=== PATIENT | male | born 1970 | race Caucasian/White ===

== ENCOUNTER → 2020-11-03 08:11 | Outpatient (BNVA) | payer OTHER, SELFPAY | PROVIDERS: PCP Nurse Practitioner Family; Visit Provider Nurse Practitioner Family ==

== ENCOUNTER → 2021-01-26 07:52 | Outpatient (BNVA) | payer OTHER, SELFPAY | PROVIDERS: PCP Nurse Practitioner Family; Visit Provider Nurse Practitioner Family ==

== ENCOUNTER 2021-03-03 09:52 | Day surgery (SDC) | payer OTHER, SELFPAY ==
[2021-02-25 14:16] VITALS: BMI 25.7
--- NOTE | 2021-03-02 12:33 | P.CONAN_ITS ---
Documented by User: Leonor Haro NP 03/02/21 12:34 HPI - Anesthesia Eval Consult details Narrative: 50yo M for Colonoscopy Xarelto for afib PMFSH Past Medical History Medical History Atrial fibrillation COVID-19 vaccine series completed Elevated cholesterol GERD (gastroesophageal reflux disease) HTN (hypertension) Sleep apnea Surgical History Surgical History Hx of tonsillectomy S/P ablation of atrial fibrillation Social History Social History Household Members: Family Alcohol intake: current Alcohol intake frequency: holidays/special occasions only Patient Tobacco Use Status: Never used Tobacco Use of substances other than those prescribed or required for medical reasons: No Have you been hit, kicked, punched, or otherwise hurt by someone within the past year? If so, by whom?: No Are you DNR?: No Advance Directives: No Advance Directives Information Provided: Yes Advance Directives on File: No Recently lost weight without trying: No Eating poorly because of decreased appetite: No Nutrition Risks: No Nutritional Risk Poor oral hygiene: No Meds Allergies Allergy/AdvReac Type Severity Reaction Status Date / Time No Known Allergies Allergy Verified 02/25/21 12:22 Home Medications Medication Instructions Recorded Confirmed Last Taken Type pantoprazole 40 mg tablet,delayed 40 mg PO DAILY 11/03/20 02/25/21 Unknown History release metoprolol succinate 100 mg 100 mg PO DAILY 01/26/21 02/25/21 Unknown History tablet,extended release 24 hr rivaroxaban 20 mg tablet (Xarelto) 20 mg PO BEDTIME 01/26/21 02/25/21 Unknown History Exam Exam Date and Time: March 02, 2021 1233 Height,Weight and Vital Signs: Height 6 ft 2 in Weight 90.718 kg Assessment and Plan Assessment Anesthesia Assessment: Chart Reviewed Documented by User: Lluvia Jane MD 03/03/21 11:41 FOR[facility]LY [facility], [facility] Past Medical History Medical History Atrial fibrillation COVID-19 vaccine series completed Elevated cholesterol GERD (gastroesophageal reflux disease) HTN (hypertension) Sleep apnea Surgical History Surgical History Hx of tonsillectomy S/P ablation of atrial fibrillation History of Problems with Anesthesia: No Social History Social History Household Members: Family Alcohol intake: current Alcohol intake frequency: holidays/special occasions only Patient Tobacco Use Status: Never used Tobacco Use of substances other than those prescribed or required for medical reasons: No Have you been hit, kicked, punched, or otherwise hurt by someone within the past year? If so, by whom?: No Are you DNR?: No Advance Directives: No Advance Directives Information Provided: Yes Advance Directives on File: No Recently lost weight without trying: No Eating poorly because of decreased appetite: No Nutrition Risks: No Nutritional Risk Poor oral hygiene: No Meds Allergies Allergy/AdvReac Type Severity Reaction Status Date / Time No Known Allergies Allergy Verified 02/25/21 12:22 Home Medications Medication Instructions Recorded Confirmed Last Taken Type pantoprazole 40 mg tablet,delayed 40 mg PO DAILY 11/03/20 02/25/21 Unknown History release metoprolol succinate 100 mg 100 mg PO DAILY 01/26/21 02/25/21 Unknown History tablet,extended release 24 hr rivaroxaban 20 mg tablet (Xarelto) 20 mg PO BEDTIME 01/26/21 02/25/21 Unknown History Exam Airway Mallampati Class: III TM Dist: >3cm Neck ROM: Full Loose/Missing/Broken Teeth: No Heart: RRR Lungs: CTA Assessment and Plan Assessment Anesthesia Assessment: Anesthesia Plan Discussed Final Anesthetic Review History of Problems with Anesthesia: No NPO: Yes ASA Class: III Final Preanesthetic Review: Meds/Allgs Chart Reviewed, Consent Obtained/Reviewed and Anes Risks/Benef Reviewed Patient Risk: Intermediate Procedure Risk: Low Anesthetic Plan Anesthetic Plan: MAC: Disposition: Standard PACU
[2021-03-03 10:57] VITALS: BP 138/96; PULSE 93; RESP 16; TEMP 35.9; O2SAT 96
[2021-03-03] MEDS: Lactated Ringers 1,000 ML 100 ML IVCONT (11:19)
--- NOTE | 2021-03-03 11:31 | P.HPSUR_ITS ---
Pre-Procedural Eval Section A Date of Service: 03/03/21 Section B Chief Complaint: Screening Relevant Family History (Specify if Yes): No Relevant Social History: None Present Medications: see Short Stay Collaborative assessment Medical History: Significant History (Atrial fibrillation COVID-19 vaccine series completed Elevated cholesterol GERD (gastroesophageal reflux disease) HTN (hypertension) Sleep apnea) History of Previous Operations: Relevant previous surgery/procedure and date(s) (Hx of tonsillectomy S/P ablation of atrial fibrillation) Allergies: Allergies Allergy/AdvReac Type Severity Reaction Status Date / Time No Known Allergies Allergy Verified 02/25/21 12:22 Review of Systems Sugical H&P ROS: Negative: Constitution, Cardiovascular, Respiratory, Neurological, Psychiatric, Hem-Onc, Allergic/Immunologic, Gastrointestinal, Genitourinary, Musculoskeletal, Integumentary, Endocrine and Eyes/Ears/Nose/Throat Exam Surgical H&P Exam: Normal: HEENT, Normal: Heart, Normal: Lungs, Normal: Extrem ities, Normal: Abdomen, Normal: Skin and Normal: Neurological Plan Diagnosis/Plan: Unchanged I have reviewed the history and physical and performed a pertinent physical examination on my patient. No changes have occurred unless specified.
--- NOTE | 2021-03-03 11:32 | PM.OP ---
Brief Operative Note Date of Service: 03/03/21 Pre-op diagnosis: screening colon Post-op diagnosis: same Procedure: see op note Surgeon: Luis A Dominguez MD Anesthesia: MAC Was an Complaint Manager used for this Procedure?: No Estimated blood loss (mL): 0 Condition: stable Disposition: PACU
--- NOTE | 2021-03-03 11:32 | W.PM.OPN ---
Operative Note Operative Note Date of Service: 03/03/21 Narrative: Operative Information Procedure Description: Colonoscopy COLONOSCOPY Instrument: Olympus variable stiffness adult scope 190L Colonoscopy Monitoring: Vital signs and clinical assessment, continuous EKG monitoring, Pulse oximetry, Carbon Dioxide monitoring and blood pressure monitoring were done throughout the procedure. Colon withdrawal time was 11 minutes. Procedure: The patient was placed in the left lateral decubitis position and pre-procedure medications were administered. After a digital rectal examination of the ano-rectum, the video colonoscope was inserted into the rectum and advanced through the colon to the cecum/TI. The colonoscope was slowly withdrawn in a retrograde panoramic fashion and the colon mucosa was carefully examined including a retroflexed view of the rectum. Findings and interventions are described below. Procedure Difficulty:moderate Findings: Terminal Ileum-normal Cecum:normal right sided retroflexion also normal Ascending Colon: normal Transverse Colon -normal Descending Colon:normal Sigmoid Colon: mild diverticulosis Rectum: Retroflexion with moderate sized inflammed internal hemorrhoids, grade II Anorectum - normal Colon preparation: [place] Bowel Preparation Scale Right colon; 2 Transverse colon: 2 Left colon; 2 (0 = Unprepared colon segment with mucosa not seen due to solid stool that cannot be cleared. 1 = Portion of mucosa of the colon segment seen, but other areas of the colon segment not well seen due to staining, residual stool and/or opaque liquid. 2 = Minor amount of residual staining, small fragments of stool and/or opaque liquid, but mucosa of colon segment seen well. 3 = Entire mucosa of colon segment seen well with no residual staining, small fragments of stool or opaque liquid) Impression and Post Procedure Diagnosis: internal hemorrhoids diverticular disease Plan: High fiber diet leaflet Avoid straining at stool, epsom salts and sitz bath, anusol supps or cream Repeat Colonoscopy in 10 years or earlier if clinically indicated Above findings were reviewed with the patient and relevant handouts were provided if indicated.
[2021-03-03 12:10] VITALS: BP 112/85; PULSE 87; RESP 18; TEMP 36.4; O2SAT 99
[2021-03-03 12:26] VITALS: BP 127/92; PULSE 77; RESP 16; TEMP 36.4; O2SAT 95
[2021-03-03 12:40] VITALS: BP 117/74; PULSE 72; RESP 16; TEMP 36.4; O2SAT 100
== END 2021-03-03 13:07 | disposition home or self-care (01) ==
PROVIDERS: PCP Internal Medicine; Visit Provider Internal Medicine Gastroenterology
PROC: 0DJD8ZZ Inspection of Lower Intestinal Tract, Via Natural or Artificial Opening Endoscopic (ICD-10-PCS; CPT 45378; principal; 2021-03-03 12:00)
DX: Z12.11 Encounter for screening for malignant neoplasm of colon (principal); K57.30 Diverticulosis of large intestine without perforation or abscess without bleeding; K64.1 Second degree hemorrhoids; K21.9 Gastro-esophageal reflux disease without esophagitis; I48.91 Unspecified atrial fibrillation; E78.00 Pure hypercholesterolemia, unspecified; G47.30 Sleep apnea, unspecified; I10 Essential (primary) hypertension; Z79.01 Long term (current) use of anticoagulants; Z79.899 Other long term (current) drug therapy
CPT/HCPCS: 45378; J2250

== ENCOUNTER 2021-10-08 11:31 | Outpatient (REF) | payer OTHER, SELFPAY ==
[2021-10-12 11:28] LABS: H Pylori Breath Test Positive (Negative)
== END 2021-10-08 11:32 | disposition home or self-care (01) ==
LOC: HO.LNP 11:31
PROVIDERS: Visit Provider Physician Assistant Surgical
DX: E66.01 Morbid (severe) obesity due to excess calories (principal)
CPT/HCPCS: 83013

== ENCOUNTER 2021-10-14 06:13 | Outpatient (REF) | payer OTHER, SELFPAY ==
--- NOTE | ~2021-10-14 | XR_ITS ---
EXAMINATION: XR CHEST CLINICAL INFORMATION: Morbid obesity COMPARISON: April 13, 2007 TECHNIQUE: 2 views of the chest were obtained. FINDINGS: No significant abnormality is noted involving the heart, lungs, mediastinum, bony thorax or soft tissues. XR/XR chest 2V IMPRESSION: No acute disease.
--- NOTE | 2021-10-14 06:29 | ECG_ITS ---
Test Reason : PREOP Blood Pressure : / mmHG Vent. Rate : 069 BPM Atrial Rate : 069 BPM P-R Int : 184 ms QRS Dur : 094 ms QT Int : 410 ms P-R-T Axes : 067 029 050 degrees QTc Int : 439 ms Normal sinus rhythm Normal ECG No previous ECGs available Referred By: Tian Bowens Electronically Signed By:AMANDA COCHRAN
[2021-10-14 06:36] LABS: MANUAL DIFF FLAG NO
[2021-10-14 07:21] LABS: Estimated Average Glucose 97 mg/dL
[2021-10-14 07:37] LABS: Basophils Absolute Auto 0.1 X10*3/uL (0.0-0.2); Basophils Percent Auto 0.7 % (0-2); Eosinophils Absolute Auto 0.4 X10*3/uL (0.0-0.4); Eosinophils Percent Auto 5.8 % (0-4); Hematocrit 44.6 % (42.0-52.0); Hemoglobin 15.1 g/dl (14.0-18.0); Imm Gran Abs Auto 0.02 X10*3/uL (0.00-0.03); Imm Gran Pct Auto 0.3 % (0.0-0.4); Lymphocytes Absolute Auto 2.4 X10*3/uL (1.2-4.9); Lymphocytes Percent Auto 34.6 % (20-40); Mean Corpuscular HGB Conc 33.9 g/dl (31.0-36.0); Mean Corpuscular Hemoglobin 32.5 pg (27.0-33.0); Mean Corpuscular Volume 95.9 fL (80.0-98.0); Monocytes Absolute Auto 0.7 X10*3/uL (0.1-1.2); Monocytes Percent Auto 10.7 % (2-11); Neutrophils Absolute Auto 3.3 x10*3/uL (2.0-8.3); Neutrophils Percent Auto 47.9 % (45-73); Platelet Count 370 X10*3/uL (160-400); Red Blood Count 4.65 X10*6/uL (4.60-5.80); Red Cell Distribution Width 12.4 % (11.0-16.0); White Blood Count 6.9 X10*3/uL (4.8-10.8)
[2021-10-14 07:54] LABS: Alanine Aminotransferase 30 U/L (0-40); Albumin Level 4.9 g/dL (3.5-5.0); Alkaline Phosphatase 78 U/L (39-117); Anion Gap 17 (12-20); Aspartate Amino Transferase 34 U/L (5-37); Bilirubin Total 0.7 mg/dL (0.0-1.0); Blood Urea Nitrogen 19 mg/dL (9-16); C Reactive Protein 0.86 mg/dL (< or = 0.50); Calcium 9.5 mg/dL (8.4-10.2); Carbon Dioxide 26 mmol/L (22-29); Chloride 102 mmol/L (96-108); Cholesterol 228 mg/dL; Estimated Glomerular Filt Rate > 60; Glucose Random 99 mg/dL (60-115); HDL Cholesterol 42 mg/dL; Iron 67 mcg/dL (45-160); LDL Cholesterol Calculated 168 mg/dl; Percent Iron Saturation 19 % (15-50); Potassium 4.5 mmol/L (3.3-5.1); Sodium 140 mmol/L (135-145); Total Iron Binding Capacity 347 mcg/dL (228-428); Total Protein 7.7 g/dL (6.5-8.0); Triglycerides 94 mg/dL; Unsaturated Iron Binding 280 ug/dL
[2021-10-14 08:04] LABS: Ferritin 647 ng/mL (20-250); Insulin 13 uU/mL (2-29); TSH reflex Free T4 3.33 uIU/mL (0.32-4.0); Vitamin D 25-OH Total 41.4 ng/mL (>30)
[2021-10-14 08:08] LABS: Folate 11.3 ng/mL (> or = 4.0); Vitamin B12 612 pg/mL (200-900)
[2021-10-15 13:36] LABS: Calcium (PTHI) 9.8 mg/dL (8.6-10.3); PTHI 83 pg/mL (16-77)
[2021-10-20 00:56] LABS: Zinc 73 mcg/dL (60-130)
[2021-10-21 11:11] LABS: Vitamin B1 7 nmol/L (8-30)
[2021-10-21 20:26] LABS: Vitamin A 43 mcg/dL (38-98)
== END 2021-10-14 06:14 | disposition home or self-care (01) ==
LOC: HO.XRAY 06:13
PROVIDERS: PCP Internal Medicine; Visit Provider Physician Assistant Surgical
DX: E66.01 Morbid (severe) obesity due to excess calories (principal)
CPT/HCPCS: 36415; 71046; 80053; 80061; 82306; 82607; 82728; 82746; 83036; 83525; 83540; 83970; 84425; 84443; 84590; 84630; 85025; 86140; 93005

== ENCOUNTER → 2021-10-21 11:27 | Outpatient (BNVA) | payer OTHER, SELFPAY | PROVIDERS: PCP Internal Medicine; Referring Provider Physician Assistant Surgical; Visit Provider Dietitian, Registered | DX: E66.01 Morbid (severe) obesity due to excess calories (principal) | CPT/HCPCS: 97802 ==

== ENCOUNTER → 2021-11-04 15:00 | Outpatient (BNVA) | payer OTHER, SELFPAY | PROVIDERS: Visit Provider Counselor Mental Health | DX: F32.A Depression, unspecified (principal); E66.01 Morbid (severe) obesity due to excess calories | CPT/HCPCS: 90791 ==

== ENCOUNTER 2021-11-09 15:25 | Outpatient (REF) | payer OTHER, SELFPAY ==
[2021-11-12 13:42] LABS: H Pylori Breath Test Negative (Negative)
== END 2021-11-09 15:26 | disposition home or self-care (01) ==
LOC: HO.LNP 15:25
PROVIDERS: Visit Provider Physician Assistant Surgical
DX: Z01.818 Encounter for other preprocedural examination (principal)
CPT/HCPCS: 83013

== ENCOUNTER 2021-11-11 09:43 | Outpatient (REF) | payer OTHER, SELFPAY ==
--- NOTE | ~2021-11-11 | FL_ITS ---
EXAMINATION: XR FLUOROSCOPY UPPER GI WITH AIR CLINICAL INFORMATION: Obesity COMPARISON: None TECHNIQUE: Upper GI was performed using thin and thick barium and effervescent granules. FINDINGS: Esophageal motility is normal. No hernia or reflux is seen. The esophagus and duodenum are normal. No fold thickening, mass, ulcer or stricture is seen. FLUOROSCOPY TIME: 0.4 minutes DOSE AREA PRODUCT: 5 penny per centimeter squared. 17 saved fluoroscopic images. FL/FL upper GI w air IMPRESSION: Unremarkable examination.
--- NOTE | ~2021-11-11 | US_ITS ---
EXAMINATION: US COMPLETE ABDOMEN WITH LIVER ELASTOGRAPHY CLINICAL INFORMATION: Obesity COMPARISON: None. TECHNIQUE: Real-time imaging of the abdominal viscera. Noninvasive ultrasound liver fibrosis assessment is performed using Lionel ElastPQ point quantification shear wave elastography (2D-SWE) with a C5-2 MHz transducer. Multiple elastography samples are obtained. FINDINGS: PANCREAS: Normal. ABDOMINAL AORTA: The middle, and distal aortic segments are normal in caliber. The proximal abdominal aorta is not well visualized. INFERIOR VENA CAVA: Visualized portions are normal. LIVER: The liver is not well visualized.. The liver demonstrates normal size, contour and echogenicity. No focal lesion or intrahepatic biliary duct dilatation. The right lobe measures 15 cm in length. The left lobe measures 8 cm in length. Portal flow is normal/hepatopedal Shear wave liver elastography median stiffness is 1.5 m/s (reference: normal median stiffness is 1.3 m/s or less). IQR/median stiffness to assess sampling precision is 0.13 (reference: good quality data set is IQR/median stiffness of 0.15 or less). GALLBLADDER: Normal. The gallbladder is physiologically distended without evidence of stones, sludge, polyps, wall thickening or pericholecystic fluid. COMMON BILE DUCT: Normal in caliber measuring 0.3 cm in diameter. RIGHT KIDNEY: Normal. No hydronephrosis. No renal calculi or focal parenchymal lesions. The kidney measures 10 cm in maximum dimension. LEFT KIDNEY: Normal. No hydronephrosis. No renal calculi or focal parenchymal lesions. The kidney measures 11 cm in maximum dimension. SPLEEN: Normal. The spleen measures 11 cm in maximum dimension. FREE FLUID: None. US/US abdomen comp w elastography IMPRESSION: 1. Impression Limited exam due to body habitus. Limited visualization of the liver and upper abdominal aorta. 2. Liver elastography: Adequate liver sampling. Normal liver stiffness. REFERENCE: Society of Radiologists in Ultrasound Liver Stiffness Thresholds (2020): LIVER STIFFNESS THRESHOLDS: *Liver Stiffness equal or less than 1.3 m/s: High probability of being normal. *Liver Stiffness less than 1.7 m/s: In the absence of other known clinical signs, rules out compensated advanced chronic liver disease. *Liver Stiffness 1.7-2.1 m/s: Suggestive of compensated advanced chronic liver disease but need further test for confirmation. *Liver Stiffness over 2.1 m/s: Rules in compensated advanced chronic liver disease. *Liver Stiffness over 2.4 m/s: Suggestive of clinically significant portal hypertension. QUALITY OF DATA SET: *IQR/Median value equal or less than 0.15 implies a quality data set. *IQR/Median value over 0.15 implies a poor quality data set. SIGNIFICANT CHANGE FROM PRIOR EXAM: Significant change if liver stiffness measurement is 10% or greater from prior exam. OTHER CONSIDERATIONS: The stage of liver fibrosis may be overestimated in the setting of acute hepatitis, liver inflammation, elevated liver function tests, hepatic vascular congestion, obstructive cholestasis, non-fasting state, and infiltrative diseases such as amyloidosis and lymphoma. In some patients with NAFLD, the liver stiffness thresholds for compensated advanced chronic liver disease may be lower. In causes other than viral hepatitis and NAFLD, liver stiffness thresholds are not well established.
== END 2021-11-11 09:44 | disposition home or self-care (01) ==
LOC: HO.US 09:43
PROVIDERS: Visit Provider Physician Assistant Surgical
DX: Z01.818 Encounter for other preprocedural examination (principal); E66.01 Morbid (severe) obesity due to excess calories
CPT/HCPCS: 74246; 76705; 76981

== ENCOUNTER → 2021-12-30 05:50 | Day surgery (SDC) | payer OTHER, SELFPAY ==
[2021-12-23 09:45] VITALS: BMI 36.6
[2021-12-24 07:42] LABS: INTERNATIONAL NORM RATIO 1.1 (0.9-1.1); Prothrombin Time 12.6 SEC (10.0-13.1)
[2021-12-24 07:44] LABS: Partial Thromboplastin Time 35.3 SEC (26.0-36.4)
[2021-12-24 07:45] LABS: Basophils Absolute Auto 0.1 X10*3/uL (0.0-0.2); Eosinophils Absolute Auto 0.5 X10*3/uL (0.0-0.4); Eosinophils Percent Auto 8.5 % (0-4); Hematocrit 45.9 % (42.0-52.0); Hemoglobin 15.6 g/dl (14.0-18.0); Imm Gran Abs Auto 0.04 X10*3/uL (0.00-0.03); Imm Gran Pct Auto 0.7 % (0.0-0.4); Lymphocytes Absolute Auto 1.8 X10*3/uL (1.2-4.9); Lymphocytes Percent Auto 29.7 % (20-40); MANUAL DIFF FLAG SCAN; Mean Corpuscular Hemoglobin 33.5 pg (27.0-33.0); Mean Corpuscular Volume 98.5 fL (80.0-98.0); Mean Platelet Volume 12.1 fL (9.4-12.4); Monocytes Absolute Auto 0.6 X10*3/uL (0.1-1.2); Monocytes Percent Auto 9.5 % (2-11); Neutrophils Absolute Auto 3.1 x10*3/uL (2.0-8.3); Neutrophils Percent Auto 50.6 % (45-73); PLT CLUMP 1; Red Blood Count 4.66 X10*6/uL (4.60-5.80); Red Cell Distribution Width 13.1 % (11.0-16.0); SCAN SMEAR FLAG 1
[2021-12-24 07:46] LABS: White Blood Count 6.1 X10*3/uL (4.8-10.8)
[2021-12-24 07:57] LABS: Estimated Average Glucose 94 mg/dL; Hemoglobin A1c % 4.9 %
[2021-12-24 08:02] LABS: Alanine Aminotransferase 19 U/L (0-40); Albumin Level 4.7 g/dL (3.5-5.0); Alkaline Phosphatase 76 U/L (39-117); Anion Gap 19 (12-20); Aspartate Amino Transferase 26 U/L (5-37); Bilirubin Total 0.7 mg/dL (0.0-1.0); Blood Urea Nitrogen 18 mg/dL (9-16); C Reactive Protein 0.57 mg/dL (< or = 0.50); Calcium 9.5 mg/dL (8.4-10.2); Carbon Dioxide 20 mmol/L (22-29); Chloride 105 mmol/L (96-108); Cholesterol 198 mg/dL; Creatinine Clr Calc Pharmacy 143.5; Estimated Glomerular Filt Rate > 60; Glucose Random 88 mg/dL (60-115); HDL Cholesterol 40 mg/dL; LDL Cholesterol Calculated 145 mg/dl; Potassium 4.8 mmol/L (3.3-5.1); Sodium 139 mmol/L (135-145); Total Protein 7.4 g/dL (6.5-8.0); Triglycerides 66 mg/dL
[2021-12-24 08:06] LABS: Platelet Count 178 X10*3/uL (160-400)
[2021-12-24 08:07] LABS: SLIDE REVIEW VERIFIED
[2021-12-24 08:20] LABS: Insulin 10 uU/mL (2-29); TSH reflex Free T4 1.94 uIU/mL (0.32-4.0)
--- NOTE | 2021-12-24 23:09 | MHC.SHP ---
Pre-Procedural Eval Section A Date of Service: 12/24/21 The patient is an INPATIENT: No The History & Physical has been completed within 30 days and I have reviewed it.: Yes Section B Chief Complaint: obesity Relevant Family History (Specify if Yes): No Relevant Social History: None Present Medications: None Medical History: No relevant PMH History of Previous Operations: No relevant previous surgery Allergies: Allergies Allergy/AdvReac Type Severity Reaction Status Date / Time No Known Allergies Allergy Verified 12/23/21 09:58 Review of Systems Sugical H&P ROS: Negative: Constitution, Cardiovascular, Respiratory, Neurological, Psychiatric, Hem-Onc, Allergic/Immunologic, Gastrointestinal, Genitourinary, Musculoskeletal, Integumentary, Endocrine and Eyes/Ears/Nose/Throat Exam Surgical H&P Exam: Normal: HEENT, Normal: Heart, Normal: Lungs, Normal: Extremities, Normal: Abdomen, Normal: Skin and Normal: Neurological Plan Diagnosis/Plan: Unchanged I have reviewed the history and physical and performed a pertinent physical examination on my patient. No changes have occurred unless specified.
--- NOTE | 2021-12-29 09:57 | HO.ANESPROP2 ---
HPI - Anesthesia Eval Consult details Narrative: Cx'd DOS d/t recurrance of afib and med noncompliance 51yo M for Gastrectomy Sleeve,EGD,poss diaphragmatic hernia,poss ventral hernia,poss open, Xarelto for afib - bridging with arixtra PMFSH Active Problems Active Problems: All Active Problems (Updated 12/23/21 @ 09:58 by Alma Hinton RN) Morbid obesity (Acute) Sleep apnea with use of continuous positive airway pressure (CPAP) (Acute) DJD (degenerative joint disease) (Acute) Depressive disorder (Acute) Obesity (Acute) BMI 36.0-36.9,adult (Acute) GERD (gastroesophageal reflux disease) (Acute) Atrial fibrillation (Acute) Past Medical History Medical History Atrial fibrillation COVID-19 vaccine series completed Elevated cholesterol GERD (gastroesophageal reflux disease) History of COVID-19 HTN (hypertension) On anticoagulant therapy On beta salud at home Sleep apnea Surgical History Surgical History Hx of colonoscopy Hx of knee surgery Hx of tonsillectomy S/P ablation of atrial fibrillation History of Problems with Anesthesia: No Social History Social History Household Members: Family Household Members Other:: Mother 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) Do you presently have visiting nurse or other home services: No Alcohol intake: current Alcohol intake frequency: a few times a month Patient Tobacco Use Status: Never used Tobacco Second Hand Smoke Exposure: No Meds Allergies Allergy/AdvReac Type Severity Reaction Status Date / Time No Known Allergies Allergy Verified 12/30/21 06:19 Home Medications Medication Instructions Recorded Confirmed Last Taken Type metoprolol succinate 100 mg 100 mg PO DAILY 01/26/21 12/30/21 12/28/21 History tablet,extended release 24 hr rivaroxaban 20 mg tablet (Xarelto) 20 mg PO BEDTIME 01/26/21 12/30/21 12/25/21 History meloxicam 15 mg tablet 15 mg PO DAILY 09/21/21 12/30/21 12/21/21 History Exam Exam Date and Time: December 29, 2021 0957 Height,Weight and Vital Signs: Height 6 ft 2 in Weight 129.274 kg Pertinent Lab Results Pertinent Lab Results: Laboratory Tests 12/24/21 12/24/21 12/24/21 06:20 06:20 06:20 WBC 6.1 RBC 4.66 Hgb 15.6 Hct 45.9 MCV 98.5 H MCH 33.5 H MCHC 34.0 RDW 13.1 Plt Count 178 D MPV 12.1 Immature Gran % (Auto) 0.7 H Neut % (Auto) 50.6 Lymph % (Auto) 29.7 Nelson % (Auto) 9.5 Eos % (Auto) 8.5 H Baso % (Auto) 1.0 Lymph # (Auto) 1.8 Nelson # (Auto) 0.6 Eos # (Auto) 0.5 H Baso # (Auto) 0.1 Abs Immat Gran (auto) 0.04 H Absolute Neuts (auto) 3.1 Absolute Nucleated RBC 0.000 Nucleated RBC % (auto) 0.0 Smear Tech's Comments VERIFIED PT 12.6 INR 1.1 APTT 35.3 Sodium 139 Potassium 4.8 Chloride 105 Carbon Dioxide 20 L Anion Gap 19 BUN 18 H Creatinine 0.87 Estim Creat Clear Calc 143.5 Estimated GFR > 60 Random Glucose 88 Estimat Average Glucose Hemoglobin A1c % Insulin Level 10 Calcium 9.5 Total Bilirubin 0.7 AST 26 ALT 19 Alkaline Phosphatase 76 C-Reactive Protein 0.57 H Total Protein 7.4 Albumin 4.7 Triglycerides 66 Cholesterol 198 LDL Cholesterol, Calc 145 HDL Cholesterol 40 TSH 1.94 Blood Type Antibody Screen 12/24/21 12/24/21 06:20 06:20 WBC RBC Hgb Hct MCV MCH MCHC RDW Plt Count MPV Immature Gran % (Auto) Neut % (Auto) Lymph % (Auto) Nelson % (Auto) Eos % (Auto) Baso % (Auto) Lymph # (Auto) Nelson # (Auto) Eos # (Auto) Baso # (Auto) Abs Immat Gran (auto) Absolute Neuts (auto) Absolute Nucleated RBC Nucleated RBC % (auto) Smear Tech's Comments PT INR APTT Sodium Potassium Chloride Carbon Dioxide Anion Gap BUN Creatinine Estim Creat Clear Calc Estimated GFR Random Glucose Estimat Average Glucose 94 Hemoglobin A1c % 4.9 Insulin Level Calcium Total Bilirubin AST ALT Alkaline Phosphatase C-Reactive Protein Total Protein Albumin Triglycerides Cholesterol LDL Cholesterol, Calc HDL Cholesterol TSH Blood Type O Positive Antibody Screen NEGATIVE Narrative Narrative: EKG 12/2021 Vent. Rate : 069 BPM ? ? Atrial Rate : 069 BPM ?? P-R Int : 184 ms? QRS Dur : 094 ms ? ? QT Int : 410 ms ? ? ? P-R-T Axes : 067 029 050 degrees ?? QTc Int : 439 ms ? Normal sinus rhythm Normal ECG No previous ECGs available Assessment and Plan Assessment Anesthesia Assessment: Chart Reviewed Final Anesthetic Review History of Problems with Anesthesia: No
[2021-12-29 12:41] LABS: COVID-19 Test Negative (Negative); IDNOW Serial# BCCEAD1C
--- OUTSIDE RECORDS SUMMARY | 2021-12-30 06:13 | XMS_ITS | Continuity of Care Document ---
:1970 Author Organization [facility] Address [address] [place] [id number] Care Team Providers Name Role Phone Not on Staff, PCP Primary Care Physician Unavailable [place] [facility] [place] - 12/02/[address] [id number] Attending Physician: Nick Garcia MD Admitting Physician: Nick Garcia MD Allergies, Adverse Reactions, Alerts No Known Allergies Medications metoprolol 100 mg oral tablet 100 mg, 1, tablet, By Mouth, 2 times a day, # 180 tablet, Refills 0, Maintenance, 04/27/21 10:53:00 EDT, Partial fill upon patient request if the prescription is for a schedule II opioid drug. Start Date: 04/27/21 Status: OrderedoxyCODONE 5 mg oral tablet 10 mg, 2, tablet, By Mouth, Every 6 hours, PRN, Refills 0, Tot. Refills 0, Maintenance, as needed for pain, 04/27/21 10:54:00 EDT, Partial fill upon patient request if the prescription is for a schedule II opioid drug. Start Date: 04/27/21 Status: Orderedpantoprazole 20 mg oral delayed release tablet 1 tablet = 20 mg, By Mouth, Daily, # 30 tablet, 0 Refills, Maintenance, 04/27/21 10:54:00 EDT, CR Tablet Start Date: 04/27/21 Status: OrderedTylenol 8 Hour 650 mg oral tablet, extended release 2 tablet = 1,300 mg, By Mouth, Every 8 hours, PRN as needed for pain, # 50 tablet, 0 Refills, Maintenance, 04/27/21 10:54:00 EDT, ER Tablet, Partial fill upon patient request if the prescription is fora schedule II opioid drug. Start Date: 04/27/21 Status: OrderedXarelto 20 mg oral tablet 1 tablet = 20 mg, By Mouth, Daily at supper, # 30 tablet, 0 Refills, Maintenance, 04/27/21 10:54:00 EDT, Tablet, Partial fill upon patient request if the prescription is for a schedule II opioid drug. Start Date: 04/27/21 Status: Ordered Problem List Condition Confirmation Course Effective Dates Status Health Stat us Informant Severe obesity Confirmed Active Patient Care team information PersonnelName: Not on Staff, PCP
--- NOTE | 2021-12-30 06:30 | ECG_ITS ---
Test Reason : PREOP Blood Pressure : / mmHG Vent. Rate : 093 BPM Atrial Rate : 000 BPM P-R Int : 000 ms QRS Dur : 090 ms QT Int : 360 ms P-R-T Axes : 000 000 004 degrees QTc Int : 447 ms Atrial fibrillation Minimal voltage criteria for LVH, may be normal variant ( R in aVL ) Abnormal ECG When compared with ECG of 14-OCT-2021 06:33, Atrial fibrillation has replaced Sinus rhythm T wave inversion now evident in Inferior leads Heart rate has increased Referred By: Robin Colin Electronically Signed By:GAYATRI LINDA MD
[2021-12-30 07:00] VITALS: BP 120/55; PULSE 104; RESP 16; TEMP 35.9; O2SAT 96
[2021-12-30] MEDS: Metoprolol Succinate ER 100 MG TAB.ER.24H PO (07:24)
[2021-12-30] MEDS: Lactated Ringers 1,000 ML 100 ML IVCONT (07:41)
--- NOTE | 2021-12-30 09:31 | PC.NURSE ---
Patient arrived to [facility] for surgical prep. When reconciling last doses of medications, patient stated I did everything on the doctors instruction sheet . See home med list. Patient verified he did not take any morning medications and that last dose of Metoprolol was two days ago (12/28). monitoring manager showed questionable Afib. HR 80's- 120's. All other VS WNL. Patient has known history of paroxysmal Afib. EKG obtained as ordered, results showed Afib. Dr. Colin and Dr. Villasenor at bedside. Per both doctors, case to be cancelled due to rhythm changes and to be transferred to ED for further cardiac workup. New order to give one time dose of PO metoprolol now, medication given per APR. Phone report given to Dona STEVENS in the ED. MD to MD report also given by Tian Bowens. Per patient request, girlfrienflash Ahumada called by this RN and was updated with plan. Upon transfer, Dr. Villasenor added a new order for one time dose of SQ Fondaparinux. This medication not readily available in PACU/OR Pyxis. Patient transferred on monitor by HILDA Dickson and liborio. ED nurse Eleanor made aware that Fondaparinux was not given and to ensure it gets administered per order - also reminded through [place] [employer]. Eleanor also made aware that metoprolol one time dose was given in preop.
--- NOTE | 2021-12-30 11:15 | P.CONCA_ITS ---
History of Present Illness History of Present Illness Date of Service: 12/30/21 Requesting physician: Tian Bowens Consult reason: atrial fibrillation Chief complaint: obesity Narrative: I was requested to see this patient for atrial fibrillation. Patient is a 51-year-old male with prior history of what appears to be paroxysmal atrial f ibrillation, obesity as well as anxiety/depressive disorder and obstructive sleep apnea. Patient came in today in preop area for bariatric surgery and was noted to be in atrial fibrillation. Surgery was canceled and Cardiology was consulted for further management plan. Patient completely asymptomatic. Hemodynamically stable. Denies any symptoms of palpitations or lightheadedness. No shortness of breath. Patient says in the past he has never had symptoms related to atrial fibrillation. He was incidentally detected to have atrial fibrillation while having colonoscopy. This was then treated with synchronized cardioversion last year with help of a resistance welding machine operator Dr. Lopez in [facility]. He said after that he was told that he was in normal sinus rhythm. However he does not recall much of the other cardiac workup done there. He was on oral anticoagulation therapy with Xarelto which has been stopped and was replaced with direct thrombin inhibitorfondaparinux in preparation for surgery. Patient was also total out different medication and says for the last 2 days he forgot to take metoprolol. He said otherwise very active and with exertion including cutting wood for 2 hours and walking he has no cardiac symptoms. Denies any chest pain or shortness of breath. He is not aware when he is in atrial fibrillation as already mentioned. Review of Systems Review of Systems: Yes all other systems are reviewed and are negative PMFSH Past Medical History Medical History (Updated 12/30/21 @ 11:20 by Nikos Muniz MD) Atrial fibrillation COVID-19 vaccine series completed Elevated cholesterol GERD (gastroesophageal reflux disease) History of COVID-19 HTN (hypertension) On anticoagulant therapy On beta salud at home Sleep apnea Surgical History Surgical History Hx of colonoscopy Hx of knee surgery Hx of tonsillectomy S/P ablation of atrial fibrillation Social History Social History Household Members: Family Household Members Other:: Mother Are you a primary patient care manager to a significant other at home: Yes (Helps take care of his mother) Do you presently have visiting nurse or other home services: No Alcohol intake: current Alcohol intake frequency: a few times a month Patient Tobacco Use Status: Never used Tobacco Smoked in Last 30 Days: No Second Hand Smoke Exposure: No Use of substances other than those prescribed or required for medical reasons: No Advance Directives: No Advance Directives Information Provided: Yes Meds Allergies Allergy/AdvReac Type Severity Reaction Status Date / Time No Known Allergies Allergy Verified 12/30/21 06:19 Active Medications: Current Medications Lactated Ringer's (Lr) 1,000 mls @ 100 mls/hr IVCONT .Q10H ROMAINE Last Admin: 12/30/21 07:41 Dose: 100 mls/hr Home Medications Medication Instructions Recorded Confirmed Last Taken Type metoprolol succinate 100 mg 100 mg PO DAILY 01/26/21 12/30/21 12/28/21 History tablet,extended release 24 hr rivaroxaban 20 mg tablet (Xarelto) 20 mg PO BEDTIME 01/26/21 12/30/21 12/25/21 History meloxicam 15 mg tablet 15 mg PO DAILY 09/21/21 12/30/21 12/21/21 History Physical Exam Vital Signs: Vital Signs: Last Vital Signs Temp 96.7 F L 12/30/21 07:00 Pulse 104 H 12/30/21 07:00 Resp 16 12/30/21 07:00 BP 120/55 L 12/30/21 07:00 Pulse Ox 96 12/30/21 07:00 O2 Del Method 12/30/21 07:00 BMI result Body Mass Index 36.6 Const: General: cooperative, comfortable, no acute distress, alert, awake and anxious Nutritional Appearance: obese Orientation/consciousness: patient oriented x3 Limitations: no limitations HEENT: Head: Yes normocephalic and Yes atraumatic Neck: Neck: Yes trachea midline, Yes supple and Yes no JVD Resp: Effort & Inspection: normal respiratory effort Auscultation: clear to auscultation bilaterally Cardio: Jugular venous distension: no JVD Rate: regular rate Rhythm: abnormal rhythm irregularly irregular Heart sounds: S1 normal heart sound present, S2 normal heart sound present, no click, no gallops, no murmurs and no rubs GI: Auscultation: normal bowel sounds Skin: General skin exam: no rashes or lesions noted Neuro: General: patient oriented x3 and no focal motor deficits Extrem: General: Yes no clubbing, cyanosis or edema Psych: Appearance: grossly normal Objective Labs and Meds Result diagrams: 12/24/21 06:20 12/24/21 06:20 Lab results: Laboratory Results - last 24 hr 12/29/21 12:00 COVID-19 (SHIVA) Negative COVID-19 Clin Com See Note EKG reviewed by me most recent in the ED shows atrial fibrillation with possible LVH without acute ST T wave changes. Assessment and Plan (1) Atrial fibrillation: Qualifiers: Atrial fibrillation type: paroxysmal Qualified Code(s): I48.0 - Paroxysmal atrial fibrillation Status: Acute Incidental finding of recurrent atrial fibrillation preoperatively for which the surgery was canceled today. Patient is completely asymptomatic without any symptoms of rapid heart rate or any signs or symptoms of cardiac decompensation. He had synchronized cardioversion last year apparently. Will obtain old records from his resistance welding machine operator's office including an echocardiogram result. Most likely recurrent atrial fibrillation related to surgical prep as well as missing his metoprolol dose and probably stress of the surgery. His rate is adequately controlled at this point in time on metoprolol therapy. He has no prior history of coronary artery disease and currently has good functional capacity without any exertional symptoms and the fact that he has to undergo bariatric surgery which is considered intermediate risk surgery, from cardiac perspective from coronary perspective is optimized. Will like to review his echocardiogram and see what his last ejection fraction was. Clinically has no signs or symptoms of cardiomyopathy or congestive heart failure. If his last echocardiogram was with within acceptable limits, I think he is optimized to undergo surgery with low to intermediate risk. Continue metoprolol in the perioperative. During surgery for rate becomes an issue can use IV esmolol and/or IV Cardizem. His oral anticoagulation has been withheld in preparation with surgery, overall low risk because of low chads Vasc score. However post surgically would anticoagulated him as soon as possible so that if he remains in atrial fibrillation can plan for synchronized cardioversion as outpatient in near future to avoid development of heart failure syndrome eventually. Continue CPAP therapy. Will sign of the case. Patient can be discharged home. After I finished a dictation I received records from his resistance welding machine operator office. Echocardiogram done last September showed LVEF of 40-45%. I think this should be repeated prior to proceeding with bariatric surgery as this would determine further management during the perioperative time. Can be done as an outpatient hopefully tomorrow Procedures Date of Service Date of Service: 12/30/21
== END ==
PROVIDERS: Physician Assistant Surgical; PCP Internal Medicine; Visit Provider Surgery
DX: E66.01 Morbid (severe) obesity due to excess calories (principal); I48.0 Paroxysmal atrial fibrillation; Z53.09 Procedure and treatment not carried out because of other contraindication; Z68.36 Body mass index [BMI] 36.0-36.9, adult; I10 Essential (primary) hypertension; Z79.01 Long term (current) use of anticoagulants; Z20.822 Contact with and (suspected) exposure to COVID-19
CPT/HCPCS: 36415; 80053; 80061; 83036; 83525; 84443; 85025; 85610; 85730; 86140; 86850; 86900; 86901; 87635; 93005; C9088; J0131; J1100; J1652; J2795

== ENCOUNTER 2021-12-30 09:08 | Emergency (ER) | payer OTHER, SELFPAY ==
--- NOTE | ~2021-12-30 | XR_ITS ---
EXAMINATION: XR CHEST CLINICAL INFORMATION: Shortness of breath. COMPARISON: 10/14/2021 chest radiographs. TECHNIQUE: Frontal view of the chest was obtained. FINDINGS: No significant abnormality is noted involving the heart, lungs, mediastinum, bony thorax or soft tissues. XR/XR chest 1V IMPRESSION: No acute cardiopulmonary process.
--- NOTE | 2021-12-30 09:12 | ECG_ITS ---
Test Reason : a.fib Blood Pressure : / mmHG Vent. Rate : 088 BPM Atrial Rate : 000 BPM P-R Int : 000 ms QRS Dur : 092 ms QT Int : 360 ms P-R-T Axes : 000 -05 -06 degrees QTc Int : 435 ms Atrial fibrillation Nonspecific ST abnormality Minimal voltage criteria for LVH, may be normal variant ( R in aVL ) Abnormal ECG When compared with ECG of 30-DEC-2021 06:53, No significant change was found Referred By: May Potter Electronically Signed By:GAYATRI LINDA MD
[2021-12-30 09:22] VITALS: BP 103/75; PULSE 100; RESP 16; TEMP 36.8; O2SAT 98; BMI 35.9
[2021-12-30 10:00] LABS: MANUAL DIFF FLAG NO
[2021-12-30 10:03] LABS: Basophils Percent Auto 0.5 % (0-2); Eosinophils Absolute Auto 0.1 X10*3/uL (0.0-0.4); Hematocrit 49.6 % (42.0-52.0); Hemoglobin 16.9 g/dl (14.0-18.0); Imm Gran Abs Auto 0.02 X10*3/uL (0.00-0.03); Imm Gran Pct Auto 0.3 % (0.0-0.4); Lymphocytes Absolute Auto 1.3 X10*3/uL (1.2-4.9); Lymphocytes Percent Auto 16.8 % (20-40); Mean Corpuscular HGB Conc 34.1 g/dl (31.0-36.0); Mean Corpuscular Hemoglobin 32.3 pg (27.0-33.0); Mean Corpuscular Volume 94.8 fL (80.0-98.0); Mean Platelet Volume 10.6 fL (9.4-12.4); Monocytes Absolute Auto 0.4 X10*3/uL (0.1-1.2); Monocytes Percent Auto 5.1 % (2-11); Neutrophils Percent Auto 76.3 % (45-73); Platelet Count 271 X10*3/uL (160-400); Red Blood Count 5.23 X10*6/uL (4.60-5.80); Red Cell Distribution Width 12.7 % (11.0-16.0); White Blood Count 7.8 X10*3/uL (4.8-10.8)
[2021-12-30 10:08] LABS: INTERNATIONAL NORM RATIO 1.2 (0.9-1.1); Prothrombin Time 13.7 SEC (10.0-13.1)
[2021-12-30 10:11] LABS: Partial Thromboplastin Time 41.6 SEC (26.0-36.4)
[2021-12-30 10:18] LABS: Alanine Aminotransferase 20 U/L (0-40); Albumin Level 4.7 g/dL (3.5-5.0); Alkaline Phosphatase 73 U/L (39-117); Anion Gap 14 (12-20); Aspartate Amino Transferase 27 U/L (5-37); Bilirubin Direct 0.3 mg/dL (0.0-0.5); Bilirubin Total 0.8 mg/dL (0.0-1.0); Blood Urea Nitrogen 10 mg/dL (9-16); Calcium 9.9 mg/dL (8.4-10.2); Carbon Dioxide 27 mmol/L (22-29); Chloride 101 mmol/L (96-108); Creatinine Clr Calc Pharmacy 130.2; Estimated Glomerular Filt Rate > 60; Glucose Random 111 mg/dL (60-115); Magnesium 2.4 mg/dL (1.6-2.6); Potassium 4.4 mmol/L (3.3-5.1); Sodium 138 mmol/L (135-145); Total Protein 7.3 g/dL (6.5-8.0)
[2021-12-30 10:24] LABS: B Type Natriuretic Peptide 22 pg/mL (<100); Troponin-I High Sensitivity 5.6 ng/L (<3.5-35.0)
[2021-12-30 10:47] LABS: Appearance Urine Clear; Color Urine Yellow; Glucose Urine UA Negative (Negative); Leukocyte Esterase Urine Negative (Negative); Nitrite Urine Negative (Negative); PH 5.5 (5.0-9.0); Urine Blood Negative (Negative); Urine Ketones 15 mg/dL (Negative); Urine Protein Negative (Neg-Trace)
[2021-12-30 11:01] LABS: COVID-19 Test Negative (Negative); IDNOW Serial# 55D5AD1C
--- NOTE | 2021-12-30 11:03 | PC.NURSE ---
pt brought in from PACU where he was getting worked up to receive a gastric sleeve surgery. pt was found to be in A.Fib. per dr holm - request for cardiac work up before proceeding with surgery.
[2021-12-30 11:11] LABS: Amphetamine Screen Urine Not Detected (Not Detect); Barbiturates, Urine Not Detected (Not Detect); Benzodiazepines Screen Urine Not Detected (Not Detect); Cannabinoid Screen Urine Not Detected (Not Detect); Cocaine Screen Urine Not Detected (Not Detect); Fentanyl, urine Not Detected (Not Detect); Opiate Screen Urine Not Detected (Not Detect); Phencyclidine Screen Urine Not Detected (Not Detect)
--- NOTE | 2021-12-30 11:23 | ED.ARRPALP ---
HPI - Arrhythmia/Palpitations General Chief Complaint: Arrhythmia/Palpitations Stated Complaint: from SSS. afib Time Seen by Provider: 12/30/21 09:12 Source: patient and other (Physician certified physician assistant, Tian Bowens) Mode of arrival: wheelchair Limitations: no limitations History of Present Illness HPI narrative: 51-year-old male who came to the hospital today for elective bariatric lap sleeve gastrectomy surgery. The patient does have a history of paroxysmal atrial fibrillation and prior to the surgery states that he was very anxious. The patient was noted to have atrial fibrillation with ventricular rate of 160. Patient was given a beta-salud with improvement of his ventricular rate. He was then transferred to the emergency department for evaluation. Patient states that he has paroxysmal atrial fibrillation and states that the last time he was in atrial fibrillation was in 2019 when he required cardioversion. States the prior to the surgery he was very anxious the believes this is what may have caused him to go into atrial fibrillation. The patient is treated with Xarelto and metoprolol any states the did stop both of these medications prior to surgery. Patient's review of systems was negative, he denied being ill over the past several days, denied fever, chills, chest pain, shortness of breath, dyspnea exertion, lightheadedness or dizziness. Related Data Home Medications Medication Instructions Recorded Confirmed metoprolol succinate 100 mg 100 mg PO DAILY 01/26/21 12/30/21 tablet,extended release 24 hr rivaroxaban 20 mg tablet (Xarelto) 20 mg PO BEDTIME 01/26/21 12/30/21 meloxicam 15 mg tablet 15 mg PO DAILY 09/21/21 12/30/21 Previous Rx's Medication Instructions Recorded thiamine HCl (vitamin B1) 100 mg 100 mg PO DAILY #30 tabs 10/21/21 tablet fondaparinux 2.5 mg/0.5 mL 2.5 mg (0.5 mL) subcut Q24H #5 mL 12/20/21 subcutaneous solution syringe ondansetron HCl 4 mg tablet 4 mg PO Q12H nausea and vomiting 12/20/21 #20 tabs pantoprazole 40 mg tablet,delayed 40 mg PO DAILY #30 tabs 12/20/21 release sucralfate 100 mg/mL oral 10 ml PO BID #400 mL 12/20/21 suspension Allergies Allergy/AdvReac Type Severity Reaction Status Date / Time No Known Allergies Allergy Verified 12/30/21 06:19 Review of Systems Review of Systems: Yes all other systems are reviewed and are negative [facility] Past Medical History Medical History Atrial fibrillation COVID-19 vaccine series completed Elevated cholesterol GERD (gastroesophageal reflux disease) History of COVID-19 HTN (hypertension) On anticoagulant therapy On beta salud at home Sleep apnea Surgical History Hx of colonoscopy Hx of knee surgery Hx of tonsillectomy S/P ablation of atrial fibrillation Social History Social History Household Members: Family Household Members Other:: Mother Are you a primary insurance healthcare representative to a significant other at home: Yes (Helps take care of his mother) Do you presently have visiting nurse or other home services: No Alcohol intake: current Alcohol intake frequency: a few times a month Patient Tobacco Use Status: Never used Tobacco Second Hand Smoke Exposure: No Physical Exam Vital Signs: Vital Signs: Last Vital Signs Temp 98.3 F 12/30/21 09:22 Pulse 100 12/30/21 09:22 Resp 16 12/30/21 09:22 BP 103/75 12/30/21 09:22 Pulse Ox 98 12/30/21 09:22 O2 Del Method 12/30/21 09:22 BMI result Body Mass Index 35.9 Const: General: cooperative and no acute distress Orientation/consciousness: oriented to person and oriented to place Limitations: no limitations HEENT: Head: Yes normal to inspection, Yes normocephalic and Yes atraumatic Ears: external ears normal General nose exam: Normal external nose present Face and sinus: Yes normal facial exam Mouth: Normal oral and palatal mucosa present Throat: Yes posterior oropharynx normal Eyes: General: appearance normal, both eyes and all related structures Pupils: Equal, round and reactive pupils present Neck: Neck: Yes normal visual inspection, Yes no lymphadenopathy, Yes trachea midline and Yes supple Chest: Chest palpation & inspection: normal inspection of the chest and normal palpation of entire chest wall Resp: Effort & Inspection: normal respiratory effort and able to speak in complete sentences Auscultation: clear to auscultation bilaterally Cardio: Rate: regular rate Rhythm: abnormal rhythm irregularly irregular Heart sounds: S1 normal heart sound present, S2 normal heart sound present and no murmurs GI: Inspection: Yes normal to inspection Palpation (GI): Soft to palpation, nontender and no guarding Auscultation: normal bowel sounds : General: Yes no CVA tenderness Back/Spine/Pelvis: Back: no CVA tenderness Skin: General skin exam: no rashes or lesions noted Neuro: General: oriented to person and oriented to place Cranial nerves: Yes CN's II-XII intact bilaterally and Yes Equal, round and reactive pupils present Cognition (Neuro): normal cognition Motor exam (neuro): 5/5 motor strength present throughout Extrem: General: Yes normal to inspection Psych: Appearance: grossly normal Speech and movement: Normal speech and movement present Affect: normal affect Attitude: cooperative Thought process: Normal thought process present Thought content: Normal thought content present Course Course Course Narrative: 51-year-old male with a history of paroxysmal atrial tachycardia who was scheduled for elective bariatric surgery today but was found to be in atrial fibrillation with a rapid ventricular response prior to the procedure. He was given beta-blockers with improvement his rate and then sent to emergency department for evaluation. The patient's physical examination is consistent with him being in atrial fibrillation otherwise was unremarkable. Anesthesiology Resident, Dr. Muniz was consulted any did evaluate the patient. He was able to check the patient's previous records and states that the patient has EF on 10/03 was 40-45%. Given this finding, the patient will be set up for an outpatient echocardiogram tomorrow your doctor Muniz's office. He recommended against restarting the patient's Xarelto or starting any other anticoagulants at this time. He also recommended that the patient stop his meloxicam but continue taking his other medications. He will see the patient has a outpatient to try to medically clear him for bariatric surgery next week. Patient understood this discussion and plan and was discharged home. MDM - Arrhythmia/Palpitations Medical Records Attestation: I reviewed the patient's medical records. Lab Data Attestation: I reviewed the patient's lab results. Result diagrams: 12/30/21 09:53 12/30/21 09:53 Labs: Lab Results 12/30/21 12/30/21 12/30/21 Range/Units 09:53 09:53 09:53 WBC 7.8 (4.8-10.8) X10*3/uL RBC 5.23 (4.60-5.80) X10*6/uL Hgb 16.9 (14.0-18.0) g/dl Hct 49.6 (42.0-52.0) % MCV 94.8 (80.0-98.0) fL MCH 32.3 (27.0-33.0) pg MCHC 34.1 (31.0-36.0) g/dl RDW 12.7 (11.0-16.0) % Plt Count 271 D (160-400) X10*3/uL MPV 10.6 (9.4-12.4) fL Immature Gran % (Auto) 0.3 (0.0-0.4) % Neut % (Auto) 76.3 H (45-73) % Lymph % (Auto) 16.8 L (20-40) % [place] % (Auto) 5.1 (2-11) % Eos % (Auto) 1.0 (0-4) % Baso % (Auto) 0.5 (0-2) % Lymph # (Auto) 1.3 (1.2-4.9) X10*3/uL [place] # (Auto) 0.4 (0.1-1.2) X10*3/uL Eos # (Auto) 0.1 (0.0-0.4) X10*3/uL Baso # (Auto) 0.0 (0.0-0.2) X10*3/uL Abs Immat Gran (auto) 0.02 (0.00-0.03) X10*3/uL Absolute Neuts (auto) 6.0 (2.0-8.3) x10*3/uL Absolute Nucleated RBC 0.000 (0.0-0.012) X10*3/uL Nucleated RBC % (auto) 0.0 (0.0-0.2) /100WBC PT (10.0-13.1) SEC INR (0.9-1.1) APTT (26.0-36.4) SEC Sodium 138 (135-145) mmol/L Potassium 4.4 (3.3-5.1) mmol/L Chloride 101 (96-108) mmol/L Carbon Dioxide 27 (22-29) mmol/L Anion Gap 14 (12-20) BUN 10 (9-16) mg/dL Creatinine 0.95 (0.5-1.4) mg/dL Estim Creat Clear Calc 130.2 Estimated GFR > 60 Random Glucose 111 (60-115) mg/dL Calcium 9.9 (8.4-10.2) mg/dL Magnesium 2.4 (1.6-2.6) mg/dL Total Bilirubin 0.8 (0.0-1.0) mg/dL Direct Bilirubin 0.3 (0.0-0.5) mg/dL AST 27 (5-37) U/L ALT 20 (0-40) U/L Alkaline Phosphatase 73 (39-117) U/L Troponin I High Sens 5.6 (<3.5-35.0) ng/L B-Natriuretic Peptide (<100) pg/mL Total Protein 7.3 (6.5-8.0) g/dL Albumin 4.7 (3.5-5.0) g/dL Urine Color Urine Appearance Urine pH (5.0-9.0) Ur Specific [place] (1.005-1.025) Urine Protein (Neg-Trace) mg/dL Urine Glucose (UA) (Negative) mg/dL Urine Ketones (Negative) mg/dL Urine Blood (Negative) Urine Nitrite (Negative) Ur Leukocyte Esterase (Negative) Urine Opiates Screen (Not Detect) Urine Fentanyl Screen (Not Detect) Ur Barbiturates Screen (Not Detect) Ur Phencyclidine Scrn (Not Detect) Ur Amphetamines Screen (Not Detect) U Benzodiazepines Scrn (Not Detect) Urine Cocaine Screen (Not Detect) U Marijuana (THC) Screen (Not Detect) Ethyl Alcohol mg/dL COVID-19 (SHIVA) (Negative) COVID-19 Clin Com 12/30/21 12/30/21 12/30/21 Range/Units 09:53 09:53 09:53 WBC (4.8-10.8) X10*3/uL RBC (4.60-5.80) X10*6/uL Hgb (14.0-18.0) g/dl Hct (42.0-52.0) % MCV (80.0-98.0) fL MCH (27.0-33.0) pg MCHC (31.0-36.0) g/dl RDW (11.0-16.0) % Plt Count (160-400) X10*3/uL MPV (9.4-12.4) fL Immature Gran % (Auto) (0.0-0.4) % Neut % (Auto) (45-73) % Lymph % (Auto) (20-40) % [place] % (Auto) (2-11) % Eos % (Auto) (0-4) % Baso % (Auto) (0-2) % Lymph # (Auto) (1.2-4.9) X10*3/uL [place] # (Auto) (0.1-1.2) X10*3/uL Eos # (Auto) (0.0-0.4) X10*3/uL Baso # (Auto) (0.0-0.2) X10*3/uL Abs Immat Gran (auto) (0.00-0.03) X10*3/uL Absolute Neuts (auto) (2.0-8.3) x10*3/uL Absolute Nucleated RBC (0.0-0.012) X10*3/uL Nucleated RBC % (auto) (0.0-0.2) /100WBC PT 13.7 H (10.0-13.1) SEC INR 1.2 H (0.9-1.1) APTT 41.6 H (26.0-36.4) SEC Sodium (135-145) mmol/L Potassium (3.3-5.1) mmol/L Chloride (96-108) mmol/L Carbon Dioxide (22-29) mmol/L Anion Gap (12-20) BUN (9-16) mg/dL Creatinine (0.5-1.4) mg/dL Estim Creat Clear Calc Estimated GFR Random Glucose (60-115) mg/dL Calcium (8.4-10.2) mg/dL Magnesium (1.6-2.6) mg/dL Total Bilirubin (0.0-1.0) mg/dL Direct Bilirubin (0.0-0.5) mg/dL AST (5-37) U/L ALT (0-40) U/L Alkaline Phosphatase (39-117) U/L Troponin I High Sens (<3.5-35.0) ng/L B-Natriuretic Peptide 22 (<100) pg/mL Total Protein (6.5-8.0) g/dL Albumin (3.5-5.0) g/dL Urine Color Urine Appearance Urine pH (5.0-9.0) Ur Specific [place] (1.005-1.025) Urine Protein (Neg-Trace) mg/dL Urine Glucose (UA) (Negative) mg/dL Urine Ketones (Negative) mg/dL Urine Blood (Negative) Urine Nitrite (Negative) Ur Leukocyte Esterase (Negative) Urine Opiates Screen (Not Detect) Urine Fentanyl Screen (Not Detect) Ur Barbiturates Screen (Not Detect) Ur Phencyclidine Scrn (Not Detect) Ur Amphetamines Screen (Not Detect) U Benzodiazepines Scrn (Not Detect) Urine Cocaine Screen (Not Detect) U Marijuana (THC) Screen (Not Detect) Ethyl Alcohol < 10 mg/dL COVID-19 ([facility]IVA) (Negative) COVID-19 Clin Com 12/30/21 12/30/21 12/30/21 Range/Units 10:35 10:35 10:35 WBC (4.8-10.8) X10*3/uL RBC (4.60-5.80) X10*6/uL Hgb (14.0-18.0) g/dl Hct (42.0-52.0) % MCV (80.0-98.0) fL MCH (27.0-33.0) pg MCHC (31.0-36.0) g/dl RDW (11.0-16.0) % Plt Count (160-400) X10*3/uL MPV (9.4-12.4) fL Immature Gran % (Auto) (0.0-0.4) % Neut % (Auto) (45-73) % Lymph % (Auto) (20-40) % [place] % (Auto) (2-11) % Eos % (Auto) (0-4) % Baso % (Auto) (0-2) % Lymph # (Auto) (1.2-4.9) X10*3/uL [place] # (Auto) (0.1-1.2) X10*3/uL Eos # (Auto) (0.0-0.4) X10*3/uL Baso # (Auto) (0.0-0.2) X10*3/uL Abs Immat Gran (auto) (0.00-0.03) X10*3/uL Absolute Neuts (auto) (2.0-8.3) x10*3/uL Absolute Nucleated RBC (0.0-0.012) X10*3/uL Nucleated RBC % (auto) (0.0-0.2) /100WBC PT (10.0-13.1) SEC INR (0.9-1.1) APTT (26.0-36.4) SEC Sodium (135-145) mmol/L Potassium (3.3-5.1) mmol/L Chloride (96-108) mmol/L Carbon Dioxide (22-29) mmol/L Anion Gap (12-20) BUN (9-16) mg/dL Creatinine (0.5-1.4) mg/dL Estim Creat Clear Calc Estimated GFR Random Glucose (60-115) mg/dL Calcium (8.4-10.2) mg/dL Magnesium (1.6-2.6) mg/dL Total Bilirubin (0.0-1.0) mg/dL Direct Bilirubin (0.0-0.5) mg/dL AST (5-37) U/L ALT (0-40) U/L Alkaline Phosphatase (39-117) U/L Troponin I High Sens (<3.5-35.0) ng/L B-Natriuretic Peptide (<100) pg/mL Total Protein (6.5-8.0) g/dL Albumin (3.5-5.0) g/dL Urine Color Yellow Urine Appearance Clear Urine pH 5.5 (5.0-9.0) Ur Specific [place] 1.010 (1.005-1.025) Urine Protein Negative (Neg-Trace) mg/dL Urine Glucose (UA) Negative (Negative) mg/dL Urine Ketones 15 (Negative) mg/dL Urine Blood Negative (Negative) Urine Nitrite Negative (Negative) Ur Leukocyte Esterase Negative (Negative) Urine Opiates Screen Not Detected (Not Detect) Urine Fentanyl Screen Not Detected (Not Detect) Ur Barbiturates Screen Not Detected (Not Detect) Ur Phencyclidine Scrn Not Detected (Not Detect) Ur Amphetamines Screen Not Detected (Not Detect) U Benzodiazepines Scrn Not Detected (Not Detect) Urine Cocaine Screen Not Detected (Not Detect) U Marijuana (THC) Screen Not Detected (Not Detect) Ethyl Alcohol mg/dL COVID-19 (SHIVA) Negative (Negative) COVID-19 Clin Com See Note ECG Data Attestation: I personally reviewed and interpreted this ECG as follows: Interpretation: 0944: Atrial fibrillation with a ventricular rate of 88, normal QRS and QTC intervals, no ST segment elevation or depression, inverted T-wave in lead 3, no PVCs Discharge Plan Discharge Clinical Impression: Atrial fibrillation Patient Disposition: Home, Self-Care Instructions: A-fib (Atrial Fibrillation) (ED) Additional Instructions: Stop taking your Xarelto (rivaroxaban). Restart your other medications except for the meloxicam. will arrange an echocardiogram for you tomorrow. Follow-up with Dr. Muniz in 1- 2 days. Please return to the emergency department if your symptoms get worse or if you develop any symptoms that are concerning to you. Prescriptions: No Action thiamine HCl (vitamin B1) 100 mg tablet 100 mg PO DAILY Qty: 30 2RF metoprolol succinate 100 mg tablet extended release 24 hr 100 mg PO DAILY Xarelto 20 mg tablet 20 mg PO BEDTIME meloxicam 15 mg tablet 15 mg PO DAILY pantoprazole 40 mg tablet,delayed release (DR/EC) 40 mg PO DAILY Qty: 30 2RF sucralfate 100 mg/mL suspension 10 ml PO BID Qty: 400 2RF ondansetron HCl 4 mg tablet 4 mg PO Q12H Qty: 20 0RF fondaparinux 2.5 mg/0.5 mL syringe 2.5 mg subcut Q24H Qty: 5 1RF Referrals: Nikos Muniz MD [Physician] - 2 days (Paroxysmally atrial fibrillation, needs evaluation for medical clearance for bariatric surgery) Interventions: ED Discharge Assessment Last Done: 12/30/21 11:43 Discharge Date/Time: 12/30/21 11:47
[2021-12-30 12:11] LABS: Ethanol < 10 mg/dL
== END 2021-12-30 11:47 | disposition home or self-care (01) ==
PROVIDERS: Physician Assistant; Emergency Provider Emergency Medicine Emergency Medical Services; PCP Internal Medicine
DX: I48.91 Unspecified atrial fibrillation (principal); F41.9 Anxiety disorder, unspecified; R06.02 Shortness of breath; Z20.822 Contact with and (suspected) exposure to COVID-19; Z98.84 Bariatric surgery status; Z79.899 Other long term (current) drug therapy
CPT/HCPCS: 36415; 71045; 80048; 80076; 80307; 81003; 82077; 83735; 83880; 84484; 85025; 85610; 85730; 87635; 93005; 99284

== ENCOUNTER → 2021-12-31 14:21 | Outpatient (REF) | payer OTHER, SELFPAY ==
--- NOTE | 2021-12-31 14:26 | CA_ITS ---
Transthoracic Echocardiogram Patient (Last, First, Middle): Omar Goldman M Gender: Male Date of : 1970 Age: 51 Procedure Date: 12/31/2021 Procedure Type: Transthoracic Echocardiogram Location: OP Height: 187.96 cm Weight: 127.01 kg BSA: 2.51 m2 Heart Rate: bpm BP: 130 / 70 mmHg Sql Engineer: TO Referring MD: Nikos Muniz MD Egg And Spice Mixer: Nikos Muniz MD Symptoms: I48.91 - Unspecified atrial fibrillation Study Quality: Fair/Contrast ECG Rhythm: Atrial Fibrillation Conclusions: - 1. Moderate LV systolic dysfunction with LVEF of 35-40% 2. Biatrial enlargement, left atrium moderately dilated 3. Normal cardiac valvular Doppler 4. No gross pericardial effusion Findings Procedure Information Contrast agent, definity, is being given per protocol without apparent complications. Left Ventricle Normal left ventricular cavity size. There is normal left ventricular wall thickness. The left ventricular systolic function is moderately decreased. The visually estimated ejection fraction is between 35-40%. There is moderate global hypokinesis. Diastolic function is indeterminate on the basis of available data. Right Ventricle Mildly increased right ventricular cavity size. There is normal right ventricular systolic function. Atria The left atrium is moderately dilated. There is no evidence of interatrial shunt. The right atrium is mildly dilated. Aortic Valve Normal aortic valve structure and function. There is no aortic valve stenosis. There is no aortic valve regurgitation. Mitral Valve Normal mitral valve structure and function. There is trace mitral valve regurgitation. There is no mitral valve stenosis. Pulmonic Valve The pulmonic valve is likely normal. Tricuspid Valve Normal tricuspid valve structure. Tricuspid regurgitation envelope is inadequate for calculation of right ventricular systolic pressure. Normal right atrial pressure. Great Vessels All visible segments of the aorta are normal in size. The pulmonary artery was not well visualized. Venous The inferior vena cava is normal in size and collapses greater than 50% with inspiration. Pericardium/Pleural There is no evidence of pericardial effusion. Prior Study Comparison No prior study available for comparison. Measurements 2D Linear Measurements LVOT Diam: 2.40 3.0+(-)1.3 cm 2D Systolic Function EF 4C: 32.00 >55% EF 2C: 43.70 >55% EF BiP: 38.60 >55% Mitral Valve MV Pk E: 0.55 MV Decel Time: 174.00 E'Lateral: 17.80 E'Medial: 8.92 E/E' Med: 6.20 E/E' Lat: 3.10 PHT: 51.00 MVA PHT: 4.31 Decel [place]: 3.17 Aortic Valve AoV Pk Addy: 0.86 AoV Mn Addy: 0.64 AoV VTI: 0.16 AoV Pk Grad: 3.00 Aov Mn Grad: 2.00 SANDIP Cont.VTI: 3.71 LVOT LVOT Pk Addy: 0.77 LVOT Mn Addy: 0.54 LVOT VTI: 0.13 LVOT Pk Grad: 2.00 LVOT Mn Grad: 1.00 LVOT Diam: 2.40 LVOT Area: 4.52 Diastolic Function MV Pk E: 0.55 E'Medial: 8.92 E/E' Med: 6.20 E' Laterial: 17.80 E/E' Lat: 3.10 Right Ventricle TAPSE (mm): 18.60 TVS' Addy: 9.14 Tricuspid Valve RA Press: 3.00 Great Vessels Aorta Sinus of Valsalva: 4.75 2.0-3.5 cm Ao Asc: 3.70 2.1-3.4 cm Updated in Other Vendor System with Status of Final Nikos Muniz MD electronically signed on 01/01/2022 11:36:23 AM with status of Final
== END ==
LOC: HO.CARD 14:21
PROVIDERS: PCP Internal Medicine; Visit Provider Internal Medicine Cardiovascular Disease
DX: I48.91 Unspecified atrial fibrillation (principal)
CPT/HCPCS: 93306; Q9957

== ENCOUNTER → 2022-01-21 07:21 | Outpatient (REF) | payer OTHER, SELFPAY ==
--- NOTE | ~2022-01-21 | NM_ITS ---
Myocardial perfusion study Indication: Atrial fibrillation to evaluate for myocardial ischemia Technique: The patient was brought in for a Lexiscan perfusion study on 01/21/2022. Patient performed low-level exercise and was injected 0.4 mg of Lexiscan intravenously. Within a minute of injection, 35 mCi of sestamibi was given intravenously. Images were obtained using the SPECT gamma camera interlaced with the gating device. Images were obtained in supine position. Resting perfusion study was performed on 01/25/2022. Patient was administered 30 mCi of sestamibi intravenously at rest. Images were then obtained in supine position. Images obtained with and without CT attenuation. Total DLP 124 mGy-cm. Images were processed with the software and compared side to side in short axis, horizontal long axis and vertical long axis views. Findings: The stress perfusion study showed non attenuated images show mildly to moderately reduced uptake in the inferior wall of the LV myocardium. Remainder of the LV myocardium is normally perfused. Attenuation corrected images show mildly thickened apex of the LV myocardium.. The gated study shows mildly reduced LV systolic function with calculated LVEF of 47%. LV cavity is mildly to moderately dilated size. The gated study shows normal wall thickening and contraction of segments. Resting study shows no change in perfusion pattern compared to stress perfusion study. Gating at rest reveals normal systolic wall motion with ejection fraction at 48%. The findings are consistent with no clear reversible ischemia.. NM/NM skye perf SPECT rest & str Impression: 1. Myocardial perfusion imaging study shows normal myocardial perfusion 2. Gated LVEF is 47% 3. Transient ischemic dilatation not present but LV cavity is dilated EKG is nondiagnostic for ischemia
--- NOTE | 2022-01-21 07:26 | CA_ITS ---
Acquisition Time: 2022-01-21 08:35:21 Total Exercise Time: 00:02:00 Test Indications: I48.91 - Unspecified atrial fib Medications: Protocol: LEXISCAN Max HR: 150 BPM 88% of Pred: 169 BPM Max BP: 116/092 mmHG Max Work Load: 1.0 METS Pharmacological stress test with Lexiscan injection, while sitting and kicking his legs, with report of shortness of breath and chest tightnesst, with Afib RVR, without other arrythmia, with normotensive response to injection, with nondiagnostic EKG for ischemia. In recovery he was treated with Aminophylline 75mg IVP to reverse lexiscan with resolution of symptoms. Nuclear images pending. Test reviewed with Dr Muniz. Referred By: Nikos Muniz Overread By: VERONICA CATHERINE
== END ==
LOC: HO.CARD 07:21
PROVIDERS: Visit Provider Internal Medicine Cardiovascular Disease
DX: I48.91 Unspecified atrial fibrillation (principal); G47.30 Sleep apnea, unspecified; E66.9 Obesity, unspecified
CPT/HCPCS: 78452; 93017; A9500; J0280; J2785

== ENCOUNTER 2022-02-08 06:12 | Day surgery (SDC) | payer OTHER, SELFPAY ==
[2022-02-04 08:07] LABS: MANUAL DIFF FLAG NO
[2022-02-04 08:54] LABS: Basophils Absolute Auto 0.1 X10*3/uL (0.0-0.2); Basophils Percent Auto 0.8 % (0-2); Eosinophils Absolute Auto 0.6 X10*3/uL (0.0-0.4); Eosinophils Percent Auto 9.2 % (0-4); Hematocrit 47.7 % (42.0-52.0); Imm Gran Abs Auto 0.04 X10*3/uL (0.00-0.03); Imm Gran Pct Auto 0.6 % (0.0-0.4); Mean Corpuscular HGB Conc 33.5 g/dl (31.0-36.0); Mean Corpuscular Hemoglobin 32.1 pg (27.0-33.0); Mean Corpuscular Volume 95.8 fL (80.0-98.0); Mean Platelet Volume 9.8 fL (9.4-12.4); Monocytes Absolute Auto 0.7 X10*3/uL (0.1-1.2); Monocytes Percent Auto 11.1 % (2-11); Neutrophils Absolute Auto 2.9 x10*3/uL (2.0-8.3); Neutrophils Percent Auto 46.3 % (45-73); Platelet Count 359 X10*3/uL (160-400); Red Blood Count 4.98 X10*6/uL (4.60-5.80); Red Cell Distribution Width 13.2 % (11.0-16.0); White Blood Count 6.3 X10*3/uL (4.8-10.8)
[2022-02-04 08:58] LABS: INTERNATIONAL NORM RATIO 1.1 (0.9-1.1)
[2022-02-04 09:01] LABS: Partial Thromboplastin Time 38.9 SEC (26.0-36.4)
[2022-02-04 09:25] LABS: Alanine Aminotransferase 20 U/L (0-40); Albumin Level 4.7 g/dL (3.5-5.0); Alkaline Phosphatase 78 U/L (39-117); Anion Gap 15 (12-20); Aspartate Amino Transferase 26 U/L (5-37); Bilirubin Total 1.1 mg/dL (0.0-1.0); Blood Urea Nitrogen 17 mg/dL (9-16); Calcium 10.1 mg/dL (8.4-10.2); Carbon Dioxide 26 mmol/L (22-29); Chloride 103 mmol/L (96-108); Estimated Glomerular Filt Rate > 60; Glucose Random 94 mg/dL (60-115); Potassium 4.9 mmol/L (3.3-5.1); Sodium 139 mmol/L (135-145); Total Protein 7.2 g/dL (6.5-8.0)
--- NOTE | 2022-02-04 10:05 | HO.ANESPROP2 ---
Documented by User: Leonor Haro NP 02/04/22 10:20 HPI - Anesthesia Eval Consult details Narrative: 51yo M for Gastrectomy Sleeve,EGD,poss diaphragmatic hernia,poss ventral hernia,poss open, Previously DOS d/t recurrance of afib and med noncompliance - per CRISTINA RN, patient has been taking metorprolol as rx'd Cardiac cleared Xarelto for afib - bridging with arixtra PMFSH Active Problems Active Problems: All Active Problems (Updated 01/26/22 @ 15:48 by Nikos Muniz MD) Cardiomyopathy (Acute) Encounter for monitoring bridging anticoagulation therapy (Acute) Morbid obesity (Acute) Sleep apnea with use of continuous positive airway pressure (CPAP) (Acute) DJD (degenerative joint disease) (Acute) Depressive disorder (Acute) Obesity (Acute) BMI 36.0-36.9,adult (Acute) GERD (gastroesophageal reflux disease) (Acute) Atrial fibrillation (Acute) Past Medical History Medical History Atrial fibrillation COVID-19 vaccine series completed Elevated cholesterol GERD (gastroesophageal reflux disease) History of COVID-19 HTN (hypertension) On anticoagulant therapy On beta salud at home Sleep apnea Surgical History Surgical History Hx of colonoscopy Hx of knee surgery Hx of tonsillectomy S/P ablation of atrial fibrillation History of Problems with Anesthesia: No Social History Social History Household Members: Family Household Members Other:: Mother Are you a primary animal caretaker to a significant other at home: Yes (Helps take care of his mother) Do you presently have visiting nurse or other home services: No Alcohol intake: current Alcohol intake frequency: a few times a month Patient Tobacco Use Status: Never used Tobacco Second Hand Smoke Exposure: No Use of substances other than those prescribed or required for medical reasons: No Are you DNR?: No Advance Directives: No Advance Directives Information Provided: Yes Meds Allergies Allergy/AdvReac Type Severity Reaction Status Date / Time No Known Allergies Allergy Verified 01/26/22 08:54 Home Medications Medication Instructions Recorded Confirmed Last Taken Type metoprolol succinate 100 mg 100 mg PO DAILY 01/26/21 02/01/22 02/08/22 History tablet,extended release 24 hr meloxicam 15 mg tablet 15 mg PO DAILY 09/21/21 02/01/22 12/21/21 History fondaparinux 2.5 mg/0.5 mL 2.5 mg subcut Q24H 01/26/22 02/01/22 02/06/22 History subcutaneous solution syringe rivaroxaban 20 mg tablet (Xarelto) 1 tab PO DAILY 02/08/22 02/08/22 01/30/22 History Exam Exam Date and Time: February 04, 2022 1005 Pertinent Lab Results Pertinent Lab Results: Laboratory Tests 02/04/22 02/04/22 02/04/22 08:00 08:00 08:00 WBC 6.3 RBC 4.98 Hgb 16.0 Hct 47.7 MCV 95.8 MCH 32.1 MCHC 33.5 RDW 13.2 Plt Count 359 D MPV 9.8 Immature Gran % (Auto) 0.6 H Neut % (Auto) 46.3 Lymph % (Auto) 32.0 [place] % (Auto) 11.1 H Eos % (Auto) 9.2 H Baso % (Auto) 0.8 Lymph # (Auto) 2.0 [place] # (Auto) 0.7 Eos # (Auto) 0.6 H Baso # (Auto) 0.1 Abs Immat Gran (auto) 0.04 H Absolute Neuts (auto) 2.9 Absolute Nucleated RBC 0.000 Nucleated RBC % (auto) 0.0 PT 13.0 INR 1.1 APTT 38.9 H Sodium 139 Potassium 4.9 Chloride 103 Carbon Dioxide 26 Anion Gap 15 BUN 17 H Creatinine 0.96 Estim Creat Clear Calc TNP Estimated GFR > 60 Random Glucose 94 Calcium 10.1 Total Bilirubin 1.1 H AST 26 ALT 20 Alkaline Phosphatase 78 Total Protein 7.2 Albumin 4.7 Blood Type Antibody Screen 02/04/22 08:00 WBC RBC Hgb Hct MCV MCH MCHC RDW Plt Count MPV Immature Gran % (Auto) Neut % (Auto) Lymph % (Auto) [place] % (Auto) Eos % (Auto) Baso % (Auto) Lymph # (Auto) [place] # (Auto) Eos # (Auto) Baso # (Auto) Abs Immat Gran (auto) Absolute Neuts (auto) Absolute Nucleated RBC Nucleated RBC % (auto) PT INR APTT Sodium Potassium Chloride Carbon Dioxide Anion Gap BUN Creatinine Estim Creat Clear Calc Estimated GFR Random Glucose Calcium Total Bilirubin AST ALT Alkaline Phosphatase Total Protein Albumin Blood Type Cancelled Antibody Screen Cancelled Narrative Narrative: EKG 12/2021 Vent. Rate : 069 BPM ? ? Atrial Rate : 069 BPM ?? P-R Int : 184 ms? QRS Dur : 094 ms ? ? QT Int : 410 ms ? ? ? P-R-T Axes : 067 029 050 degrees ?? QTc Int : 439 ms ? Normal sinus rhythm Normal ECG No previous ECGs available ECHO 12/2021 Conclusions: - 1. Moderate LV systolic dysfunction with LVEF of 35-40%? 2. Biatrial enlargement, left atrium moderately dilated? 3. Normal cardiac valvular Doppler ? 4. No gross pericardial effusion ? ? ? NM skye perf SPECT rest & str 01/2022 Impression: ? 1.? Myocardial perfusion imaging study shows normal myocardial perfusion 2.? Gated LVEF is 47% 3. Transient ischemic dilatation not present but LV cavity is dilated ? EKG is nondiagnostic for ischemia Assessment and Plan Assessment Anesthesia Assessment: Chart Reviewed Final Anesthetic Review History of Problems with Anesthesia: No Documented by User: Yenni Figueredo MD 02/08/22 07:36 [facility] Past Medical History Medical History Atrial fibrillation COVID-19 vaccine series completed Elevated cholesterol GERD (gastroesophageal reflux disease) History of COVID-19 HTN (hypertension) On anticoagulant therapy On beta salud at home Sleep apnea Family History Family history of problems with anesthesia: No Surgical History Surgical History Hx of colonoscopy Hx of knee surgery Hx of tonsillectomy S/P ablation of atrial fibrillation Social History Social History Household Members: Family Household Members Other:: Mother Are you a primary animal caretaker to a significant other at home: Yes (Helps take care of his mother) Do you presently have visiting nurse or other home services: No Alcohol intake: current Alcohol intake frequency: a few times a month Patient Tobacco Use Status: Never used Tobacco Second Hand Smoke Exposure: No Use of substances other than those prescribed or required for medical reasons: No Are you DNR?: No Advance Directives: No Advance Directives Information Provided: Yes Meds Allergies Allergy/AdvReac Type Severity Reaction Status Date / Time No Known Allergies Allergy Verified 01/26/22 08:54 Home Medications Medication Instructions Recorded Confirmed Last Taken Type metoprolol succinate 100 mg 100 mg PO DAILY 01/26/21 02/01/22 02/08/22 History tablet,extended release 24 hr meloxicam 15 mg tablet 15 mg PO DAILY 09/21/21 02/01/22 12/21/21 History fondaparinux 2.5 mg/0.5 mL 2.5 mg subcut Q24H 01/26/22 02/01/22 02/06/22 History subcutaneous solution syringe rivaroxaban 20 mg tablet (Xarelto) 1 tab PO DAILY 02/08/22 02/08/22 01/30/22 History Exam Height,Weight and Vital Signs: Height 6 ft 2 in Weight 125.645 kg Vital Signs Temp Pulse Resp BP Pulse Ox O2 Del Method 02/08/22 07:09 97.0 F 98 18 121/80 99 Room Air Pertinent Lab Results Pertinent Lab Results: Laboratory Tests 02/04/22 02/04/22 02/04/22 08:00 08:00 08:00 WBC 6.3 RBC 4.98 Hgb 16.0 Hct 47.7 MCV 95.8 MCH 32.1 MCHC 33.5 RDW 13.2 Plt Count 359 D MPV 9.8 Immature Gran % (Auto) 0.6 H Neut % (Auto) 46.3 Lymph % (Auto) 32.0 [place] % (Auto) 11.1 H Eos % (Auto) 9.2 H Baso % (Auto) 0.8 Lymph # (Auto) 2.0 [place] # (Auto) 0.7 Eos # (Auto) 0.6 H Baso # (Auto) 0.1 Abs Immat Gran (auto) 0.04 H Absolute Neuts (auto) 2.9 Absolute Nucleated RBC 0.000 Nucleated RBC % (auto) 0.0 PT 13.0 INR 1.1 APTT 38.9 H Sodium 139 Potassium 4.9 Chloride 103 Carbon Dioxide 26 Anion Gap 15 BUN 17 H Creatinine 0.96 Estim Creat Clear Calc TNP Estimated GFR > 60 Random Glucose 94 Calcium 10.1 Total Bilirubin 1.1 H AST 26 ALT 20 Alkaline Phosphatase 78 Total Protein 7.2 Albumin 4.7 Blood Type Antibody Screen 02/04/22 08:00 WBC RBC Hgb Hct MCV MCH MCHC RDW Plt Count MPV Immature Gran % (Auto) Neut % (Auto) Lymph % (Auto) [place] % (Auto) Eos % (Auto) Baso % (Auto) Lymph # (Auto) [place] # (Auto) Eos # (Auto) Baso # (Auto) Abs Immat Gran (auto) Absolute Neuts (auto) Absolute Nucleated RBC Nucleated RBC % (auto) PT INR APTT Sodium Potassium Chloride Carbon Dioxide Anion Gap BUN Creatinine Estim Creat Clear Calc Estimated GFR Random Glucose Calcium Total Bilirubin AST ALT Alkaline Phosphatase Total Protein Albumin Blood Type Cancelled Antibody Screen Cancelled Laboratory Results - last 24 hr 02/08/22 06:50 COVID-19 ([facility]) Negative COVID-19 Clin Com See Note Airway Mallampati Class: II TM Dist: >3cm Neck ROM: Full Loose/Missing/Broken Teeth: No (Denies broken, loose, missing teeth) Heart: ? irregular Lungs: CTAB Assessment and Plan Assessment Anesthesia Assessment: Anesthesia Plan Discussed Final Anesthetic Review Family History of Problems with Anesthesia: No NPO: Yes ASA Class: III Final Preanesthetic Review: No Changes in Pt Med Stat, Meds/Allgs Chart Reviewed, Consent Obtained/Reviewed and Anes Risks/Benef Reviewed Patient Risk: Intermediate Procedure Risk: Intermediate Assessment/Block/Sedation in SS: Assess/Block/Sedation-SS Anesthetic Plan Anesthetic Plan: GA Disposition: Standard PACU and Inp. Admit - Standard Bed
--- NOTE | 2022-02-05 14:05 | MHC.SHP ---
Pre-Procedural Eval Section A Date of Service: 02/05/22 The patient is an INPATIENT: No The History & Physical has been completed within 30 days and I have reviewed it.: Yes Section B Chief Complaint: Obesity, unspecified Relevant Family History (Specify if Yes): No Relevant Social History: None Present Medications: None Medical History: No relevant PMH History of Previous Operations: No relevant previous surgery Allergies: Allergies Allergy/AdvReac Type Severity Reaction Status Date / Time No Known Allergies Allergy Verified 01/26/22 08:54 Review of Systems Sugical H&P ROS: Negative: Constitution, Cardiovascular, Respiratory, Neurological, Psychiatric, Hem-Onc, Allergic/Immunologic, Gastrointestinal, Genitourinary, Musculoskeletal, Integumentary, Endocrine and Eyes/Ears/Nose/Throat Exam Surgical H&P Exam: Normal: HEENT, Normal: Heart, Normal: Lungs, Normal: Extremities, Normal: Abdomen, Normal: Skin and Normal: Neurological Plan Diagnosis/Plan: Unchanged I have reviewed the history and physical and performed a pertinent physical examination on my patient. No changes have occurred unless specified. Time Spent With Patient Time: Total time managing care of this patient today ____ minutes.
[2022-02-08] VITALS (19 sets, daily range): BP systolic 107–135; BP diastolic 67–94; PULSE 59–111; RESP 16–22; TEMP 36.1–36.4; O2SAT 96–100; BMI 35.5
[2022-02-08 07:26] LABS: COVID-19 Test Negative (Negative); IDNOW Serial# 55D5AD1C
--- NOTE | 2022-02-08 07:34 | PM.OP ---
Brief Operative Note Date of Service: 02/08/22 Pre-op diagnosis: Severe obesity with comorbidities (see below) Post-op diagnosis: same Procedure: INITIAL PATIENT BMI ON PRESENTATION AT OUR OFFICE: 41.6 kg/m2 LAST BMI BEFORE SURGERY: 36.7 kg/m2 COMORBIDITIES: sleep apnea on CPAP, atrial fibrillation, GERD, DJD, liver fibrosis ?The patient presented to the Weight Management Program with significant obesity that was negatively impacting the patient's comorbidities as listed above.? The program is a phased program with a special focus on preoperative medical weight management to promote substantial weight loss and prepare the patients for the second phase of the program: bariatric surgery. The patient participated in an intensive weekly lifestyle ?intervention and exercise program during which the patient ?has lost between the initial office visit and the last preoperative visit 41.8 lbs, or 12.88% of initial actual body weight. It was deemed appropriate for the patient to now have bariatric surgery. In light of the current Covid-19 pandemic and the well documented strong association of obesity and increased risk of worse outcomes if infected with Covid-19 (REFERENCES:https://pubmed.ncbi.nlm.nih.gov/43854590/,?https://pubmed.ncbi.nlm.nih.gov/70394306/), any delay in undergoing bariatric surgery may lead to the patient's worsening health condition and increased?risk of more severe Covid-19 disease if infected. In addition a recent?study from [facility] published in [facility] on 02/08/2021 ([email or web address]) found that, among patients with obesity, substantial weight loss achieved with surgery was associated with improved outcomes of COVID-19 infection. The findings suggest that obesity can be a modifiable risk factor for the severity of COVID-19 infection. In addition, the patient met the BMI-criteria for bariatric surgery based on the BMI on initial presentation. The patient should not be penalized for achieving such weight loss because ?it is not sustainable long-term without surgical intervention and it was achieved in preparation for bariatric surgery ?under my direction and based on my published research ([email or web address]).pdf and?https://www.soard.org/article/[email or web address](92)15413-X/pdf) ?that a 10% preoperative weight loss improves long-term weight loss after surgery and reduces perioperative complications.? Insurance carriers such as [facility] have endorsed my recommendations ?and have included in their policies criteria to include a 10% preoperative weight loss requirement. PROCEDURE: Esophago-gastroscopy, laparoscopic repair of incarcerated diaphragmatic hernia, laparoscopic lysis of adhesions, laparoscopic sleeve gastrectomy and laparoscopic gastropexy INDICATIONS: This is a 51 year-old male who was electively scheduled for laparoscopic, possibly open sleeve gastrectomy. The risks and complications of the procedure were discussed with the patient in advance, particularly the possibility of ; pulmonary embolism; staple line leak; bleeding; GERD; cardiac, pulmonary, or renal complications; as well as long-term problems such as insufficient weight loss, vitamin deficiency, strictures, or ulcers. The patient understood all the risks, and was in agreement to proceed with surgery. DESCRIPTION OF PROCEDURE: After informed consent was obtained from the patient, the patient was given preoperative antibiotics, and was transferred to the operating room. After successful induction of general anesthesia, pneumatic compression devices were placed on both lower extremities. An upper endoscopy was performed next. The oropharynx and esophagus appeared to be within normal limits. There was a diaphragmatic hernia present of moderate size consistent with the findings of the preoperative upper GI. The stomach was entered. Then after all fluid and air were suctioned and the stomach was fully decompressed, the scope was withdrawn and secured in the mid esophagus. The patient was then prepped and draped in the usual sterile manner, and abdominal access was established at the right upper quadrant with the Francesca technique. A 12 mm blunt port was inserted, and the abdomen was insufflated with CO2 to a pressure of 15 mmHg. Under direct visualization, additional ports were placed, specifically two 5 mm Versi-step ports to the left upper quadrant, and a 5 mm Versi-Step port to the right upper quadrant. 1% lidocaine plain was used to infiltrate all port sites as well as all fascia defects. Using the EndoClose suture passer device, I placed a #1 Polysorb tie across the falciform ligament in order to retract it up against the abdominal wall and prevent injury of the ligament with our instruments during the procedure. Following that, the patient was placed in a steep reverse Trendelenburg position. An additional 5 mm port was placed to the right flank for the Mediflex retractor that was used to retract the left lobe of the liver. The gastro-esophageal fat pad was opened with the ultrasonic device (Thunderbeat, Olympus) and the anterior esophagus and hiatus were exposed. The angle of His was opened with the ultrasonic device the fundus of the stomach from any diaphragmatic and splenic attachments. I then opened the gastrocolic ligament between the transverse colon and the greater curvature of the stomach with the ultrasonic device to enter the lesser sac and facilitate the ligation of the short gastric vessels. I started at a mid-point along the greater curvature and using the Thunderbeat, all short gastric vessels were divided all the way to the angle of His until the left enedina was completely dissected at its entirety. I then divided the gastro-colic ligament distally to a distance of about 3-4 cm proximal to the pylorus. There were extensive congenital adhesions between the pancreas and posterior gastric wall. Those were lysed completely with the ultrasonic device. Adhesiolysis took approximately 45 min to complete. The stomach was then divided transversely with one Endo CAL-45 purple, three CAL-45 orange loads and three CAL-60 articulating orange loads using the AEON stapler and loads. Every effort was made that the gastric sleeve had a tubular shape and an even caliber throughout. Once the sleeve resection was completed, the staple line of the gastric sleeve was reinforced with Hemoclips. The resected stomach was retrieved without difficulty from the Francesca port. A gastropexy was then performed in order to prevent postoperative GERD and partial gastric volvulus. Several interrupted 2.0 Surgidac sutures were placed between the sleeve's staple line and the previously divided greater omentum and gastro-colic ligament using the Endo-Stitch device. ?An upper endoscopy was performed. There was no narrowing at the GE junction. The scope was easily advanced all the way to the pylorus which was clearly visualized. There was no narrowing anywhere and the sleeve's caliber was even throughout. The sleeve's staple line was inspected and there was no evidence of ischemia, bleeding or dehiscence. At that point the gastroscope was withdrawn from the patient?s mouth while we were decompressing the bowel and the stomach from any remaining air. I looked into the lesser sac to see how the sleeve was situating and it was situating well. There was no bleeding from the staple line, spleen, or short gastric vessels. The Mediflex retractor was removed, and the undersurface of the liver was inspected and there was no bleeding. The patient was placed in supine position. I closed the fascial defect of the 12 mm port site with a figure of eight #1 Polysorb suture. Then 30cc of Ropivacaine plain with 10 mg of Dexamethasone were used to infiltrate the fascial closure as well as all skin incisions.A total of 7ml Zynrelef was applied in the Francesca wound. At this point, the abdomen was deflated, all ports were removed under direct vision, and no bleeding was noted from any of the port sites. The skin incisions were irrigated with saline and were closed with 4-0 absorbable monofilament sutures. Steri-Strips and OpSites were used to cover all incisions. The patient was extubated and was transferred in stable condition to the recovery room for further care. I was present and performed all [place] parts of the procedure. Sg was the transport assistant. There were no residents to assist with this case. Kushal Huynh MD, PhD, FACS Surgeon: Sean Huynh MD Anesthesia: GETA, local and other (TAP block and 7ml Zynrelef) Was an Die Cleaner used for this Procedure?: No Die Cleaner: Deysi Bettencourt Estimated blood loss (mL): 10 IV fluids (mL): 2,100 Urine output (mL): 0 (No Goldman to record output) Pathology: other (Stomach) Condition: stable Disposition: PACU
--- NOTE | 2022-02-08 07:38 | PM.PNGS ---
Subjective Subjective Date of Service: 02/09/22 Interval history: Patient has mild incisional pain, but was able to ambulate and use the incentive spirometer. He is tolerating phase 1 bariatric diet Physical Exam Vital Signs: Vital Signs: Last Vital Signs Temp 97.0 F 02/08/22 07:09 Pulse 98 02/08/22 07:09 Resp 18 02/08/22 07:09 BP 121/80 02/08/22 07:09 Pulse Ox 99 02/08/22 07:09 O2 Del Method 02/08/22 07:09 BMI result Body Mass Index 35.5 GI: Inspection: Yes normal to inspection, Yes incision (clean, dry and intact) and Yes obesity Palpation (GI): Soft to palpation Extrem: Right lower extremity: normal to inspection (no calf tenderness) Left lower extremity: normal to inspection (no calf tenderness) Objective Data Active Medications Lactated Ringer's (Lr) 1,000 mls @ 100 mls/hr IVCONT .Q10H ROMAINE Lactated Ringer's (Lr) 1,000 mls @ 999 mls/hr IV .Q1H1M ROMAINE Stop: 02/08/22 09:00 Labs CBC & Chem 7: 02/09/22 05:24 02/09/22 05:24 Labs: Laboratory Results - last 24 hr 02/08/22 06:50 COVID-19 ([facility]) Negative COVID-19 Clin Com See Note Procedures Date of Service Date of Service: 02/09/22 Progress Note: A&P Assessment and plan (1) Obesity: Status: Acute Assessment and Plan: s/p laparoscopic sleeve gastrectomy, lysis of adhesions and gastropexy Doing well Check am labs. If OK, will discharge home? (2) BMI 36.0-36.9,adult: Status: Acute (3) Sleep apnea with use of continuous positive airway pressure (CPAP): Status: Acute (4) GERD (gastroesophageal reflux disease): Status: Acute (5) Atrial fibrillation: Status: Acute (6) Cardiomyopathy: Status: Acute (7) DJD (degenerative joint disease): Status: Acute (8) Liver fibrosis: Status: Acute (9) Status post sleeve gastrectomy: Status: Acute (10) Congenital intra-abdominal adhesions: Status: Acute Time Spent With Patient Time: Total time managing care of this patient today ____ minutes. Quality Stroke Does the patient have a stroke diagnosis?: No VTE Prior VTE?: No VTE Risk Level:: Surgical - moderate VTE Device Contraindication: N/A - Device Ordered VTE Drug Contraindication: Treatment Not Indicated
[2022-02-08] MEDS: ceFAZolin Sodium/Dextrose,Iso 2 GM/50 ML PIGGYBACK IV ×2 (07:52→13:59)
[2022-02-08] MEDS: Acetaminophen 1,000 MG/100 ML PIGGYBACK 400 MG IV (10:05)
--- NOTE | 2022-02-08 10:45 | PHA.MEDREC ---
Pharmacy Consult ? Medication Reconciliation Pharmacy has reviewed the medication reconciliation completed by nursing. Per [place], patient stopped Xarelto and start fonaparinux 5 days prior to surgery. Patient will start Xarelto once provider approves to restart. Nazia Singh, PharmD
--- NOTE | 2022-02-08 10:58 | P.DS_ITS ---
DS: Providers Provider Date of Service: 02/09/22 Primary care physician: Kuldip Stephens MD Consults: 02/08/22 10:47 Consult to Cardiology Stat Consulting Provider: Antolin Ba Reason for consultation: POD # 0 sleeve gastrectomy, afib, cardiomyopathy with tachycardia Has provider been notified: Yes DS: Diagnosis Discharge Diagnosis (1) Obesity: Status: Acute (2) BMI 36.0-36.9,adult: Status: Acute (3) Sleep apnea with use of continuous positive airway pressure (CPAP): Status: Acute (4) GERD (gastroesophageal reflux disease): Status: Acute (5) Atrial fibrillation: Status: Acute (6) Cardiomyopathy: Status: Acute (7) DJD (degenerative joint disease): Status: Acute (8) Liver fibrosis: Status: Acute (9) Status post sleeve gastrectomy: Status: Acute (10) Congenital intra-abdominal adhesions: Status: Acute DS: Summary Hospital Course Hospital Course: ADMITTING DIAGNOSIS: morbid obesity, cardiomyopathy, ROLO, HTN DISCHARGE DIAGNOSIS: same, s/p laparoscopic sleeve gastrectomy PAST SURGICAL HISTORY: cardiac ablation, knee surgery PROCEDURE: upper endoscopy, laparoscopic sleeve gastrectomy DISCHARGE SUMMARY: History of Present Illness: The patient is a 51 year-old man with a BMI of 38.9 kg/m2 and associated co- morbidities as described above. The patient had extensive work-up, lost 41.8 lbs preoperatively and was electively scheduled for laparoscopic, possible open sleeve gastrectomy and gastropexy. Risks and complications of the surgery were discussed with the patient in advance, particularly the possibility of , pulmonary embolism, anastomotic leak, bleeding, bowel injury, GERD, cardiac, renal or pulmonary complications. The patient understood all the risks and was in agreement with the surgical plan. Hospital Course: The patient underwent an uneventful laparoscopic sleeve gastrectomy with gastropexy on the day of admission. Postoperatively, the patient was transferred to the surgical floor. The patient received IV Acetaminophen and IV dilaudid for pain control. Patient was started on bariatric phase 1 diet POD #0. On postoperative day one, the patient was feeling well without nausea, vomiting, fevers, or tachycardia. The patient had some mild incisional pain and the abdomen was soft. Dr Nikos Cope from cardiology was consulted and patient receive 2 doses of Digoxin IV on POD #0, he remained in NSR. On the morning of postoperative day one, the patient was continued on 1 ounce of water or ice every half hour. During the day, the patient did fairly well, having some incisional pain, but able to ambulate adequately and to tolerate liquids well. Since the patient is doing well, we decided that the patient was ready to be discharged. The patient was given instructions to follow-up with me next week and to call my office for any fever over 101, persistent abdominal pain, nausea, vomiting, GERD, symptoms of DVT such as calf tenderness, or leg swelling, or pulmonary embolism such as chest pain or shortness of breath. The patient was also instructed to drink 40-60 ounces of liquids per day using the 1-ounce cups. The patient had been given prescriptions for Tylenol for pain, Zofran prn for nausea, and pantoprazole and carafate previously. The patient was encouraged to ambulate and use the incentive spirometer. The patient was allowed to shower, but no baths, and encouraged to stay active at home. All of these instructions were given to the patient personally. All questions were answered and the patient understood all instructions, the instructions were also given to the patient in print. Time Spent with Patient Time attestation: Total time managing care of this patient today ____ minutes. Discharge coordination time: Less than 30 minutes Quality: Safe Use of Opioids Does Pt have an Active Cancer Diagnosis on the Problem List?: No Quality: Stroke Does the patient have a stroke diagnosis?: No Physical Exam Vital Signs: Vital Signs: Last Vital Signs Temp 97.6 F 02/08/22 10:46 Pulse 111 H 02/08/22 10:46 Resp 22 H 02/08/22 10:46 BP 127/76 02/08/22 10:46 Pulse Ox 100 02/08/22 10:46 O2 Del Method 02/08/22 10:46 O2 Flow Rate 6 02/08/22 10:46 BMI result Body Mass Index 35.5 DS: Data Data Completed and Pending Pending studies at discharge: Pending at discharge 02/08/22 09:45 Surgical [PTH] Routine Labs on day of discharge: Laboratory Results - last 24 hr 02/08/22 02/08/22 06:50 07:03 COVID-19 ([facility]) Negative COVID-19 Clin Com See Note Blood Type O Positive Antibody Screen NEGATIVE Discharge Plan Discharge Patient Disposition: Home, Self-Care Referrals: Kuldip Stephens MD [Primary Care Provider] - 1 Week Discharge Medications: No Action thiamine HCl (vitamin B1) 100 mg tablet 100 mg PO DAILY Qty: 30 2RF Xarelto 20 mg tablet 20 mg PO DAILY Qty: 30 5RF metoprolol succinate 100 mg tablet extended release 24 hr 100 mg PO DAILY meloxicam 15 mg tablet 15 mg PO DAILY polyethylene glycol 3350 [Miralax] 17 gram powder in packet 17 g PO DAILY Qty: 14 0RF Rx Instructions: Mix each packet with 8oz of water and do 7 packets on 02/06/22 and another 7 packets on 02/07/22 pantoprazole 40 mg tablet,delayed release (DR/EC) 40 mg PO DAILY Qty: 30 2RF sucralfate 100 mg/mL suspension 10 ml PO BID Qty: 400 2RF ondansetron HCl 4 mg tablet 4 mg PO Q12H Qty: 20 0RF fondaparinux 2.5 mg/0.5 mL syringe 2.5 mg subcut Q24H Discharge Orders: Discharge Order (Routine); Ordered 02/09/22 Ordered By: Sean Huynh Activity on Discharge: No heavy lifting Discharge Date/Time: 02/09/22 10:08
[2022-02-08] MEDS: Lactated Ringers 1,000 ML 100 ML IVCONT ×2 (11:00→21:58)
[2022-02-08 11:07] LABS: Hematocrit 43.9 % (42.0-52.0); Hemoglobin 15.2 g/dl (14.0-18.0)
[2022-02-08] MEDS: Metoclopramide HCl 10 MG/2 ML VIAL IVPUSH ×2 (11:25→19:30)
[2022-02-08] MEDS: HYDROmorphone HCl 0.5 MG/0.5 ML SYRINGE 0.25 MG IVPUSH (11:28)
[2022-02-08 11:33] LABS: Anion Gap 13 (12-20); Blood Urea Nitrogen 16 mg/dL (9-16); Carbon Dioxide 21 mmol/L (22-29); Chloride 106 mmol/L (96-108); Creatinine Clr Calc Pharmacy 125.6; Estimated Glomerular Filt Rate > 60; Glucose Random 117 mg/dL (60-115); Potassium 4.4 mmol/L (3.3-5.1); Sodium 136 mmol/L (135-145)
[2022-02-08] MEDS: Famotidine/PF 20 MG/2 ML VIAL IVPUSH ×2 (11:49→21:57)
[2022-02-08] MEDS: Acetaminophen 1,000 MG/100 ML PIGGYBACK 16.7 MG IV ×2 (16:04→21:58)
--- NOTE | 2022-02-08 16:44 | PM.CNCAR ---
History of Present Illness History of Present Illness Date of Service: 02/08/22 Requesting physician: Deysi Bettencourt Consult reason: atrial fibrillation Chief complaint: Obesity, unspecified Narrative: I was consulted to see Omar in cardiology care for persistent atrial fibrillation with rapid ventricular response. I seen in preoperative clearance and today he underwent sleeve gastrectomy under general anesthesia. Through the surgery he had difficulty in maintaining his heart rate. He did take his oral metoprolol this morning. He did received IV metoprolol and esmolol in the operating room. The not having any symptoms. Denies any palpitations rapid heart rate. Heart rate running at 100-110 beats per minute in atrial fibrillation. He denies any heart failure symptoms. Obviously has some discomfort at the surgical site. He has started after seeing me in the office on Xarelto therapy but then was switched to fondaparinux, which as discussed is not adequate prophylaxis for stroke prevention and atrial fibrillation. Can resume his oral medications. Denies orthopnea PND leg edema. No chest pain. Review of Systems Constitutional: Constitutional: Reports no additional constitutional complaints Eyes: Eyes: Reports no additional eye complaints Cardiovascular: Cardiovascular: Reports no additional cardiovascular complaints Respiratory: Respiratory: Reports no additional respiratory complaints Gastrointestinal: Gastrointestinal: Reports abdominal pain (Postsurgical) Genitourinary: Genitourinary: Reports no additional male genitourinary complaints Musculoskeletal: Musculoskeletal: Reports no additional musculoskeletal complaints Neurologic: Reports system reviewed and no additional complaints, except as documented Psychiatric: Psychiatric: Reports no additional psychiatric complaints Endocrine: Endocrine: Reports no additional endocrine complaints PMFSH Past Medical History Medical History Atrial fibrillation COVID-19 vaccine series completed Elevated cholesterol GERD (gastroesophageal reflux disease) History of COVID-19 HTN (hypertension) On anticoagulant therapy On beta salud at home Sleep apnea Surgical History Surgical History Hx of colonoscopy Hx of knee surgery Hx of tonsillectomy S/P ablation of atrial fibrillation Social History Social History Household Members: Family Household Members Other:: Mother Are you a primary wound care nurse to a significant other at home: Yes (Helps take care of his mother) Do you presently have visiting nurse or other home services: No Alcohol intake: current Alcohol intake frequency: a few times a month Patient Tobacco Use Status: Never used Tobacco Second Hand Smoke Exposure: No Use of substances other than those prescribed or required for medical reasons: No Currently Displaying Signs/Symptoms of Drug Intoxication Withdrawal: No Are you DNR?: No Advance Directives: No Advance Directives Information Provided: Yes Meds Allergies Allergy/AdvReac Type Severity Reaction Status Date / Time No Known Allergies Allergy Verified 01/26/22 08:54 Active Medications: Current Medications Famotidine (Famotidine/Pf 20 Mg/2 Ml Vial) 20 mg IVPUSH BID [facility] Last Admin: 02/08/22 11:49 Dose: 20 mg Fentanyl (Fentanyl Citrate/Pf 100 Mcg/2 Ml Vial) 25 mcg IVPUSH Q5M PRN; Protocol PRN Reason: Pain, Moderate (Pain Scale 4-6 Hydromorphone HCl (Hydromorphone Hcl 0.5 Mg/0.5 Ml Syringe) 0.25 mg IVPUSH Q5M PRN; Protocol PRN Reason: Pain, Severe (Pain Scale 7-10) Last Admin: 02/08/22 11:28 Dose: 0.25 mg Hydromorphone HCl (Hydromorphone Hcl 0.5 Mg/0.5 Ml Syringe) 0.25 mg IVPUSH Q4H PRN; Protocol PRN Reason: Pain, Moderate (Pain Scale 4-6 Lactated Ringer's (Lr) 1,000 mls @ 100 mls/hr IVCONT .Q10H [facility] Last Admin: 02/08/22 11:00 Dose: 100 mls/hr Lactated Ringer's (Lr) 1,000 mls @ 100 mls/hr IVCONT .Q10H [facility] Last Admin: 02/08/22 16:10 Dose: Not Given Acetaminophen (Ofirmev) 1,000 mg in 100 mls @ 16.7 mls/hr IV .Q6H [facility] Last Admin: 02/08/22 16:04 Dose: 16.7 mls/hr Metoprolol Tartrate 5 mg/ (Sodium Chloride) 55 mls @ 110 mls/hr IV Q6H [facility] Metoclopramide HCl (Metoclopramide Hcl 10 Mg/2 Ml Vial) 10 mg IVPUSH Q6H PRN PRN Reason: Nausea Last Admin: 02/08/22 11:25 Dose: 10 mg Ondansetron HCl (Ondansetron Hcl 4 Mg/2 Ml Vial) 4 mg IVPUSH ONCE PRN PRN Reason: Nausea and Vomiting Ondansetron HCl (Ondansetron Hcl 4 Mg/2 Ml Vial) 4 mg IVPUSH Q8H [facility] Last Admin: 02/08/22 16:11 Dose: Not Given Sodium Chloride (0.9 % Sodium Chloride Flush 3 Ml Syringe) 3 ml IVFLUSH QSHIFT [facility] Last Admin: 02/08/22 16:10 Dose: Not Given Home Medications Medication Instructions Recorded Confirmed Last Taken Type metoprolol succinate 100 mg 100 mg PO DAILY 01/26/21 02/01/22 02/08/22 History tablet,extended release 24 hr meloxicam 15 mg tablet 15 mg PO DAILY 09/21/21 02/01/22 12/21/21 History fondaparinux 2.5 mg/0.5 mL 2.5 mg subcut Q24H 01/26/22 02/01/22 02/06/22 History subcutaneous solution syringe rivaroxaban 20 mg tablet (Xarelto) 1 tab PO DAILY 02/08/22 02/08/22 01/30/22 History Physical Exam Vital Signs: Vital Signs: Last Vital Signs Temp 97.6 F 02/08/22 15:34 Pulse 59 02/08/22 15:34 Resp 18 02/08/22 15:34 BP 120/81 02/08/22 15:34 Pulse Ox 99 02/08/22 15:34 O2 Del Method 02/08/22 15:34 O2 Flow Rate 2 02/08/22 14:00 BMI result Body Mass Index 35.5 Const: General: cooperative, comfortable, no acute distress, alert and awake Nutritional Appearance: obese Orientation/consciousness: patient oriented x3 HEENT: Head: Yes normocephalic and Yes atraumatic Neck: Neck: Yes trachea midline, Yes supple and Yes no JVD Resp: Effort & Inspection: normal respiratory effort Auscultation: clear to auscultation bilaterally Cardio: Jugular venous distension: no JVD Rate: tachycardic Rhythm: abnormal rhythm irregularly irregular Heart sounds: S1 normal heart sound present, S2 normal heart sound present, no click, no gallops and no murmurs GI: Auscultation: normal bowel sounds Neuro: General: patient oriented x3 and no focal motor deficits Extrem: General: Yes no clubbing, cyanosis or edema Objective Labs and Meds Result diagrams: 02/08/22 11:00 02/08/22 11:00 Lab results: Laboratory Results - last 24 hr 02/08/22 02/08/22 02/08/22 06:50 07:03 11:00 Hgb 15.2 Hct 43.9 Sodium Potassium Chloride Carbon Dioxide Anion Gap BUN Creatinine Estim Creat Clear Calc Estimated GFR Random Glucose Calcium COVID-19 ([facility]IVA) Negative COVID-19 Clin Com See Note Blood Type O Positive Antibody Screen NEGATIVE 02/08/22 11:00 Hgb Hct Sodium 136 Potassium 4.4 Chloride 106 Carbon Dioxide 21 L Anion Gap 13 BUN 16 Creatinine 0.98 Estim Creat Clear Calc 125.6 Estimated GFR > 60 Random Glucose 117 H Calcium 9.0 D COVID-19 ([facility]IVA) COVID-19 Clin Com Blood Type Antibody Screen Assessment and Plan (1) Atrial fibrillation: Status: Acute Atrial fibrillation with rapid ventricular response in this middle-aged man with undergoing surgery for sleeve gastrectomy today. Completely asymptomatic at this point time. Give couple of doses IV digoxin 0.25 mg IV push q.6 hours x2 doses. Continues usual dose of metoprolol. Most likely cause of his slightly rapid ventricular response appears to be anxiety and pain. Continue to manage both. Resume oral anticoagulation therapy as soon as possible post surgically. Plan for eventual synchronized cardioversion once he has been on adequate anticoagulation for at least 4 weeks. This was discussed with him. He understands and agrees. (2) Cardiomyopathy: Status: Acute Cardiomyopathy without any signs or symptoms of heart failure. Most likely appears to be tachycardia mediated related to atrial fibrillation. No signs of myocardial ischemia. No signs of heart failure. Continue rate control and eventual rhythm control with synchronized cardioversion to resolve LV systolic function. Continue metoprolol therapy for neurohormonal modulation. Consider additional losartan 25 mg to his regimen for neurohormonal modulation as well. Will sign of the case, if the patient's heart rate is uncontrolled please let us know. Will follow-up as outpatient as per patient's wishes. Thank you for allowing me to partake in his care Time Spent With Patient Time: Total time managing care of this patient today ____ minutes. Procedures Date of Service Date of Service: 02/08/22
[2022-02-08] MEDS: Metoprolol Tartrate 5 MG in 0.9 % Sodium Chloride 50 ML 110 MG IV ×2 (17:02→22:48)
[2022-02-08] MEDS: Digoxin 0.5 MG/2 ML AMPUL 0.25 MG IVPUSH ×2 (17:28→23:36)
[2022-02-08] MEDS: ondansetron HCL 4 MG/2 ML VIAL IVPUSH (23:44)
[2022-02-09] MEDS: Metoprolol Tartrate 5 MG in 0.9 % Sodium Chloride 50 ML 110 MG IV (03:54)
[2022-02-09] MEDS: Acetaminophen 1,000 MG/100 ML PIGGYBACK 16.7 MG IV (03:55)
[2022-02-09 04:00] VITALS: BP 128/80; PULSE 97; RESP 18; TEMP 36.2; O2SAT 96
[2022-02-09 06:34] LABS: MANUAL DIFF FLAG NO
[2022-02-09 06:41] LABS: Basophils Percent Auto 0.1 % (0-2); Hematocrit 44.3 % (42.0-52.0); Hemoglobin 15.2 g/dl (14.0-18.0); Imm Gran Abs Auto 0.05 X10*3/uL (0.00-0.03); Imm Gran Pct Auto 0.4 % (0.0-0.4); Lymphocytes Absolute Auto 1.3 X10*3/uL (1.2-4.9); Lymphocytes Percent Auto 9.3 % (20-40); Mean Corpuscular HGB Conc 34.3 g/dl (31.0-36.0); Mean Corpuscular Hemoglobin 32.4 pg (27.0-33.0); Mean Corpuscular Volume 94.5 fL (80.0-98.0); Mean Platelet Volume 10.1 fL (9.4-12.4); Monocytes Absolute Auto 0.7 X10*3/uL (0.1-1.2); Monocytes Percent Auto 4.9 % (2-11); Neutrophils Absolute Auto 11.6 x10*3/uL (2.0-8.3); Neutrophils Percent Auto 85.3 % (45-73); Platelet Count 348 X10*3/uL (160-400); Red Blood Count 4.69 X10*6/uL (4.60-5.80); Red Cell Distribution Width 12.5 % (11.0-16.0); White Blood Count 13.5 X10*3/uL (4.8-10.8)
[2022-02-09 06:45] VITALS: BP 126/82; PULSE 87; RESP 18; TEMP 36.6; O2SAT 91
[2022-02-09 07:11] LABS: Anion Gap 18 (12-20); Blood Urea Nitrogen 13 mg/dL (9-16); Calcium 9.2 mg/dL (8.4-10.2); Carbon Dioxide 21 mmol/L (22-29); Chloride 103 mmol/L (96-108); Creatinine Clr Calc Pharmacy 150.1; Estimated Glomerular Filt Rate > 60; Glucose Random 97 mg/dL (60-115); Potassium 4.5 mmol/L (3.3-5.1); Sodium 137 mmol/L (135-145)
[2022-02-09] MEDS: Famotidine/PF 20 MG/2 ML VIAL IVPUSH (07:12)
[2022-02-09] MEDS: ondansetron HCL 4 MG/2 ML VIAL IVPUSH (07:15)
--- NOTE | 2022-02-09 09:03 | MHC.CM.PN ---
pt dcd home no skilled servcies ordered by ,d
--- NOTE | 2022-02-09 11:05 | HO.POSTANES ---
Post Anesthesia Evaluation Post Anesthesia Evaluation Vital Signs: Vital Signs Temp Pulse Resp BP Pulse Ox O2 Del Method 02/09/22 06:45 98 F 87 18 126/82 91 L Room Air 02/09/22 04:00 97.1 F 97 18 128/80 96 Room Air 02/08/22 23:37 90 Anesthesia: General Endotracheal-GETA Mental Status: Awake Pain Control: Satisfactory Nausea/Vomiting: None Hydration: Adequate Anesthesia-Related Issues: No Anes. Related Issues
== END 2022-02-09 10:08 | disposition home or self-care (01) ==
LOC: HO.SSS 10:57 → HO.S3 14:42
PROVIDERS: Physician Assistant; PCP Internal Medicine; Visit Provider Surgery
PROC: (CPT 43845; principal; 2022-02-08 08:10)
DX: E66.01 Morbid (severe) obesity due to excess calories (principal); Z68.36 Body mass index [BMI] 36.0-36.9, adult; Q43.3 Congenital malformations of intestinal fixation; K21.9 Gastro-esophageal reflux disease without esophagitis; I10 Essential (primary) hypertension; G47.30 Sleep apnea, unspecified; G47.10 Hypersomnia, unspecified; K74.00 Hepatic fibrosis, unspecified; E78.00 Pure hypercholesterolemia, unspecified; I48.0 Paroxysmal atrial fibrillation; I42.9 Cardiomyopathy, unspecified; Z79.01 Long term (current) use of anticoagulants; Z79.899 Other long term (current) drug therapy; Z99.89 Dependence on other enabling machines and devices; Z86.16 Personal history of COVID-19; Z20.822 Contact with and (suspected) exposure to COVID-19
CPT/HCPCS: 43775; 43659; 49329; 36415; 80048; 80053; 85014; 85018; 85025; 85610; 85730; 86850; 86900; 86901; 87635; 88307; 88342; A4649; C9088; J0131; J0690; J1100; J1160; J1170; J2250; J2370; J2405; J2550; J2765; J2795; J3010

== ENCOUNTER → 2022-02-15 08:50 | Outpatient (BNVA) | payer OTHER, SELFPAY | PROVIDERS: PCP Internal Medicine; Visit Provider Physician Assistant Surgical | DX: Z13.89 Encounter for screening for other disorder (principal) ==

== ENCOUNTER → 2022-02-16 14:25 | Outpatient (BNVA) | payer OTHER, SELFPAY | PROVIDERS: PCP Internal Medicine; Visit Provider Dietitian, Registered | DX: E66.9 Obesity, unspecified (principal); Z71.3 Dietary counseling and surveillance | CPT/HCPCS: 97803 ==

== ENCOUNTER → 2022-02-24 15:07 | Outpatient (BNVA) | payer OTHER, SELFPAY | PROVIDERS: PCP Internal Medicine; Visit Provider Nurse Practitioner Family | DX: Z79.899 Other long term (current) drug therapy (principal) ==

== ENCOUNTER → 2022-03-02 15:36 | Outpatient (BNVA) | payer OTHER, SELFPAY | PROVIDERS: PCP Internal Medicine; Visit Provider Physician Assistant Surgical | DX: E66.9 Obesity, unspecified (principal) ==

== ENCOUNTER → 2022-03-29 15:50 | Outpatient (BNVA) | payer OTHER, SELFPAY | PROVIDERS: PCP Internal Medicine; Visit Provider Physician Assistant Surgical | DX: Z13.89 Encounter for screening for other disorder (principal) ==

== ENCOUNTER → 2022-04-28 14:56 | Outpatient (BNVA) | payer OTHER, SELFPAY | PROVIDERS: PCP Internal Medicine; Referring Provider Internal Medicine; Visit Provider Internal Medicine Cardiovascular Disease | DX: I48.91 Unspecified atrial fibrillation (principal); I42.9 Cardiomyopathy, unspecified | CPT/HCPCS: 93005 ==

== ENCOUNTER 2022-05-04 11:19 | Day surgery (SDC) | payer OTHER, SELFPAY ==
--- NOTE | 2022-05-03 13:35 | P.CONAN_ITS ---
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 (Acute) Liver fibrosis (Acute) Cardiomyopathy (Acute) Sleep apnea with use of continuous positive airway pressure (CPAP) (Acute) Obesity (Acute) GERD (gastroesophageal reflux disease) (Acute) Atrial fibrillation (Acute) Past Medical History Medical History Atrial fibrillation BMI 36.0-36.9,adult COVID-19 vaccine series completed Depressive disorder DJD (degenerative joint disease) Elevated cholesterol Encounter for monitoring bridging anticoagulation therapy GERD (gastroesophageal reflux disease) History of COVID-19 HTN (hypertension) Morbid obesity On anticoagulant therapy On beta salud at home Sleep apnea Family History Family history of problems with anesthesia: No Surgical History Surgical History Hx of colonoscopy Hx of knee surgery Hx of tonsillectomy S/P ablation of atrial fibrillation History of Problems with Anesthesia: No Social History Social History Household Members: Family Household Members Other:: Mother Are you a primary rn progressive care unit to a significant other at home: Yes (Helps take care of his mother) Do you presently have visiting nurse or other home services: No Alcohol intake: current Alcohol intake frequency: a few times a month Patient Tobacco Use Status: Never used Tobacco Second Hand Smoke Exposure: No Are you DNR?: No Advance Directives: No Advance Directives Information Provided: Yes Meds Allergies Allergy/AdvReac Type Severity Reaction Status Date / Time No Known Allergies Allergy Verified 02/15/22 09:27 Exam Exam Date and Time: May 03, 2022 1335 Pertinent Lab Results Pertinent Lab Results: Laboratory Tests 02/09/22 02/09/22 05:24 05:24 WBC 13.5 H Hgb 15.2 Hct 44.3 Plt Count 348 Sodium 137 Potassium 4.5 Chloride 103 Carbon Dioxide 21 L BUN 13 Creatinine 0.82 Narrative Narrative: EKG 04/2022 atrial fibrillation with will take criteria for LVH or LV enlargement at 94 beats per minute ECHO 12/2021 Conclusions: - 1. Moderate LV systolic dysfunction with LVEF of 35-40%? 2. Biatrial enlargement, left atrium moderately dilated? 3. Normal cardiac valvular Doppler ? 4. No gross pericardial effusion ? ?? NM skye perf SPECT rest & str 01/2022 Impression: ? 1.? Myocardial perfusion imaging study shows normal myocardial perfusion 2.? Gated LVEF is 47% 3. Transient ischemic dilatation not present but LV cavity is dilated ? EKG is nondiagnostic for ischemia ? Assessment and Plan Assessment Anesthesia Assessment: Chart Reviewed Final Anesthetic Review Family History of Problems with Anesthesia: No History of Problems with Anesthesia: No Documented by User: Arpit Arevalo MD 05/04/22 12:49 PMFSH Past Medical History Medical History Atrial fibrillation BMI 36.0-36.9,adult COVID-19 vaccine series completed Depressive disorder DJD (degenerative joint disease) Elevated cholesterol Encounter for monitoring bridging anticoagulation therapy GERD (gastroesophageal reflux disease) History of COVID-19 HTN (hypertension) Morbid obesity On anticoagulant therapy On beta salud at home Sleep apnea Surgical History Surgical History Hx of colonoscopy Hx of knee surgery Hx of tonsillectomy S/P ablation of atrial fibrillation Social History Social History Household Members: Family Household Members Other:: Mother Are you a primary rn progressive care unit to a significant other at home: Yes (Helps take care of his mother) Do you presently have visiting nurse or other home services: No Alcohol intake: current Alcohol intake frequency: a few times a month Patient Tobacco Use Status: Never used Tobacco Second Hand Smoke Exposure: No Are you DNR?: No Advance Directives: No Advance Directives Information Provided: Yes Meds Allergies Allergy/AdvReac Type Severity Reaction Status Date / Time No Known Allergies Allergy Verified 02/15/22 09:27 Exam Airway Mallampati Class: III TM Dist: >3cm Neck ROM: Full Loose/Missing/Broken Teeth: No Heart: irreg irreg s1s2 Lungs: cta b/l Assessment and Plan Assessment Anesthesia Assessment: Anesthesia Plan Discussed Final Anesthetic Review NPO: Yes ASA Class: III Final Preanesthetic Review: No Changes in Pt Med Stat, Meds/Allgs Chart Reviewed, Consent Obtained/Reviewed and Anes Risks/Benef Reviewed Patient Risk: Intermediate Procedure Risk: Intermediate Assessment/Block/Sedation in SS: Assess/Block/Sedation-SS Anesthetic Plan Anesthetic Plan: GA and Agree w/ Assess. and Plan Disposition: Standard PACU
[2022-05-04 11:44] VITALS: BMI 30.8
[2022-05-04 11:47] VITALS: BP 111/84; PULSE 99; RESP 18; TEMP 36.3; O2SAT 98
[2022-05-04 11:59] VITALS: BMI 30.8
--- NOTE | 2022-05-04 12:53 | MHC.SHP ---
Pre-Procedural Eval Section A Date of Service: 05/04/22 The patient is an INPATIENT: No Changes since office visit: Yes Patient answered all questions; No Cold of Flu in the past 2 weeks, No New Medical Problems and No Changes in Medication The History & Physical has been completed within 30 days and I have reviewed it.: Yes Section B Chief Complaint: Other persistent atrial fibrillation Allergies: Allergies Allergy/AdvReac Type Severity Reaction Status Date / Time No Known Allergies Allergy Verified 02/15/22 09:27 Plan I have reviewed the history and physical and performed a pertinent physical examination on my patient. No changes have occurred unless specified. Time Spent With Patient Time: Total time managing care of this patient today ____ minutes.
[2022-05-04 13:28] VITALS: BP 109/74; PULSE 61; RESP 16; TEMP 36.7; O2SAT 97
[2022-05-04 13:33] VITALS: BP 106/73; PULSE 61; RESP 18; O2SAT 98
--- NOTE | 2022-05-04 13:33 | ECG_ITS ---
Test Reason : postop Blood Pressure : / mmHG Vent. Rate : 059 BPM Atrial Rate : 059 BPM P-R Int : 174 ms QRS Dur : 088 ms QT Int : 442 ms P-R-T Axes : 013 009 011 degrees QTc Int : 437 ms Sinus bradycardia Otherwise normal ECG When compared with ECG of 30-DEC-2021 09:44, Sinus rhythm has replaced Atrial fibrillation Vent. rate has decreased BY 29 BPM Referred By: Nikos Muniz Electronically Signed By:NIKOS MUNIZ MD
--- NOTE | 2022-05-04 13:34 | HO.CARDIVERS ---
Cardioversion Procedure Note Cardioversion Date of Procedure: Today Ordering Provider: Myself Performing Provider: Myself Indication for Procedure: Persistent atrial fibrillation with LV systolic dysfunction Pre-Op Diagnosis: Same Post-Op Diagnosis: Normal sinus rhythm Performed with Transesophageal Echo: No Consent: Verbal and Written consent was obtained from the patient before starting and after confirming oral anticoagulation use. The patient was made aware of the risk of synchronized cardioversion including benefits and alternatives Procedure: After consent obtained, cardioversion pads were attached in anteroposterior configuration and the patient was sedated by the anesthesia team. Once adequate sedation achieved, patient was delivered 200 joules of biphasic synchronized energy in anteroposterior configuration Complications: None Impression: Successful conversion to sinus rhythm Recommendations: 1. Continue Multaq and Xarelto 2. Follow-up after limited echo and Holter monitor 3. Twelve lead EKG
[2022-05-04 13:38] VITALS: BP 99/56; PULSE 59; RESP 16; O2SAT 98
[2022-05-04 13:43] VITALS: BP 105/68; PULSE 58; RESP 18; O2SAT 99
[2022-05-04 14:03] VITALS: BP 113/59; PULSE 59; RESP 18; TEMP 36.3; O2SAT 100
== END 2022-05-04 14:17 | disposition home or self-care (01) ==
PROVIDERS: PCP Internal Medicine; Visit Provider Internal Medicine Cardiovascular Disease
PROC: 5A2204Z Restoration of Cardiac Rhythm, Single (ICD-10-PCS; principal; 2022-05-04 13:00)
DX: I48.19 Other persistent atrial fibrillation (principal); I42.9 Cardiomyopathy, unspecified; I10 Essential (primary) hypertension; E78.00 Pure hypercholesterolemia, unspecified; G47.33 Obstructive sleep apnea (adult) (pediatric); Z79.01 Long term (current) use of anticoagulants; Z79.899 Other long term (current) drug therapy
CPT/HCPCS: 92960; 93005; J0330; J2370

== ENCOUNTER → 2022-05-18 07:39 | Outpatient (REF) | payer OTHER, SELFPAY ==
--- NOTE | 2022-05-18 07:43 | CA_ITS ---
Transthoracic Echocardiogram/Limited Patient (Last, First, Middle): Omar Goldman M Gender: Male Date of : 1970 Age: 51 Procedure Date: 05/18/2022 Procedure Type: Transthoracic Echocardiogram/Limited Location: OP Height: 187.96 cm Weight: 108.86 kg BSA: 2.35 m2 Heart Rate: 50 bpm BP: 105 / 70 mmHg Chemical Dependency Nurse: ROWAN Referring MD: Nikos Muniz MD Utility Spray Operator: Nikos Muniz MD Symptoms: I42.9 - Cardiomyopathy, unspecified Study Quality: Fair/Contrast ECG Rhythm: Bradycardia Conclusions: - Mildly dilated left ventricle with mild systolic dysfunction with LVEF of 45-50% Findings Procedure Information Contrast agent, definity, is being given per protocol without apparent complications. Left Ventricle Mildly increased left ventricular cavity size. The left ventricular systolic function is mildly decreased. Spectral Doppler is indicative of a normal filling pattern. Prior Study Comparison Changes noted compared to prior study dated: 12/31/2021. LV systolic function is improved Measurements 2D Linear Measurements IVSd: 0.92 0.6-0.9/0.6-1.0 cm LVIDd: 6.05 3.9-5.3/4.2-5.9 cm LVIDd Index: 2.57 2.4-3.2/2.2-3.1 cm/m2 LVIDs: 4.03 2.0-3.6 cm LVPWd: 0.96 0.7-1.1 cm LA Diam: 4.90 2.7-3.8/3.0-4.0 cm LAIDs Index: 2.09 1.5-2.3 cm/m2 LV Mass: 289.11 67-162/88-224 g LV Mass Index: 123.02 43-95/49-115 g/m2 LVOT Diam: 2.40 3.0+(-)1.3 cm 2D Systolic Function EF 4C: 41.90 >55% EF 2C: 48.80 >55% EF BiP: 47.30 >55% Mitral Valve MV Pk E: 0.61 MV PK A: 0.37 MV Decel Time: 288.00 E/A: 1.60 E'Lateral: 12.30 E'Medial: 8.67 E/E' Med: 7.00 E/E' Lat: 4.90 PHT: 84.00 MVA PHT: 2.62 Decel Wells: 2.11 LVOT LVOT Pk Addy: 0.82 LVOT Mn Addy: 0.59 LVOT VTI: 0.19 LVOT Pk Grad: 3.00 LVOT Mn Grad: 2.00 LVOT Diam: 2.40 LVOT Area: 4.52 Diastolic Function MV Pk E: 0.61 MV Pk A: 0.37 E/A: 1.60 E'Medial: 8.67 E/E' Med: 7.00 E' Laterial: 12.30 E/E' Lat: 4.90 Updated in Other Vendor System with Status of Final Nikos Muniz MD electronically signed on 05/18/2022 12:05:19 PM with status of Final
--- NOTE | 2022-05-18 07:43 | HM_ITS ---
* Total monitoring time about 4 days. * Underlying rhythm is sinus. Average ventricular rate 65/Min. Range 45 to 149/Min. * No evidence of atrial fibrillation or flutter. * Rare supraventricular and ventricular ectopy with minimal burden. * No significant pauses or AV blocks. * No patient markers or events in diary. MTDD
== END ==
LOC: HO.CARD 07:39
PROVIDERS: Visit Provider Internal Medicine Cardiovascular Disease
DX: I48.91 Unspecified atrial fibrillation (principal)
CPT/HCPCS: 93242; 93308; Q9957

== ENCOUNTER → 2022-07-14 14:10 | Outpatient (BNVA) | payer OTHER, SELFPAY | PROVIDERS: PCP Internal Medicine; Referring Provider Internal Medicine; Visit Provider Internal Medicine Cardiovascular Disease | DX: I48.0 Paroxysmal atrial fibrillation (principal) | CPT/HCPCS: 93005 ==

== ENCOUNTER 2022-10-25 15:11 | Outpatient (AMB) | payer OTHER, SELFPAY ==
--- NOTE | 2022-10-25 15:26 | AM.OFFVISNUR ---
Intake Intake Visit Reasons: 3 mth ekg Allergies No Known Allergies Allergy (Verified 02/15/22 09:27) Nursing Note Pt seen for 3 month EKG on Multaq 400BID. Pt feels well no cardiac complaints. Reports that he has only been taking Multaq once a day. EKG shows auto reading of sinus-bradycardia w/ heart rate of 51BPM. EKG reviewed by Dr. Muniz, advise pt to take Multaq BID or else at risk for break through of aifb. Pt verbalized understanding and has an appt in January. Office Procedures EKG [id number], Complete Coding CPT Codes EKG - CPT: 01901-[id number], Complete ([id number])
== END 2022-10-25 15:26 | disposition home or self-care (01) ==
PROVIDERS: PCP Internal Medicine; Referring Provider Internal Medicine; Visit Provider Internal Medicine Cardiovascular Disease
DX: R00.1 Bradycardia, unspecified (principal)
CPT/HCPCS: 93010

== ENCOUNTER → 2022-10-25 15:11 | Outpatient (BNVA) | payer OTHER, SELFPAY | PROVIDERS: PCP Internal Medicine; Referring Provider Internal Medicine; Visit Provider Internal Medicine Cardiovascular Disease | DX: Z79.899 Other long term (current) drug therapy (principal) | CPT/HCPCS: 93005 ==

== ENCOUNTER 2022-11-01 15:07 | Outpatient (AMB) | payer OTHER, SELFPAY ==
--- NOTE | 2022-11-01 15:16 | MHC.OFFVISWM ---
Intake VS Expanded 11/01/22 15:24 Height 6 ft 2 in Weight 233 lb 12.8 oz BMI 30.0 BP 124/74 Blood Pressure Location Lt brachial Blood Pressure Position Sitting Pulse 61 Pulse Source Pulse Oximeter Temp 96.9 F Temperature Source Tympanic Pulse Oximetry 98 Oxygen Delivery Method Room Air Oxygen Flow Rate 61 Body Fat 59.8 Body Fat Percentage 25.6 Free Fat Mass 174.0 Muscle Mass 165.4 Visceral Mass 13.0 Water Mass 121.6 BMR 2,334 Intake Visit Reasons: (OV) PO LSG 02/08/22 Behavioral Health Worker Required: No Allergies No Known Allergies Allergy (Verified 02/15/22 09:27) Medication List - Last Reconciled 11/01/22 by OLGA Shah dronedarone (Multaq) 400 mg PO BID 90 days rivaroxaban (Xarelto) 20 mg PO DAILY HPI HPI Comments History of Present Illness Details 52-year-old male status post sleeve gastrectomy 02/08/2022 presents with complaint of acute left-sided rib pain. He states that approximately 2 weeks ago he was getting up on a palpable board while it was in the water and felt a ?pop? on the left side. He took Tylenol for several days and felt as though the pain is improving. He denied any radiation of the pain. He denied any change in bowel or bladder habits. He states, as above, that he was improving until yesterday when his girlfriend gave him a hug from behind at which point he felt an immediate sharp pain on the left side at the same spot although it only lasted very briefly. He additionally states that he is having trouble if he leans on his left side or sleeps on his left side. He is no longer taking Tylenol and overall feels improvement. [facility] Medical History (Updated 11/01/22 @ 15:52 by OLGA Shah) Encounter for monitoring bridging anticoagulation therapy History of COVID-19 On anticoagulant therapy On beta salud at home BMI 36.0-36.9,adult Depressive disorder DJD (degenerative joint disease) Morbid obesity Elevated cholesterol HTN (hypertension) COVID-19 vaccine series completed Sleep apnea GERD (gastroesophageal reflux disease) Atrial fibrillation Surgical History (Updated 11/01/22 @ 15:30 by Aranza Miles CMA) Hx of laparoscopic partial gastrectomy Hx of knee surgery Hx of colonoscopy Hx of tonsillectomy S/P ablation of atrial fibrillation Social History Household Members: Family Household Members Other:: Mother Are you a primary healthcare liaison to a significant other at home: Yes (Helps take care of his mother) Do you presently have visiting nurse or other home services: No Alcohol intake: current Alcohol intake frequency: a few times a month Patient Tobacco Use Status: Never used Tobacco Second Hand Smoke Exposure: No Review of Systems Const All systems reviewed & are unremarkable except as noted in HPI and below Physical Exam Vital Signs: Last Vital Signs Temp 96.9 F 11/01/22 15:24 Pulse 61 11/01/22 15:24 BP 124/74 11/01/22 15:24 Pulse Ox 98 11/01/22 15:24 Oxygen Delivery Method Room Air 11/01/22 15:24 Oxygen Flow Rate 61 11/01/22 15:24 BMI result Body Mass Index 30.0 Chest Chest palpation & inspection: localized rib tenderness with anteroposterior compression (Left lower rib) General: Yes no CVA tenderness Back/Spine/Pelvis Back: no CVA tenderness Assessment & Plan Assessment & Plan (1) Rib pain on left side: Code(s): R07.81 - Pleurodynia Plan: Due to the reproducible nature of the pain on the lower left ribcage, I suspect that he sustained a small nondisplaced fracture. Given that he self reports improvement over the last 2 weeks, I suggested that he take Tylenol twice a day over the next 2 weeks and to avoid strenuous activity. We discussed diagnostic imaging although given that this will not impact treatment and he is clinically improving, we will hold off on any imaging at this time. He is in agreement with the plan and will return to the clinic as needed. Coding Level of Care Code Est Pt Level 3 (61072) Diagnoses Rib pain on left side R07.81
[2022-11-01 15:24] VITALS: BP 124/74; PULSE 61; TEMP 36.1; O2SAT 98
== END 2022-11-01 15:53 | disposition home or self-care (01) ==
PROVIDERS: PCP Internal Medicine; Visit Provider Physician Assistant Surgical
DX: R07.81 Pleurodynia (principal)
CPT/HCPCS: 99213

== ENCOUNTER → 2022-11-01 15:07 | Outpatient (BNVA) | payer OTHER, SELFPAY | PROVIDERS: PCP Internal Medicine; Visit Provider Physician Assistant Surgical ==

== ENCOUNTER → 2023-01-17 13:45 | Outpatient (REF) | payer OTHER, SELFPAY ==
--- NOTE | 2023-01-17 13:51 | CA_ITS ---
Transthoracic Echocardiogram Patient (Last, First, Middle): Omar Goldman M Gender: Male Date of : 1970 Age: 52 Procedure Date: 01/17/2023 Procedure Type: Transthoracic Echocardiogram Location: OP Height: 187.96 cm Weight: 108.86 kg BSA: 2.35 m2 Heart Rate: bpm BP: 128 / 80 mmHg Hair Worker: Referring MD: Nikos Muniz MD Symptoms: I42.9 - Cardiomyopathy, unspecified Study Quality: Good ECG Rhythm: Sinus Conclusions: - The left ventricular systolic function is normal. The calculated ejection fraction is 61% by biplane method. Findings Left Ventricle Normal left ventricular cavity size. There is mildly increased left ventricular wall thickness. The left ventricular systolic function is normal. The calculated ejection fraction is 61% by biplane method. There is no evidence of regional wall motion abnormalities. Right Ventricle Mildly increased right ventricular cavity size. There is normal right ventricular systolic function. Venous The inferior vena cava is mildly dilated. Prior Study Comparison Changes noted compared to prior study dated: 05/18/2022. Improved LVEF. Measurements 2D Linear Measurements IVSd: 1.11 0.6-0.9/0.6-1.0 cm LVIDd: 5.57 3.9-5.3/4.2-5.9 cm LVIDd Index: 2.37 2.4-3.2/2.2-3.1 cm/m2 LVIDs: 3.54 2.0-3.6 cm LVPWd: 1.14 0.7-1.1 cm LV Mass: 317.62 67-162/88-224 g LV Mass Index: 135.16 43-95/49-115 g/m2 2D Systolic Function EF 4C: 61.70 >55% EF 2C: 61.30 >55% EF BiP: 60.90 >55% Mitral Valve MV Pk E: 0.45 MV PK A: 0.43 MV Decel Time: 185.00 E/A: 1.00 E'Lateral: 6.53 E'Medial: 6.64 E/E' Med: 6.80 E/E' Lat: 7.00 PHT: 54.00 MVA PHT: 4.07 Decel Sutton: 2.46 Diastolic Function MV Pk E: 0.45 MV Pk A: 0.43 E/A: 1.00 E'Medial: 6.64 E/E' Med: 6.80 E' Laterial: 6.53 E/E' Lat: 7.00 Updated in Other Vendor System with Status of Final Antolin Ba MD electronically signed on 01/18/2023 11:53:10 AM with status of Final
== END ==
LOC: HO.CARD 13:45
PROVIDERS: PCP Internal Medicine; Visit Provider Internal Medicine Cardiovascular Disease
DX: I42.9 Cardiomyopathy, unspecified (principal)
CPT/HCPCS: 93308

== ENCOUNTER → 2023-01-17 13:51 | Outpatient (BNV) | payer OTHER, SELFPAY | PROVIDERS: PCP Internal Medicine; Visit Provider Internal Medicine | DX: I42.9 Cardiomyopathy, unspecified (principal) | CPT/HCPCS: 93308 ==

== ENCOUNTER 2023-01-26 14:37 | Outpatient (AMB) | payer OTHER, SELFPAY ==
--- NOTE | 2023-01-26 14:45 | MHC.OFFVIS ---
Intake Vital Signs 01/26/23 14:46 Height 6 ft 2 in Weight 244 lb 11.41 oz BMI 31.4 BP 138/80 Blood Pressure Location Lt brachial Position Sitting Pulse 61 Intake Visit Reasons: 6 mth fu after echo Intake Note: 6 month follow-up after echo and ekg feeling good Thread Spooler Required: No Allergies No Known Allergies Allergy (Verified 02/15/22 09:27) Medication List - Last Reconciled 01/26/23 by Nikos Muniz MD dronedarone (Multaq) 400 mg PO BID 90 days rivaroxaban (Xarelto) 20 mg PO DAILY HPI HPI Comments History of Present Illness Details Omar comes for follow-up. He has been doing very well from cardiac perspective. He says he has been feeling great and lot of energy. Most recent echocardiogram shows normalized LV ejection fraction. He denies any symptoms of prolonged irregular heartbeat or palpitations. Denies any heart failure symptoms. No bleeding issues or neurologic events. Uses CPAP regularly. Does have a cup of coffee every day and does have alcohol on the weekend but not a lot. [facility] Medical History (Updated 01/26/23 @ 15:06 by Nikos Muniz MD) Cardiomyopathy Encounter for monitoring bridging anticoagulation therapy History of COVID-19 On anticoagulant therapy On beta salud at home BMI 36.0-36.9,adult Depressive disorder DJD (degenerative joint disease) Morbid obesity Elevated cholesterol HTN (hypertension) COVID-19 vaccine series completed Sleep apnea GERD (gastroesophageal reflux disease) Atrial fibrillation Surgical History Hx of laparoscopic partial gastrectomy Hx of knee surgery Hx of colonoscopy Hx of tonsillectomy S/P ablation of atrial fibrillation Social History Household Members: Family Household Members Other:: Mother Are you a primary home care assistant to a significant other at home: Yes (Helps take care of his mother) Do you presently have visiting nurse or other home services: No Alcohol intake: current Alcohol intake frequency: a few times a month Comment: rates pain 3-4/10 Patient Tobacco Use Status: Never used Tobacco Second Hand Smoke Exposure: No Review of Systems Const Denies chills, Denies fatigue, Denies fever(s), Denies frequent falls, Denies weakness, Denies weight gain and Denies weight loss ENT Denies dizziness Card Denies chest pain, Denies leg edema, Denies lightheadedness, Denies palpitations, Denies dyspnea, Denies dyspnea on exertion, Denies orthopnea and Denies other (loss of consciousness) Resp Denies cough, Denies dyspnea and Denies dyspnea on exertion GI Denies hematochezia and Denies change in stool character Musc Denies abnormal gait, Denies muscle weakness, Denies numbness, Denies radiating pain into limb and Denies tingling Neuro Denies abnormal gait, Denies dizziness, Denies frequent falls, Denies numbness, Denies tingling and Denies weakness Endo Denies fatigue and Denies palpitations Physical Exam Vital Signs: Last Vital Signs Pulse 61 01/26/23 14:46 BP 138/80 01/26/23 14:46 BMI result Body Mass Index 31.4 Const General: cooperative, comfortable, no acute distress, alert, awake and well groomed Nutritional Appearance: average body habitus Orientation/consciousness: patient oriented x3 Neck Neck: Yes trachea midline, Yes supple and Yes no JVD Resp Effort & Inspection: normal respiratory effort Auscultation: clear to auscultation bilaterally Cardio Jugular venous distension: no JVD Rhythm: abnormal rhythm irregularly irregular Heart sounds: S1 normal heart sound present, S2 normal heart sound present, no click, no gallops and no murmurs GI Auscultation: normal bowel sounds Neuro General: patient oriented x3 and no focal motor deficits Extrem General: Yes no clubbing, cyanosis or edema Office Procedures EKG Details: EKG shows normal sinus rhythm normal EKG with normal intervals [id number], Complete Assessment & Plan Assessment & Plan (1) Paroxysmal atrial fibrillation: Code(s): I48.0 - Paroxysmal atrial fibrillation Plan: Paroxysmal atrial fibrillation without any obvious symptoms related to AFib, question fatigue. He has not had any irregular heartbeat. However I discussed with him about importance of managing rhythm. This has helped him with normalization of LV systolic function. Continue to pursue rhythm control approach. Will continue Multaq 400 mg b.i.d.. Continue CPAP therapy. Recommend to avoid significant use of stimulants such as caffeine and alcohol. Advised to participate in heart healthy lifestyle and maintain his weight which has shown to reduce recurrence of atrial fibrillation. Currently has no other indication for oral anticoagulation therapy and will therefore discontinue it. Advised to call me with any new symptoms. (2) Cardiomyopathy: Comment: Normalized LV systolic function after maintenance of rhythm, most likely tachycardia mediated Code(s): I42.9 - Cardiomyopathy, unspecified Plan: Cardiomyopathy while in atrial fibrillation with persistent atrial fibrillation probably tachycardia mediated. LV systolic function is normalized. Advised to avoid cardiotoxic agent such as alcohol. Continue aggressively rhythm control approach. No other medications I indicated at this point in time. Signs and symptoms of heart failure were discussed. Follow up in the clinic every 3 months for EKG as required by FT in in 1 year with me after echocardiogram. Thank you for allowing me to partake in his care Orders: Orders CA echo transthoracic complete 50 Weeks I48.0 - Paroxysmal atrial fibrillation Medications: Discontinued rivaroxaban (Xarelto) Discontinued Reason: No Longer Medically Relevant 20 mg PO DAILY 30 tabs 5RF Coding Level of Care Code Est Pt Level 4 (44194) Diagnoses Paroxysmal atrial fibrillation I48.0 Cardiomyopathy I42.9 CPT Codes EKG - CPT: 06211-[id number], Complete ([id number])
[2023-01-26 14:46] VITALS: BP 138/80; PULSE 61; BMI 31.4
== END 2023-01-26 15:09 | disposition home or self-care (01) ==
PROVIDERS: PCP Internal Medicine; Visit Provider Internal Medicine Cardiovascular Disease
DX: I48.0 Paroxysmal atrial fibrillation (principal); I42.9 Cardiomyopathy, unspecified
CPT/HCPCS: 93010; 99214

== ENCOUNTER → 2023-01-26 14:37 | Outpatient (BNVA) | payer OTHER, SELFPAY | PROVIDERS: PCP Internal Medicine; Visit Provider Internal Medicine Cardiovascular Disease | DX: I48.0 Paroxysmal atrial fibrillation (principal); I42.9 Cardiomyopathy, unspecified; Z79.899 Other long term (current) drug therapy | CPT/HCPCS: 93005 ==

== ENCOUNTER 2023-07-27 14:47 | Outpatient (AMB) | payer OTHER, SELFPAY ==
--- NOTE | 2023-07-27 15:15 | MHC.OFFVIS ---
Intake Visit Reasons: EKG Intake Note: PT here for Nurse Visit with ekg PT is on Dronedarone 400 mg Ekg reviewed by Provider Allergies No Known Allergies Allergy (Verified 02/15/22 09:27) [facility] Medical History (Updated 01/26/23 @ 15:06 by Nikos Muniz MD) Cardiomyopathy Encounter for monitoring bridging anticoagulation therapy History of COVID-19 On anticoagulant therapy On beta salud at home BMI 36.0-36.9,adult Depressive disorder DJD (degenerative joint disease) Morbid obesity Elevated cholesterol HTN (hypertension) COVID-19 vaccine series completed Sleep apnea GERD (gastroesophageal reflux disease) Atrial fibrillation Surgical History Hx of laparoscopic partial gastrectomy Hx of knee surgery Hx of colonoscopy Hx of tonsillectomy S/P ablation of atrial fibrillation Social History Household Members: Family Household Members Other:: Mother Are you a primary home health aide caregiver to a significant other at home: Yes (Helps take care of his mother) Do you presently have visiting nurse or other home services: No Alcohol intake: current Alcohol intake frequency: a few times a month Comment: rates pain 3-4/10 Patient Tobacco Use Status: Never used Tobacco Second Hand Smoke Exposure: No Review of Systems Const Denies weakness ENT Denies dizziness Card Denies chest pain, Denies chest pain with activity, Denies syncope, Denies rapid heart rate, Denies pedal edema, Denies edema, Denies leg edema, Denies lightheadedness, Denies palpitations, Denies dyspnea, Denies dyspnea on exertion and Denies orthopnea Resp Denies cough, Denies dyspnea and Denies dyspnea on exertion GI Denies hematochezia and Denies change in stool character Musc Denies abnormal gait, Denies muscle cramps, Denies muscle weakness, Denies numbness, Denies radiating pain into limb and Denies tingling Neuro Denies abnormal gait, Denies dizziness, Denies syncope, Denies numbness, Denies tingling and Denies weakness Endo Denies palpitations Office Procedures EKG Details: EKG shows normal sinus rhythm [id number], Complete Assessment & Plan Assessment & Plan (1) Paroxysmal atrial fibrillation: Code(s): I48.0 - Paroxysmal atrial fibrillation Category: Medical Plan: See above Coding Level of Care Code Procedure Only Diagnoses Paroxysmal atrial fibrillation I48.0 CPT Codes EKG - CPT: 57015-[id number], Complete ([id number])
== END 2023-07-27 15:19 | disposition home or self-care (01) ==
PROVIDERS: PCP Internal Medicine; Visit Provider Internal Medicine Cardiovascular Disease
DX: I48.0 Paroxysmal atrial fibrillation (principal)
CPT/HCPCS: 93010

== ENCOUNTER → 2023-07-27 14:47 | Outpatient (BNVA) | payer OTHER, SELFPAY | PROVIDERS: PCP Internal Medicine; Visit Provider Internal Medicine Cardiovascular Disease | DX: I48.0 Paroxysmal atrial fibrillation (principal) | CPT/HCPCS: 93005 ==

== ENCOUNTER 2024-01-18 14:04 | Outpatient (AMB) | payer OTHER, SELFPAY ==
[2024-01-18 14:09] VITALS: BP 120/74; PULSE 63; BMI 31.1
--- NOTE | 2024-01-18 14:09 | MHC.OFFVIS ---
Vital Signs 01/18/24 14:09 Height 6 ft 2 in Weight 242 lb 8.136 oz BMI 31.1 BP 120/74 Blood Pressure Location Lt brachial Position Sitting Pulse 63 Intake Visit Reasons: 1 yr fu with ekg (echo sched for 02/01) Intake Note: 1 year follow-up with ekg has echo 02/01 feeling good Oil Heaterman Required: No Allergies No Known Allergies Allergy (Verified 02/15/22 09:27) Medication List - Last Reconciled 01/18/24 by Nikos Muniz MD dronedarone (Multaq) 400 mg PO BID 90 days HPI Comments Details: Keith comes for follow-up. He has been doing extremely well. He has been managing to keep his weight off. He has not had any recurrent atrial fibrillation. No prolonged palpitation irregular heartbeat. Uses medications regularly. No worsening shortness of breath, orthopnea, PND, leg edema. No lightheadedness, syncope. Uses CPAP PFSH Medical History Cardiomyopathy Encounter for monitoring bridging anticoagulation therapy History of COVID-19 On anticoagulant therapy On beta salud at home BMI 36.0-36.9,adult Depressive disorder DJD (degenerative joint disease) Morbid obesity Elevated cholesterol HTN (hypertension) COVID-19 vaccine series completed Sleep apnea GERD (gastroesophageal reflux disease) Atrial fibrillation Surgical History Hx of laparoscopic partial gastrectomy Hx of knee surgery Hx of colonoscopy Hx of tonsillectomy S/P ablation of atrial fibrillation Social History Household Members: Family Household Members Other:: Mother Are you a primary animal care giver to a significant other at home: Yes (Helps take care of his mother) Do you presently have visiting nurse or other home services: No Alcohol intake: current Alcohol intake frequency: a few times a month Comment: rates pain 3-4/10 Patient Tobacco Use Status: Never used Tobacco Second Hand Smoke Exposure: No Review of Systems Const Denies chills, Denies fatigue, Denies fever(s), Denies frequent falls, Denies weakness, Denies weight gain and Denies weight loss ENT Denies dizziness Card Denies chest pain, Denies leg edema, Denies lightheadedness, Denies palpitations, Denies dyspnea, Denies dyspnea on exertion, Denies orthopnea and Denies other (loss of consciousness) Resp Denies cough, Denies dyspnea and Denies dyspnea on exertion GI Denies hematochezia and Denies change in stool character Musc Denies abnormal gait, Denies muscle weakness, Denies numbness, Denies radiating pain into limb and Denies tingling Neuro Denies abnormal gait, Denies dizziness, Denies frequent falls, Denies numbness, Denies tingling and Denies weakness Endo Denies fatigue and Denies palpitations Physical Exam Vital Signs: Last Vital Signs Pulse 63 01/18/24 14:09 BP 120/74 01/18/24 14:09 BMI result Body Mass Index 31.1 Const General: cooperative, comfortable, no acute distress, alert, awake and well groomed Nutritional Appearance: average body habitus Orientation/consciousness: patient oriented x3 Neck Neck: Yes trachea midline, Yes supple and Yes no JVD Resp Effort & Inspection: normal respiratory effort Auscultation: clear to auscultation bilaterally Cardio Jugular venous distension: no JVD Rhythm: abnormal rhythm irregularly irregular Heart sounds: S1 normal heart sound present, S2 normal heart sound present, no click, no gallops and no murmurs GI Auscultation: normal bowel sounds Neuro General: patient oriented x3 and no focal motor deficits Extrem General: Yes no clubbing, cyanosis or edema Office Procedures EKG Details: EKG shows normal sinus rhythm with moderate voltage criteria for LVH otherwise normal EKG with normal intervals [id number], Complete Assessment & Plan Assessment & Plan (1) Paroxysmal atrial fibrillation: Code(s): I48.0 - Paroxysmal atrial fibrillation Category: Medical Plan: Highly symptomatic paroxysmal atrial fibrillation with also LV systolic dysfunction in atrial fibrillation. This has normalized since maintaining rhythm. He was doing extremely well with no symptoms. Continue aggressively rhythm control approach. Has tolerated dronedarone therapy and given his left atrial structural changes I think I would continue with antiarrhythmic drug therapy in the future. We can consider alternatives such as ablation. However he has done well and will continue the same. Follow-up EKGs every 3 months and follow up in the clinic in 1 year's time. Continue CPAP therapy. Continue participate in lifestyle modification. Avoidance of stimulants was discussed. There is no indication for oral anticoagulant therapy. Follow-up echocardiogram near future. Will follow-up every 3 months for EKG in 1 year with me. Thank you for allowing me to partake in his care Coding Level of Care Code Est Pt Level 4 (32584) Complex EM visit Add On G2211 Diagnoses Paroxysmal atrial fibrillation I48.0 CPT Codes EKG - CPT: 20939-Gacxhngbxgsmbpsof, Complete ([id number])
--- OUTSIDE RECORDS SUMMARY | 2024-01-24 03:02 | XMS_ITS ---
Author Organization [facility] Address [address] [place] [address] Care Team Providers Care Molded Frames Assembler Name Role Phone Kuldip Stephens Primary Care Provider OLMAN Beal Unavailable [phone] MEDICATIONS Medication SIG (Take, Route, Fr equency, Duration) Notes Start Date End Date Status Wegovy 1.7 MG/0.75ML 1.7mg Subcutaneous weekly for 30 days 11/09/2023 Active Encounters Encounter Location Date Provider Diagnosis [address] [facility] [address] [place] [address] 11/09/2023 OLMAN HOLLOWAY PLAN OF TREATMENT Medication Medication Name Sig Start Date Stop Date Notes Wegovy 1.7 MG/0.75ML 1.7mg Subcutaneous weekly for 30 days 11/09/2023 Next Appt Details Provider Name:ASPEN ALEJANDRE , 02/12/2024 02:00:00 PM, [address] [facility], [address], [place], [address], Progress Notes * Omar ALMANZADOB:1970 (53 yo M)Acc No.[id number]:11/09/2023 Patient:??ALMANZAKeith PEGUEROothy :1970?Age:53 Y?Sex:Michele aragon Address:[address] [place] [id number] * Refills?? Start Wegovy Solution Auto-injector, 1.7 MG/0.75ML, Subcutaneous, 4 Pen Needle, 1.7mg, weekly, 30 days, Refills=3 * true * Date:??
--- OUTSIDE RECORDS SUMMARY | 2024-01-24 03:02 | XMS_ITS | Patient Health Record ---
Author Organization [facility] Address [address] [place] [address] Care Team Providers Care Paint Mixer Name Role Phone Angelo Kuldip Primary Care Provider OLMAN Beal Unavailable [phone] ASPEN ALEJANDRE Unavailable [phone] ALLERGIES No Known Allergies REASON FOR REFERRAL No Information MEDICATIONS Medication SIG (Take, Route, Frequency, Duration) Notes Start Date End Date Status Wegovy 0.5 MG/0.5ML 0.5mg Subcutaneous w eekly for 30 days 10/01/2023 Not-Taking Wegovy 1 MG/0.5ML 1mg Subcutaneous wee kly for 30 days 10/02/2023 Not-Taking Ondansetron HCl 8 MG 1 tablet as needed Orally Once a day for 30 days 01/03/2024 Active Wegovy 0.5 MG/0.5ML Inject 0.5 mg Subcut aneous Once weekly for 28 days 11/09/2023 Active Multaq 400 MG 1 tablet with meals Orally Twice a day Active PROBLEMS Problem Type ICD Code Onset Dates Problem Status W/U Status Risk SNOMED Code Notes Problem Other obesity due to excess calories (E66.09) Active confirmed 581156204 Problem Essential (primary) hypertension (I10) Active confirmed 84199146 Problem Body mass index [BMI] 34.0-34.9, adult (Z68.34) Active confirmed 920350059 Problem BMI 33.0-33.9,adult (Z68.33) Active confirmed 456686127 Problem BMI 32.0-32.9,adult (Z68.32) Active confirmed 733825994 Problem Adult-onset obesity (E66.9) Active confirmed 309061920 Problem PAF (paroxysmal atrial fibrillation) (I48.0) Active confirmed 536971715 Problem H/O gastric sleeve (Z90.3) Active confirmed 926150720075483 Problem ROLO on CPAP (G47.33) Active confirmed 79487143 VITAL SIGNS Heart Rate 62 /min 01/03/2024 Oximetry 98 % 01/03/2024 Blood pressure diastolic 78 mm Hg 01/03/2024 Height 72 in 01/03/2024 Blood pressure systolic 124 mm Hg 01/03/2024 Weight 241 lbs 01/03/2024 BMI 32.68 kg/m2 01/03/2024 Encounters Encounter Location Date Provider Diagnosis [place] [id number] [address] 11/01/2023 OLMAN HOLLOWAY [place] [address] 08/30/2023 OLMAN HOLLOWAY Dietary counseling a nd surveillance Z71.3 ; Other obesity due to excess calories E66.09 ; Body mass index [BMI] 34.0-34.9, adult Z68.34 ; PAF (paroxysmal atrial fibrillation) I48.0 ; Essential (primary) hypertension I10 ; H/O gastric sleeve Z90.3 and ROLO on CPAP G47.33 [place] [address] 11/07/2023 OLMAN HOLLOWAY BMI 33.0-33.9,adult Z68.33 ; Dietary counseling and surveillance Z71.3 ; Other obesity due to excess calories E66.09 ; PAF (paroxysmal atrial fibrillation) I48.0 ; Essential (primary) hypertension I10 ; H/O gastric sleeve Z90.3 and ROLO on CPAP G47.33 [facility] [address] 12/05/2023 ASPEN ALEJANDRE Adult-onset obesity E66.9 ; BMI 32.0-32.9,adult Z68.32 ; H/O gastric sleeve Z90.3 ; PAF (paroxysmal atrial fibrillation) I48.0 and Essential (primary) hypertension I10 [place] [address] [address] 01/03/2024 ASPEN ALEJANDRE BMI 32.0-32.9,adult Z68.32 ; Adult-onset obesity E66.9 ; H/O gastric sleeve Z90.3 ; PAF (paroxysmal atrial fibrillation) I48.0 ; Essential (primary) hypertension I10 and Nausea R11.[address] [facility] [address] [place] [address] 09/15/2023 OLMAN KU Other obesity due to excess calories E66.[address] [facility] [address] [facility] [address] [place], [place] 09/15/2023 OLMAN BORHO Other obesity due to excess calories E66.[address] [facility] [address] [facility] [address] [place] [address] 10/01/[address] [facility] [address] [place] [address] 10/02/2023 OLMAN BORHO [address] [facility] [address] [place] [address] 11/09/[address] [facility] [address] [facility] [address] [facility] [address] [place] [address] 09/06/2023 [facility] En[facility] Date Diagnosis Assessment Notes Treatment Notes Treatment Clinical Notes Section Notes 08/30/2023 Dietary counseling and surveillance (ICD-10 - Z71.3) Start Wegovy 0.25 Total time spent today was 60 minutes of which greater than 50% was spent on coordinating and counseling Patient has been found to be obese with a BMI of (34). Patient has class (1) obesity. We are a board certified obesity and weight management practice Patient has trialed behavioral modification, dietary restrictions and exercise for a minimum of 6 months The most recent [place] Association of clinical endocrinologists and [place] [employer] of endocrinology guidelines recommend patients who have overweight BMI or obesity BMI, who also have metabolic syndrome, prediabetes, HLD, and other comorbidities or at risk of developing type 2 diabetes should aim for a weight loss goal of at least 10% of the baseline body weight Patient counseled regarding effects of GLP/GIP-1 agonists, and other FDA approved wgt loss meds with regards to a multifactorial approach of weight loss as mentioned above and not solely appetite suppression. We have discussed the mechanism of GLP-1's/GIP, dual incretins I think this would be fantastic option for her given her metabolic workup and body composition We have discussed the risks and benefits and side effects including/and not limited to Sarcopenia, intestinal obstruction, constipation, nausea, lethargy, headache Discussed importance of protein consumption for muscle maintenance as well as strength and resistance training ,probiotics, B12 complex biotin , iron and other nutrients, To help avoid telogen effluvium There is no history of medullary thyroid cancer or multiple endocrine neoplasia There is also no history of cardiovascular disease, hypertension, palpitations, or arrhythmias In the setting of potential stimulant/amphetamine use such as phentermine We have also discussed risks and benefits, and the use of compounded medications to help offset the national shortages as well as financial implications vs trade name drugs GLP must be discontinued upon initiation We have discussed the lifelong requirement of nutritional supplementation And adherence to an exercise regimen as well as importance We did discuss the neurohormonal changes that are occurring with these medications and Need for long-term Continued usage The patient understands and agrees Patient was reassured and welcomed to the practice. We discussed that we stress a hollistic medical approach with emphasis on lifestyle modification. Patient was informed that a healthy lifestyle with exercise and good eating habits can help reduce his risk of medical complications. He is explained that obesity increases his risk of diabetes, cardiovascular disease, or organ damage. We spent a lot of time discussing the relationship between food, exercise, sleep, mental health and obesity. Patient was counseled on the importance EATING local, organic food when possible. Patient was educated on clean 15 and dirty dozen. I provided information about reading books called The Food Rules by Venkat Osborne and Eat Fat Get Lean by Dr Cedric Andre. Self education is important in the journey for weight management. Patient was offered diagnostic testing. We want to measure visceral adiposity, advanced body composition, adverse lipids, fatty acid balance, risk for heart disease and atherosclerosis, markers of inflammation and genetic susceptibility. Patient was counseled on weight management and was advised to lose weight using A. Meal Replacement Products We discussed the lifelong requirement of nutritional supplementation and adherence to an exercise regimen as well as importance of dietary f/u Patient was educated on the replacement products called optifast. This is a good way of taking fixed amount of calories. It has been shown in studies to be ineffective weight management tool. We also recommend maintaining adequate protein intake and muscle composition, 1.5mg/kg This however has to be coupled with lifestyle intervention as well as laboratory data and EKG monitoring. It is impossible to know how a person will tolerate complete meal replacement. The side effects of meal replacement and weight loss could include syncopal attacks, dizziness, gallstones, potential cholecystectomy, possible heart attack and even . The benefits of meal replacement would be potential weight loss but no guarantees can be made. Meal replacement products are not covered by insurance. Once the patient has bought these products we cannot return them B. Lifestyle management which includes several strategies as below 1. Eat a low carbohydrate good fat good protein diet. Eliminate refined carbohydrates from the diet. Continue blood sugar and sugared beverages. Eat local organic when possible. Cook your own meals. Read food labels. None about healthy snacks. Portion control and food with low glycemic index 2. Exercise regularly. Try to get at least 6000 steps a day. Use a predominant to track activity level. Consider using apps like [employer], [employer], lose it, stick as needed for self-monitoring and weight management. Consider group exercises. Consider hiring a hardboard supervisor. Regular exercise is [place] to sustainable health and prevents as a buffer against weight regain 3. Sleep is most important for healing. Tried to sleep at least 8 hours a night. A good quality sleep needs a sleep ritual with ideal room temperature of around 68. It might help to take a shower and have no electronics in the room and sleep in a very dark room without artificial light. Start her sleep routine and get up early in the morning and go to bed on time 4. Make a social connection. Surround yourself with positive people with positive energy. Connect with friends and family. 5. Get into the habit of meditating and mindfulness while doing everything. 6. Go outside and connect with nature. C. Prescription medications Patient was educated on the use of prescription medications for medical weight loss. This is a growing list and includes phentermine, Topamax,Qsymia, contrave, belviq and saxenda, wegovy All prescription medications could have side effects including but not limited to kidney stones, seizure disorder cardiac arrhythmias heart attack pancreatitis etc. etc.. Patient was encouraged to read the prescription insert and have coaching with their pharmacist and make an informed decision about taking medication and know that these medications are being prescribed with good intentions and we do not know how a patient would react to her medication. Sudden medications are FDA approved for weight loss and there is also off label use depending on patient's inability to afford medications in an attempt to lose weight D. Behavioral counseling was done to establish a relationship between food and an mood. Patient was provided information about local counseling and psychiatry and Dr Hernandez at [facility]. We would like to cover regular topics and build on low glycemic eating exercise mindful eating, using yoga and meditation along with deep breathing and connecting with friends and family. E. MASS PAT reviewed, Patient's current medications were reviewed and opinion was given on medication that can cause weight gain and can be substituted F. Patient was assessed for risk with obesity including and not limiting to atherosclerosis heart disease stroke kidney disease, restrictive lung disease, irritable bowel syndrome and overall mortality. Risk of developing prediabetes diabetes and metabolic syndrome was discussed G. Therapeutic plan: We have decided to make therapeutic plan which would include choosing wisely on calories restricting portion getting active, tracking weight, getting good quality sleep and working on time management H. Patient will follow up in (4) weeks for weight management Of note, some information is being carried forward from prior records for informational purposes only and is being cited so that efficiency, safety and quality of the patient's care is not compromised This note was prepared using voice recognition software and direct typing Please excuse inadvertent cattle and wheat farmer or typing errors, or uncorrected word substitutions Although every attempt has been made by the provider to proofread this document, occasional misspellings and typographical errors may still be present Due to the previous pandemic, and the use of personal protective equipment (PPE) This may decrease voice recognition accuracy Inadvertent cattle and wheat farmer errors may occur 09/15/2023 Other obesity due to excess calories (ICD-10 - E66.09) 09/15/2023 Other obesity due to excess calories (ICD-10 - E66.09) 11/07/2023 BMI 33.0-33.9,adult (ICD-10 - Z68.33) #Weight Management 11/07/2023 Increase Wegovy to 0.5 with options up to 1 as well Total time spent today was 30 minutes of which greater than 50% was spent on coordinating and counseling Patient has been found to be obese with a BMI of (33). Patient has class (1) obesity. We are a board certified obesity and weight management practice Patient has trialed behavioral modification, dietary restrictions and exercise for a minimum of 6 months The most recent [place] Association of clinical endocrinologists and [place] [employer] of endocrinology guidelines recommend patients who have overweight BMI or obesity BMI, who also have metabolic syndrome, prediabetes, HLD, and other comorbidities or at risk of developing type 2 diabetes should aim for a weight loss goal of at least 10% of the baseline body weight Patient counseled regarding effects of GLP/GIP-1 agonists, and other FDA approved wgt loss meds with regards to a multifactorial approach of weight loss as mentioned above and not solely appetite suppression. We have discussed the mechanism of GLP-1's/GIP, dual incretins I think this would be fantastic option for her given her metabolic workup and body composition We have discussed the risks and benefits and side effects including/and not limited to Sarcopenia, intestinal obstruction, constipation, nausea, lethargy, headache Discussed importance of protein consumption for muscle maintenance as well as strength and resistance training ,probiotics, B12 complex biotin , iron and other nutrients, To help avoid telogen effluvium There is no history of medullary thyroid cancer or multiple endocrine neoplasia There is also no history of cardiovascular disease, hypertension, palpitations, or arrhythmias In the setting of potential stimulant/amphetamine use such as phentermine We have also discussed risks and benefits, and the use of compounded medications to help offset the national shortages as well as financial implications vs trade name drugs GLP must be discontinued upon initiation We have discussed the lifelong requirement of nutritional supplementation And adherence to an exercise regimen as well as importance We did discuss the neurohormonal changes that are occurring with these medications and Need for long-term Continued usage The patient understands and agrees Patient was reassured and welcomed to the practice. We discussed that we stress a hollistic medical approach with emphasis on lifestyle modification. Patient was informed that a healthy lifestyle with exercise and good eating habits can help reduce his risk of medical complications. He is explained that obesity increases his risk of diabetes, cardiovascular disease, or organ damage. We spent a lot of time discussing the relationship between food, exercise, sleep, mental health and obesity. Patient was counseled on the importance EATING local, organic food when possible. Patient was educated on clean 15 and dirty dozen. I provided information about reading books called The Food Rules by Venkat Osborne and Eat Fat Get Lean by Dr Cedric Andre. Self education is important in the journey for weight management. Patient was offered diagnostic testing. We want to measure visceral adiposity, advanced body composition, adverse lipids, fatty acid balance, risk for heart disease and atherosclerosis, markers of inflammation and genetic susceptibility. Patient was counseled on weight management and was advised to lose weight using A. Meal Replacement Products We discussed the lifelong requirement of nutritional supplementation and adherence to an exercise regimen as well as importance of dietary f/u Patient was educated on the replacement products called optifast. This is a good way of taking fixed amount of calories. It has been shown in studies to be ineffective weight management tool. We also recommend maintaining adequate protein intake and muscle composition, 1.5mg/kg This however has to be coupled with lifestyle intervention as well as laboratory data and EKG monitoring. It is impossible to know how a person will tolerate complete meal replacement. The side effects of meal replacement and weight loss could include syncopal attacks, dizziness, gallstones, potential cholecystectomy, possible heart attack and even . The benefits of meal replacement would be potential weight loss but no guarantees can be made. Meal replacement products are not covered by insurance. Once the patient has bought these products we cannot return them B. Lifestyle management which includes several strategies as below 1. Eat a low carbohydrate good fat good protein diet. Eliminate refined carbohydrates from the diet. Continue blood sugar and sugared beverages. Eat local organic when possible. Cook your own meals. Read food labels. None about healthy snacks. Portion control and food with low glycemic index 2. Exercise regularly. Try to get at least 6000 steps a day. Use a predominant to track activity level. Consider using apps like [employer], [employer], lose it, stick as needed for self-monitoring and weight management. Consider group exercises. Consider hiring a hardboard supervisor. Regular exercise is [place] to sustainable health and prevents as a buffer against weight regain 3. Sleep is most important for healing. Tried to sleep at least 8 hours a night. A good quality sleep needs a sleep ritual with ideal room temperature of around 68. It might help to take a shower and have no electronics in the room and sleep in a very dark room without artificial light. Start her sleep routine and get up early in the morning and go to bed on time 4. Make a social connection. Surround yourself with positive people with positive energy. Connect with friends and family. 5. Get into the habit of meditating and mindfulness while doing everything. 6. Go outside and connect with nature. C. Prescription medications Patient was educated on the use of prescription medications for medical weight loss. This is a growing list and includes phentermine, Topamax,Qsymia, contrave, belviq and saxenda, wegovy All prescription medications could have side effects including but not limited to kidney stones, seizure disorder cardiac arrhythmias heart attack pancreatitis etc. etc.. Patient was encouraged to read the prescription insert and have coaching with their pharmacist and make an informed decision about taking medication and know that these medications are being prescribed with good intentions and we do not know how a patient would react to her medication. Sudden medications are FDA approved for weight loss and there is also off label use depending on patient's inability to afford medications in an attempt to lose weight D. Behavioral counseling was done to establish a relationship between food and an mood. Patient was provided information about local counseling and psychiatry and Dr Hernandez at [facility]. We would like to cover regular topics and build on low glycemic eating exercise mindful eating, using yoga and meditation along with deep breathing and connecting with friends and family. E. MASS PAT reviewed, Patient's current medications were reviewed and opinion was given on medication that can cause weight gain and can be substituted F. Patient was assessed for risk with obesity including and not limiting to atherosclerosis heart disease stroke kidney disease, restrictive lung disease, irritable bowel syndrome and overall mortality. Risk of developing prediabetes diabetes and metabolic syndrome was discussed G. Therapeutic plan: We have decided to make therapeutic plan which would include choosing wisely on calories restricting portion getting active, tracking weight, getting good quality sleep and working on time management H. Patient will follow up in (4) weeks for weight management Of note, some information is being carried forward from prior records for informational purposes only and is being cited so that efficiency, safety and quality of the patient's care is not compromised This note was prepared using voice recognition software and direct typing Please excuse inadvertent cattle and wheat farmer or typing errors, or uncorrected word substitutions Although every attempt has been made by the provider to proofread this document, occasional misspellings and typographical errors may still be present Due to the previous pandemic, and the use of personal protective equipment (PPE) This may decrease voice recognition accuracy Inadvertent cattle and wheat farmer errors may occur 08/30/2023 Other obesity due to excess calories (ICD-10 - E66.09) Start Wegovy 0.25 Total time spent today was 60 minutes of which greater than 50% was spent on coordinating and counseling Patient has been found to be obese with a BMI of (34). Patient has class (1) obesity. We are a board certified obesity and weight management practice Patient has trialed behavioral modification, dietary restrictions and exercise for a minimum of 6 months The most recent [place] Association of clinical endocrinologists and [place] College of endocrinology guidelines recommend patients who have overweight BMI or obesity BMI, who also have metabolic syndrome, prediabetes, HLD, and other comorbidities or at risk of developing type 2 diabetes should aim for a weight loss goal of at least 10% of the baseline body weight Patient counseled regarding effects of GLP/GIP-1 agonists, and other FDA approved wgt loss meds with regards to a multifactorial approach of weight loss as mentioned above and not solely appetite suppression. We have discussed the mechanism of GLP-1's/GIP, dual incretins I think this would be fantastic option for her given her metabolic workup and body composition We have discussed the risks and benefits and side effects including/and not limited to Sarcopenia, intestinal obstruction, constipation, nausea, lethargy, headache Discussed importance of protein consumption for muscle maintenance as well as strength and resistance training ,probiotics, B12 complex biotin , iron and other nutrients, To help avoid telogen effluvium There is no history of medullary thyroid cancer or multiple endocrine neoplasia There is also no history of cardiovascular disease, hypertension, palpitations, or arrhythmias In the setting of potential stimulant/amphetamine use such as phentermine We have also discussed risks and benefits, and the use of compounded medications to help offset the national shortages as well as financial implications vs trade name drugs GLP must be discontinued upon initiation We have discussed the lifelong requirement of nutritional supplementation And adherence to an exercise regimen as well as importance We did discuss the neurohormonal changes that are occurring with these medications and Need for long-term Continued usage The patient understands and agrees Patient was reassured and welcomed to the practice. We discussed that we stress a hollistic medical approach with emphasis on lifestyle modification. Patient was informed that a healthy lifestyle with exercise and good eating habits can help reduce his risk of medical complications. He is explained that obesity increases his risk of diabetes, cardiovascular disease, or organ damage. We spent a lot of time discussing the relationship between food, exercise, sleep, mental health and obesity. Patient was counseled on the importance EATING local, organic food when possible. Patient was educated on clean 15 and dirty dozen. I provided information about reading books called The Food Rules by Venkat Osborne and Eat Fat Get Lean by Dr Cedric Andre. Self education is important in the journey for weight management. Patient was offered diagnostic testing. We want to measure visceral adiposity, advanced body composition, adverse lipids, fatty acid balance, risk for heart disease and atherosclerosis, markers of inflammation and genetic susceptibility. Patient was counseled on weight management and was advised to lose weight using A. Meal Replacement Products We discussed the lifelong requirement of nutritional supplementation and adherence to an exercise regimen as well as importance of dietary f/u Patient was educated on the replacement products called optifast. This is a good way of taking fixed amount of calories. It has been shown in studies to be ineffective weight management tool. We also recommend maintaining adequate protein intake and muscle composition, 1.5mg/kg This however has to be coupled with lifestyle intervention as well as laboratory data and EKG monitoring. It is impossible to know how a person will tolerate complete meal replacement. The side effects of meal replacement and weight loss could include syncopal attacks, dizziness, gallstones, potential cholecystectomy, possible heart attack and even . The benefits of meal replacement would be potential weight loss but no guarantees can be made. Meal replacement products are not covered by insurance. Once the patient has bought these products we cannot return them B. Lifestyle management which includes several strategies as below 1. Eat a low carbohydrate good fat good protein diet. Eliminate refined carbohydrates from the diet. Continue blood sugar and sugared beverages. Eat local organic when possible. Cook your own meals. Read food labels. None about healthy snacks. Portion control and food with low glycemic index 2. Exercise regularly. Try to get at least 6000 steps a day. Use a predominant to track activity level. Consider using apps like [employer], myfitnesspal, lose it, stick as needed for self-monitoring and weight management. Consider group exercises. Consider hiring a hardboard supervisor. Regular exercise is [place] to sustainable health and prevents as a buffer against weight regain 3. Sleep is most important for healing. Tried to sleep at least 8 hours a night. A good quality sleep needs a sleep ritual with ideal room temperature of around 68. It might help to take a shower and have no electronics in the room and sleep in a very dark room without artificial light. Start her sleep routine and get up early in the morning and go to bed on time 4. Make a social connection. Surround yourself with positive people with positive energy. Connect with friends and family. 5. Get into the habit of meditating and mindfulness while doing everything. 6. Go outside and connect with nature. C. Prescription medications Patient was educated on the use of prescription medications for medical weight loss. This is a growing list and includes phentermine, Topamax,Qsymia, contrave, belviq and saxenda, wegovy All prescription medications could have side effects including but not limited to kidney stones, seizure disorder cardiac arrhythmias heart attack pancreatitis etc. etc.. Patient was encouraged to read the prescription insert and have coaching with their pharmacist and make an informed decision about taking medication and know that these medications are being prescribed with good intentions and we do not know how a patient would react to her medication. Sudden medications are FDA approved for weight loss and there is also off label use depending on patient's inability to afford medications in an attempt to lose weight D. Behavioral counseling was done to establish a relationship between food and an mood. Patient was provided information about local counseling and psychiatry and Dr Hernandez at [facility]. We would like to cover regular topics and build on low glycemic eating exercise mindful eating, using yoga and meditation along with deep breathing and connecting with friends and family. E. MASS PAT reviewed, Patient's current medications were reviewed and opinion was given on medication that can cause weight gain and can be substituted F. Patient was assessed for risk with obesity including and not limiting to atherosclerosis heart disease stroke kidney disease, restrictive lung disease, irritable bowel syndrome and overall mortality. Risk of developing prediabetes diabetes and metabolic syndrome was discussed G. Therapeutic plan: We have decided to make therapeutic plan which would include choosing wisely on calories restricting portion getting active, tracking weight, getting good quality sleep and working on time management H. Patient will follow up in (4) weeks for weight management Of note, some information is being carried forward from prior records for informational purposes only and is being cited so that efficiency, safety and quality of the patient's care is not compromised This note was prepared using voice recognition software and direct typing Please excuse inadvertent cattle and wheat farmer or typing errors, or uncorrected word substitutions Although every attempt has been made by the provider to proofread this document, occasional misspellings and typographical errors may still be present Due to the previous pandemic, and the use of personal protective equipment (PPE) This may decrease voice recognition accuracy Inadvertent cattle and wheat farmer errors may occur 12/05/2023 BMI 32.0-32.9,adult (ICD-10 - Z68.32) Patient is here for weight management follow-up. We focused on significance of healthy lifestyle changes. We talked about need to track steps with goal between 6000-10,000 steps daily, focus on portion control, read food labels, get adequate sleep between 7 to 8 hours, get adequate rest to the body, meditate, frequent nutritious meals including vegetables and healthy choices of lean meats, fish, and elimination of refined carbohydrates. We also talked about mindfulness and mindful eating. Particular focus was on continuing to improve diet with high-protein and a variety of fruits and vegetables and maintain good portion control. Total time spent with 30 minutes with greater than 50% spent on counseling and coordinating care. 12/05/2023: Weight 242 pounds, BMI 32.82. Seca scan unable to be completed today due to equipment error. Patient demonstrates understanding. He is down 2 pounds from last visit which she was congratulated for. At previous visit discussed going up to 1 mg of Wegovy, patient states he has had trouble accessing this dose at the pharmacy, has been able to access 1.7 mg which she is using however has been dividing the dose to achieve 1 mg. Has been walking for exercise and golfing. Reports good portion control. Will continue Wegovy at this time. Educated on proper use of medication and expected side effect profile including but not limited to nausea, constipation, abdominal pain, vomiting, or acid reflux. He will follow-up in the office in approximately 4 weeks for weight management. # Atrial fibrillation: Patient is asymptomatic in office today without chest pain, shortness of breath, dyspnea on exertion, or diaphoresis. Continue Multaq 400 mg twice daily with meals. Cardiopulmonary exam unremarkable today in office. Will continue to monitor. Please follow-up with PCP. All questions have been answered to patient's satisfaction. Patient verbalized understanding of diagnosis and treatments explained. Advised to call sooner prior to next visit it any questions/concerns arise. Case discussed with collaborating physician Diego Guerrero who reviewed the assessment and plan. Chart, medications, labs, vital signs reviewed. Dictation was accomplished with the use of [employer] voice recognition software, which is prone to medical misidentifications and grammatical errors. This are unintentional and the practitioner does try to identify and correct these, but some could still be present. Please do not hesitate to contact practitioner for clarification. 12/05/2023 Adult-onset obesity (ICD-10 - E66.9) Patient is here for weight management follow-up. We focused on significance of healthy lifestyle changes. We talked about need to track steps with goal between 6000-10,000 steps daily, focus on portion control, read food labels, get adequate sleep between 7 to 8 hours, get adequate rest to the body, meditate, frequent nutritious meals including vegetables and healthy choices of lean meats, fish, and elimination of refined carbohydrates. We also talked about mindfulness and mindful eating. Particular focus was on continuing to improve diet with high-protein and a variety of fruits and vegetables and maintain good portion control. Total time spent with 30 minutes with greater than 50% spent on counseling and coordinating care. 12/05/2023: Weight 242 pounds, BMI 32.82. Seca scan unable to be completed today due to equipment error. Patient demonstrates understanding. He is down 2 pounds from last visit which she was congratulated for. At previous visit discussed going up to 1 mg of Wegovy, patient states he has had trouble accessing this dose at the pharmacy, has been able to access 1.7 mg which she is using however has been dividing the dose to achieve 1 mg. Has been walking for exercise and golfing. Reports good portion control. Will continue Wegovy at this time. Educated on proper use of medication and expected side effect profile including but not limited to nausea, constipation, abdominal pain, vomiting, or acid reflux. He will follow-up in the office in approximately 4 weeks for weight management. # Atrial fibrillation: Patient is asymptomatic in office today without chest pain, shortness of breath, dyspnea on exertion, or diaphoresis. Continue Multaq 400 mg twice daily with meals. Cardiopulmonary exam unremarkable today in office. Will continue to monitor. Please follow-up with PCP. All questions have been answered to patient's satisfaction. Patient verbalized understanding of diagnosis and treatments explained. Advised to call sooner prior to next visit it any questions/concerns arise. Case discussed with collaborating physician Diego Guerrero who reviewed the assessment and plan. Chart, medications, labs, vital signs reviewed. Dictation was accomplished with the use of [employer] voice recognition software, which is prone to medical misidentifications and grammatical errors. This are unintentional and the practitioner does try to identify and correct these, but some could still be present. Please do not hesitate to contact practitioner for clarification. 01/03/2024 BMI 32.0-32.9,adult (ICD-10 - Z68.32) Patient is here for weight management follow-up. We focused on significance of healthy lifestyle changes. We talked about need to track steps with goal between 6000-10,000 steps daily, focus on portion control, read food labels, get adequate sleep between 7 to 8 hours, get adequate rest to the body, meditate, frequent nutritious meals including vegetables and healthy choices of lean meats, fish, and elimination of refined carbohydrates. We also talked about mindfulness and mindful eating. Particular focus was on continuing to improve diet with high-protein and a variety of fruits and vegetables and maintain good portion control. Total time spent with 30 minutes with greater than 50% spent on counseling and coordinating care. 12/05/2023: Weight 242 pounds, BMI 32.82. Seca scan unable to be completed today due to equipment error. Patient demonstrates understanding. He is down 2 pounds from last visit which she was congratulated for. At previous visit discussed going up to 1 mg of Wegovy, patient states he has had trouble accessing this dose at the pharmacy, has been able to access 1.7 mg which she is using however has been dividing the dose to achieve 1 mg. Has been walking for exercise and golfing. Reports good portion control. Will continue Wegovy at this time. Educated on proper use of medication and expected side effect profile including but not limited to nausea, constipation, abdominal pain, vomiting, or acid reflux. He will follow-up in the office in approximately 4 weeks for weight management. 01/03/24: Weight 241 pounds, BMI 32.68. SECA scan completed interpreted with the patient. Between today and October the patient has lost 5 pounds of body fat. Maintaining approximately 80 pounds of muscle mass. Visceral adipose tissue index is still high. He is currently prescribed Wegovy 0.5 mg however states that his pharmacy does not have access to this dose and he has been receiving 1.7 mg. He has been trying to half the dose in order to mimic 0.5 mg. We discussed the importance of getting him a prescription of 0.5 mg of Wegovy for better control of the medication. Patient agrees. Also reports increased nausea in the past several days as well as shoulder pain. We discussed that joint pain may be a side effect of GLP-1 agonist. Also plans to increase his physical activity levels. Will send refill of Wegovy 0.5 mg once weekly to the pharmacy. Discussed proper use of the medication including rotating injection sites and expected side effect profile. Will also send Zofran to be used as needed for nausea. He will follow-up in the office in approximately 4 weeks for weight management. All patient questions answered at this time. # Atrial fibrillation: Patient is asymptomatic in office today without chest pain, shortness of breath, dyspnea on exertion, or diaphoresis. Continue Multaq 400 mg twice daily with meals. Cardiopulmonary exam unremarkable today in office. Will continue to monitor. Please follow-up with PCP. # Hypertension: Blood pressure stable in office today 124/78. Discussed red flag signs of hypertension including but not limited to headache, blurry vision, chest pain, abdominal pain, difficulty breathing, dizziness, or weakness. Will continue to monitor. All questions have been answered to patient's satisfaction. Patient verbalized understanding of diagnosis and treatments explained. Advised to call sooner prior to next visit it any questions/concerns arise. Case discussed with collaborating physician Diego Guerrero who reviewed the assessment and plan. Chart, medications, labs, vital signs reviewed. Dictation was accomplished with the use of [employer] voice recognition software, which is prone to medical misidentifications and grammatical errors. This are unintentional and the practitioner does try to identify and correct these, but some could still be present. Please do not hesitate to contact practitioner for clarification. 01/03/2024 Adult-onset obesity (ICD-10 - E66.9) Patient is here for weight management follow-up. We focused on significance of healthy lifestyle changes. We talked about need to track steps with goal between 6000-10,000 steps daily, focus on portion control, read food labels, get adequate sleep between 7 to 8 hours, get adequate rest to the body, meditate, frequent nutritious meals including vegetables and healthy choices of lean meats, fish, and elimination of refined carbohydrates. We also talked about mindfulness and mindful eating. Particular focus was on continuing to improve diet with high-protein and a variety of fruits and vegetables and maintain good portion control. Total time spent with 30 minutes with greater than 50% spent on counseling and coordinating care. 12/05/2023: Weight 242 pounds, BMI 32.82. Seca scan unable to be completed today due to equipment error. Patient demonstrates understanding. He is down 2 pounds from last visit which she was congratulated for. At previous visit discussed going up to 1 mg of Wegovy, patient states he has had trouble accessing this dose at the pharmacy, has been able to access 1.7 mg which she is using however has been dividing the dose to achieve 1 mg. Has been walking for exercise and golfing. Reports good portion control. Will continue Wegovy at this time. Educated on proper use of medication and expected side effect profile including but not limited to nausea, constipation, abdominal pain, vomiting, or acid reflux. He will follow-up in the office in approximately 4 weeks for weight management. 01/03/24: Weight 241 pounds, BMI 32.68. SECA scan completed interpreted with the patient. Between today and October the patient has lost 5 pounds of body fat. Maintaining approximately 80 pounds of muscle mass. Visceral adipose tissue index is still high. He is currently prescribed Wegovy 0.5 mg however states that his pharmacy does not have access to this dose and he has been receiving 1.7 mg. He has been trying to half the dose in order to mimic 0.5 mg. We discussed the importance of getting him a prescription of 0.5 mg of Wegovy for better control of the medication. Patient agrees. Also reports increased nausea in the past several days as well as shoulder pain. We discussed that joint pain may be a side effect of GLP-1 agonist. Also plans to increase his physical activity levels. Will send refill of Wegovy 0.5 mg once weekly to the pharmacy. Discussed proper use of the medication including rotating injection sites and expected side effect profile. Will also send Zofran to be used as needed for nausea. He will follow-up in the office in approximately 4 weeks for weight management. All patient questions answered at this time. # Atrial fibrillation: Patient is asymptomatic in office today without chest pain, shortness of breath, dyspnea on exertion, or diaphoresis. Continue Multaq 400 mg twice daily with meals. Cardiopulmonary exam unremarkable today in office. Will continue to monitor. Please follow-up with PCP. # Hypertension: Blood pressure stable in office today 124/78. Discussed red flag signs of hypertension including but not limited to headache, blurry vision, chest pain, abdominal pain, difficulty breathing, dizziness, or weakness. Will continue to monitor. All questions have been answered to patient's satisfaction. Patient verbalized understanding of diagnosis and treatments explained. Advised to call sooner prior to next visit it any questions/concerns arise. Case discussed with collaborating physician Diego Guerrero who reviewed the assessment and plan. Chart, medications, labs, vital signs reviewed. Dictation was accomplished with the use of [employer] voice recognition software, which is prone to medical misidentifications and grammatical errors. This are unintentional and the practitioner does try to identify and correct these, but some could still be present. Please do not hesitate to contact practitioner for clarification. 12/05/2023 H/O gastric sleeve (ICD-10 - Z90.3) Patient is here for weight management follow-up. We focused on significance of healthy lifestyle changes. We talked about need to track steps with goal between 6000-10,000 steps daily, focus on portion control, read food labels, get adequate sleep between 7 to 8 hours, get adequate rest to the body, meditate, frequent nutritious meals including vegetables and healthy choices of lean meats, fish, and elimination of refined carbohydrates. We also talked about mindfulness and mindful eating. Particular focus was on continuing to improve diet with high-protein and a variety of fruits and vegetables and maintain good portion control. Total time spent with 30 minutes with greater than 50% spent on counseling and coordinating care. 12/05/2023: Weight 242 pounds, BMI 32.82. Seca scan unable to be completed today due to equipment error. Patient demonstrates understanding. He is down 2 pounds from last visit which she was congratulated for. At previous visit discussed going up to 1 mg of Wegovy, patient states he has had trouble accessing this dose at the pharmacy, has been able to access 1.7 mg which she is using however has been dividing the dose to achieve 1 mg. Has been walking for exercise and golfing. Reports good portion control. Will continue Wegovy at this time. Educated on proper use of medication and expected side effect profile including but not limited to nausea, constipation, abdominal pain, vomiting, or acid reflux. He will follow-up in the office in approximately 4 weeks for weight management. # Atrial fibrillation: Patient is asymptomatic in office today without chest pain, shortness of breath, dyspnea on exertion, or diaphoresis. Continue Multaq 400 mg twice daily with meals. Cardiopulmonary exam unremarkable today in office. Will continue to monitor. Please follow-up with PCP. All questions have been answered to patient's satisfaction. Patient verbalized understanding of diagnosis and treatments explained. Advised to call sooner prior to next visit it any questions/concerns arise. Case discussed with collaborating physician Diego Guerrero who reviewed the assessment and plan. Chart, medications, labs, vital signs reviewed. Dictation was accomplished with the use of [employer] voice recognition software, which is prone to medical misidentifications and grammatical errors. This are unintentional and the practitioner does try to identify and correct these, but some could still be present. Please do not hesitate to contact practitioner for clarification. 11/07/2023 Dietary counseling and surveillance (ICD-10 - Z71.3) #Weight Management 11/07/2023 Increase Wegovy to 0.5 with options up to 1 as well Total time spent today was 30 minutes of which greater than 50% was spent on coordinating and counseling Patient has been found to be obese with a BMI of (33). Patient has class (1) obesity. We are a board certified obesity and weight management practice Patient has trialed behavioral modification, dietary restrictions and exercise for a minimum of 6 months The most recent [place] [employer] of clinical endocrinologists and [place] [employer]in[employer] guidelines recommend patients who have overweight BMI or obesity BMI, who also have metabolic syndrome, prediabetes, HLD, and other comorbidities or at risk of developing type 2 diabetes should aim for a weight loss goal of at least 10% of the baseline body weight Patient counseled regarding effects of GLP/GIP-1 agonists, and other FDA approved wgt loss meds with regards to a multifactorial approach of weight loss as mentioned above and not solely appetite suppression. We have discussed the mechanism of GLP-1's/GIP, dual incretins I think this would be fantastic option for her given her metabolic workup and body composition We have discussed the risks and benefits and side effects including/and not limited to Sarcopenia, intestinal obstruction, constipation, nausea, lethargy, headache Discussed importance of protein consumption for muscle maintenance as well as strength and resistance training ,probiotics, B12 complex biotin , iron and other nutrients, To help avoid telogen effluvium There is no history of medullary thyroid cancer or multiple endocrine neoplasia There is also no history of cardiovascular disease, hypertension, palpitations, or arrhythmias In the setting of potential stimulant/amphetamine use such as phentermine We have also discussed risks and benefits, and the use of compounded medications to help offset the national shortages as well as financial implications vs trade name drugs GLP must be discontinued upon initiation We have discussed the lifelong requirement of nutritional supplementation And adherence to an exercise regimen as well as importance We did discuss the neurohormonal changes that are occurring with these medications and Need for long-term Continued usage The patient understands and agrees Patient was reassured and welcomed to the practice. We discussed that we stress a hollistic medical approach with emphasis on lifestyle modification. Patient was informed that a healthy lifestyle with exercise and good eating habits can help reduce his risk of medical complications. He is explained that obesity increases his risk of diabetes, cardiovascular disease, or organ damage. We spent a lot of time discussing the relationship between food, exercise, sleep, mental health and obesity. Patient was counseled on the importance EATING local, organic food when possible. Patient was educated on clean 15 and dirty dozen. I provided information about reading books called The Food Rules by Venkat Osborne and Eat Fat Get Lean by Dr Cedric Andre. Self education is important in the journey for weight management. Patient was offered diagnostic testing. We want to measure visceral adiposity, advanced body composition, adverse lipids, fatty acid balance, risk for heart disease and atherosclerosis, markers of inflammation and genetic susceptibility. Patient was counseled on weight management and was advised to lose weight using A. Meal Replacement Products We discussed the lifelong requirement of nutritional supplementation and adherence to an exercise regimen as well as importance of dietary f/u Patient was educated on the replacement products called optifast. This is a good way of taking fixed amount of calories. It has been shown in studies to be ineffective weight management tool. We also recommend maintaining adequate protein intake and muscle composition, 1.5mg/kg This however has to be coupled with lifestyle intervention as well as laboratory data and EKG monitoring. It is impossible to know how a person will tolerate complete meal replacement. The side effects of meal replacement and weight loss could include syncopal attacks, dizziness, gallstones, potential cholecystectomy, possible heart attack and even . The benefits of meal replacement would be potential weight loss but no guarantees can be made. Meal replacement products are not covered by insurance. Once the patient has bought these products we cannot return them B. Lifestyle management which includes several strategies as below 1. Eat a low carbohydrate good fat good protein diet. Eliminate refined carbohydrates from the diet. Continue blood sugar and sugared beverages. Eat local organic when possible. Cook your own meals. Read food labels. None about healthy snacks. Portion control and food with low glycemic index 2. Exercise regularly. Try to get at least 6000 steps a day. Use a predominant to track activity level. Consider using apps like [employer], [employer], lose it, stick as needed for self-monitoring and weight management. Consider group exercises. Consider hiring a hardboard supervisor. Regular exercise is [place] to sustainable health and prevents as a buffer against weight regain 3. Sleep is most important for healing. Tried to sleep at least 8 hours a night. A good quality sleep needs a sleep ritual with ideal room temperature of around 68. It might help to take a shower and have no electronics in the room and sleep in a very dark room without artificial light. Start her sleep routine and get up early in the morning and go to bed on time 4. Make a social connection. Surround yourself with positive people with positive energy. Connect with friends and family. 5. Get into the habit of meditating and mindfulness while doing everything. 6. Go outside and connect with nature. C. Prescription medications Patient was educated on the use of prescription medications for medical weight loss. This is a growing list and includes phentermine, Topamax,Qsymia, contrave, belviq and saxenda, wegovy All prescription medications could have side effects including but not limited to kidney stones, seizure disorder cardiac arrhythmias heart attack pancreatitis etc. etc.. Patient was encouraged to read the prescription insert and have coaching with their pharmacist and make an informed decision about taking medication and know that these medications are being prescribed with good intentions and we do not know how a patient would react to her medication. Sudden medications are FDA approved for weight loss and there is also off label use depending on patient's inability to afford medications in an attempt to lose weight D. Behavioral counseling was done to establish a relationship between food and an mood. Patient was provided information about local counseling and psychiatry and Dr Hernandez at [facility]. We would like to cover regular topics and build on low glycemic eating exercise mindful eating, using yoga and meditation along with deep breathing and connecting with friends and family. E. MASS PAT reviewed, Patient's current medications were reviewed and opinion was given on medication that can cause weight gain and can be substituted F. Patient was assessed for risk with obesity including and not limiting to atherosclerosis heart disease stroke kidney disease, restrictive lung disease, irritable bowel syndrome and overall mortality. Risk of developing prediabetes diabetes and metabolic syndrome was discussed G. Therapeutic plan: We have decided to make therapeutic plan which would include choosing wisely on calories restricting portion getting active, tracking weight, getting good quality sleep and working on time management H. Patient will follow up in (4) weeks for weight management Of note, some information is being carried forward from prior records for informational purposes only and is being cited so that efficiency, safety and quality of the patient's care is not compromised This note was prepared using voice recognition software and direct typing Please excuse inadvertent cattle and wheat farmer or typing errors, or uncorrected word substitutions Although every attempt has been made by the provider to proofread this document, occasional misspellings and typographical errors may still be present Due to the previous pandemic, and the use of personal protective equipment (PPE) This may decrease voice recognition accuracy Inadvertent cattle and wheat farmer errors may occur 11/07/2023 Other obesity due to excess calories (ICD-10 - E66.09) #Weight Management 11/07/2023 Increase Wegovy to 0.5 with options up to 1 as well Total time spent today was 30 minutes of which greater than 50% was spent on coordinating and counseling Patient has been found to be obese with a BMI of (33). Patient has class (1) obesity. We are a board certified obesity and weight management practice Patient has trialed behavioral modification, dietary restrictions and exercise for a minimum of 6 months The most recent [place] [employer] of clinical endocrinologists and [place] [employer] end[employer]in[employer] guidelines recommend patients who have overweight BMI or obesity BMI, who also have metabolic syndrome, prediabetes, HLD, and other comorbidities or at risk of developing type 2 diabetes should aim for a weight loss goal of at least 10% of the baseline body weight Patient counseled regarding effects of GLP/GIP-1 agonists, and other FDA approved wgt loss meds with regards to a multifactorial approach of weight loss as mentioned above and not solely appetite suppression. We have discussed the mechanism of GLP-1's/GIP, dual incretins I think this would be fantastic option for her given her metabolic workup and body composition We have discussed the risks and benefits and side effects including/and not limited to Sarcopenia, intestinal obstruction, constipation, nausea, lethargy, headache Discussed importance of protein consumption for muscle maintenance as well as strength and resistance training ,probiotics, B12 complex biotin , iron and other nutrients, To help avoid telogen effluvium There is no history of medullary thyroid cancer or multiple endocrine neoplasia There is also no history of cardiovascular disease, hypertension, palpitations, or arrhythmias In the setting of potential stimulant/amphetamine use such as phentermine We have also discussed risks and benefits, and the use of compounded medications to help offset the national shortages as well as financial implications vs trade name drugs GLP must be discontinued upon initiation We have discussed the lifelong requirement of nutritional supplementation And adherence to an exercise regimen as well as importance We did discuss the neurohormonal changes that are occurring with these medications and Need for long-term Continued usage The patient understands and agrees Patient was reassured and welcomed to the practice. We discussed that we stress a hollistic medical approach with emphasis on lifestyle modification. Patient was informed that a healthy lifestyle with exercise and good eating habits can help reduce his risk of medical complications. He is explained that obesity increases his risk of diabetes, cardiovascular disease, or organ damage. We spent a lot of time discussing the relationship between food, exercise, sleep, mental health and obesity. Patient was counseled on the importance EATING local, organic food when possible. Patient was educated on clean 15 and dirty dozen. I provided information about reading books called The Food Rules by Venkat Osborne and Eat Fat Get Lean by Dr Cedric Andre. Self education is important in the journey for weight management. Patient was offered diagnostic testing. We want to measure visceral adiposity, advanced body composition, adverse lipids, fatty acid balance, risk for heart disease and atherosclerosis, markers of inflammation and genetic susceptibility. Patient was counseled on weight management and was advised to lose weight using A. Meal Replacement Products We discussed the lifelong requirement of nutritional supplementation and adherence to an exercise regimen as well as importance of dietary f/u Patient was educated on the replacement products called optifast. This is a good way of taking fixed amount of calories. It has been shown in studies to be ineffective weight management tool. We also recommend maintaining adequate protein intake and muscle composition, 1.5mg/kg This however has to be coupled with lifestyle intervention as well as laboratory data and EKG monitoring. It is impossible to know how a person will tolerate complete meal replacement. The side effects of meal replacement and weight loss could include syncopal attacks, dizziness, gallstones, potential cholecystectomy, possible heart attack and even . The benefits of meal replacement would be potential weight loss but no guarantees can be made. Meal replacement products are not covered by insurance. Once the patient has bought these products we cannot return them B. Lifestyle management which includes several strategies as below 1. Eat a low carbohydrate good fat good protein diet. Eliminate refined carbohydrates from the diet. Continue blood sugar and sugared beverages. Eat local organic when possible. Cook your own meals. Read food labels. None about healthy snacks. Portion control and food with low glycemic index 2. Exercise regularly. Try to get at least 6000 steps a day. Use a predominant to track activity level. Consider using apps like [employer], [employer]pal, lose it, stick as needed for self-monitoring and weight management. Consider group exercises. Consider hiring a hardboard supervisor. Regular exercise is [place] to sustainable health and prevents as a buffer against weight regain 3. Sleep is most important for healing. Tried to sleep at least 8 hours a night. A good quality sleep needs a sleep ritual with ideal room temperature of around 68. It might help to take a shower and have no electronics in the room and sleep in a very dark room without artificial light. Start her sleep routine and get up early in the morning and go to bed on time 4. Make a social connection. Surround yourself with positive people with positive energy. Connect with friends and family. 5. Get into the habit of meditating and mindfulness while doing everything. 6. Go outside and connect with nature. C. Prescription medications Patient was educated on the use of prescription medications for medical weight loss. This is a growing list and includes phentermine, Topamax,Qsymia, contrave, belviq and saxenda, wegovy All prescription medications could have side effects including but not limited to kidney stones, seizure disorder cardiac arrhythmias heart attack pancreatitis etc. etc.. Patient was encouraged to read the prescription insert and have coaching with their pharmacist and make an informed decision about taking medication and know that these medications are being prescribed with good intentions and we do not know how a patient would react to her medication. Sudden medications are FDA approved for weight loss and there is also off label use depending on patient's inability to afford medications in an attempt to lose weight D. Behavioral counseling was done to establish a relationship between food and an mood. Patient was provided information about local counseling and psychiatry and Dr Hernandez at [facility]. We would like to cover regular topics and build on low glycemic eating exercise mindful eating, using yoga and meditation along with deep breathing and connecting with friends and family. E. MASS PAT reviewed, Patient's current medications were reviewed and opinion was given on medication that can cause weight gain and can be substituted F. Patient was assessed for risk with obesity including and not limiting to atherosclerosis heart disease stroke kidney disease, restrictive lung disease, irritable bowel syndrome and overall mortality. Risk of developing prediabetes diabetes and metabolic syndrome was discussed G. Therapeutic plan: We have decided to make therapeutic plan which would include choosing wisely on calories restricting portion getting active, tracking weight, getting good quality sleep and working on time management H. Patient will follow up in (4) weeks for weight management Of note, some information is being carried forward from prior records for informational purposes only and is being cited so that efficiency, safety and quality of the patient's care is not compromised This note was prepared using voice recognition software and direct typing Please excuse inadvertent cattle and wheat farmer or typing errors, or uncorrected word substitutions Although every attempt has been made by the provider to proofread this document, occasional misspellings and typographical errors may still be present Due to the previous pandemic, and the use of personal protective equipment (PPE) This may decrease voice recognition accuracy Inadvertent cattle and wheat farmer errors may occur 08/30/2023 Body mass index [BMI] 34.0-34.9, adult (ICD-10 - Z68.34) Start Wegovy 0.25 Total time spent today was 60 minutes of which greater than 50% was spent on coordinating and counseling Patient has been found to be obese with a BMI of (34). Patient has class (1) obesity. We are a board certified obesity and weight management practice Patient has trialed behavioral modification, dietary restrictions and exercise for a minimum of 6 months The most recent [place] [employer] of clinical endocrinologists and [place] [employer] end[employer]in[employer] guidelines recommend patients who have overweight BMI or obesity BMI, who also have metabolic syndrome, prediabetes, HLD, and other comorbidities or at risk of developing type 2 diabetes should aim for a weight loss goal of at least 10% of the baseline body weight Patient counseled regarding effects of GLP/GIP-1 agonists, and other FDA approved wgt loss meds with regards to a multifactorial approach of weight loss as mentioned above and not solely appetite suppression. We have discussed the mechanism of GLP-1's/GIP, dual incretins I think this would be fantastic option for her given her metabolic workup and body composition We have discussed the risks and benefits and side effects including/and not limited to Sarcopenia, intestinal obstruction, constipation, nausea, lethargy, headache Discussed importance of protein consumption for muscle maintenance as well as strength and resistance training ,probiotics, B12 complex biotin , iron and other nutrients, To help avoid telogen effluvium There is no history of medullary thyroid cancer or multiple endocrine neoplasia There is also no history of cardiovascular disease, hypertension, palpitations, or arrhythmias In the setting of potential stimulant/amphetamine use such as phentermine We have also discussed risks and benefits, and the use of compounded medications to help offset the national shortages as well as financial implications vs trade name drugs GLP must be discontinued upon initiation We have discussed the lifelong requirement of nutritional supplementation And adherence to an exercise regimen as well as importance We did discuss the neurohormonal changes that are occurring with these medications and Need for long-term Continued usage The patient understands and agrees Patient was reassured and welcomed to the practice. We discussed that we stress a hollistic medical approach with emphasis on lifestyle modification. Patient was informed that a healthy lifestyle with exercise and good eating habits can help reduce his risk of medical complications. He is explained that obesity increases his risk of diabetes, cardiovascular disease, or organ damage. We spent a lot of time discussing the relationship between food, exercise, sleep, mental health and obesity. Patient was counseled on the importance EATING local, organic food when possible. Patient was educated on clean 15 and dirty dozen. I provided information about reading books called The Food Rules by Venkat Osborne and Eat Fat Get Lean by Dr Cedric Andre. Self education is important in the journey for weight management. Patient was offered diagnostic testing. We want to measure visceral adiposity, advanced body composition, adverse lipids, fatty acid balance, risk for heart disease and atherosclerosis, markers of inflammation and genetic susceptibility. Patient was counseled on weight management and was advised to lose weight using A. Meal Replacement Products We discussed the lifelong requirement of nutritional supplementation and adherence to an exercise regimen as well as importance of dietary f/u Patient was educated on the replacement products called optifast. This is a good way of taking fixed amount of calories. It has been shown in studies to be ineffective weight management tool. We also recommend maintaining adequate protein intake and muscle composition, 1.5mg/kg This however has to be coupled with lifestyle intervention as well as laboratory data and EKG monitoring. It is impossible to know how a person will tolerate complete meal replacement. The side effects of meal replacement and weight loss could include syncopal attacks, dizziness, gallstones, potential cholecystectomy, possible heart attack and even . The benefits of meal replacement would be potential weight loss but no guarantees can be made. Meal replacement products are not covered by insurance. Once the patient has bought these products we cannot return them B. Lifestyle management which includes several strategies as below 1. Eat a low carbohydrate good fat good protein diet. Eliminate refined carbohydrates from the diet. Continue blood sugar and sugared beverages. Eat local organic when possible. Cook your own meals. Read food labels. None about healthy snacks. Portion control and food with low glycemic index 2. Exercise regularly. Try to get at least 6000 steps a day. Use a predominant to track activity level. Consider using apps like [employer], myfitnesspal, lose it, stick as needed for self-monitoring and weight management. Consider group exercises. Consider hiring a hardboard supervisor. Regular exercise is [place] to sustainable health and prevents as a buffer against weight regain 3. Sleep is most important for healing. Tried to sleep at least 8 hours a night. A good quality sleep needs a sleep ritual with ideal room temperature of around 68. It might help to take a shower and have no electronics in the room and sleep in a very dark room without artificial light. Start her sleep routine and get up early in the morning and go to bed on time 4. Make a social connection. Surround yourself with positive people with positive energy. Connect with friends and family. 5. Get into the habit of meditating and mindfulness while doing everything. 6. Go outside and connect with nature. C. Prescription medications Patient was educated on the use of prescription medications for medical weight loss. This is a growing list and includes phentermine, Topamax,Qsymia, contrave, belviq and saxenda, wegovy All prescription medications could have side effects including but not limited to kidney stones, seizure disorder cardiac arrhythmias heart attack pancreatitis etc. etc.. Patient was encouraged to read the prescription insert and have coaching with their pharmacist and make an informed decision about taking medication and know that these medications are being prescribed with good intentions and we do not know how a patient would react to her medication. Sudden medications are FDA approved for weight loss and there is also off label use depending on patient's inability to afford medications in an attempt to lose weight D. Behavioral counseling was done to establish a relationship between food and an mood. Patient was provided information about local counseling and psychiatry and Dr Hernandez at [facility]. We would like to cover regular topics and build on low glycemic eating exercise mindful eating, using yoga and meditation along with deep breathing and connecting with friends and family. E. MASS PAT reviewed, Patient's current medications were reviewed and opinion was given on medication that can cause weight gain and can be substituted F. Patient was assessed for risk with obesity including and not limiting to atherosclerosis heart disease stroke kidney disease, restrictive lung disease, irritable bowel syndrome and overall mortality. Risk of developing prediabetes diabetes and metabolic syndrome was discussed G. Therapeutic plan: We have decided to make therapeutic plan which would include choosing wisely on calories restricting portion getting active, tracking weight, getting good quality sleep and working on time management H. Patient will follow up in (4) weeks for weight management Of note, some information is being carried forward from prior records for informational purposes only and is being cited so that efficiency, safety and quality of the patient's care is not compromised This note was prepared using voice recognition software and direct typing Please excuse inadvertent cattle and wheat farmer or typing errors, or uncorrected word substitutions Although every attempt has been made by the provider to proofread this document, occasional misspellings and typographical errors may still be present Due to the previous pandemic, and the use of personal protective equipment (PPE) This may decrease voice recognition accuracy Inadvertent cattle and wheat farmer errors may occur 08/30/2023 PAF (paroxysmal atrial fibrillation) (ICD-10 - I48.0) Start Jaskaran 0.25 Total time spent today was 60 minutes of which greater than 50% was spent on coordinating and counseling Patient has been found to be obese with a BMI of (34). Patient has class (1) obesity. We are a board certified obesity and weight management practice Patient has trialed behavioral modification, dietary restrictions and exercise for a minimum of 6 months The most recent [place] [employer] of clinical endocrinologists and [place] [employer]in[employer] guidelines recommend patients who have overweight BMI or obesity BMI, who also have metabolic syndrome, prediabetes, HLD, and other comorbidities or at risk of developing type 2 diabetes should aim for a weight loss goal of at least 10% of the baseline body weight Patient counseled regarding effects of GLP/GIP-1 agonists, and other FDA approved wgt loss meds with regards to a multifactorial approach of weight loss as mentioned above and not solely appetite suppression. We have discussed the mechanism of GLP-1's/GIP, dual incretins I think this would be fantastic option for her given her metabolic workup and body composition We have discussed the risks and benefits and side effects including/and not limited to Sarcopenia, intestinal obstruction, constipation, nausea, lethargy, headache Discussed importance of protein consumption for muscle maintenance as well as strength and resistance training ,probiotics, B12 complex biotin , iron and other nutrients, To help avoid telogen effluvium There is no history of medullary thyroid cancer or multiple endocrine neoplasia There is also no history of cardiovascular disease, hypertension, palpitations, or arrhythmias In the setting of potential stimulant/amphetamine use such as phentermine We have also discussed risks and benefits, and the use of compounded medications to help offset the national shortages as well as financial implications vs trade name drugs GLP must be discontinued upon initiation We have discussed the lifelong requirement of nutritional supplementation And adherence to an exercise regimen as well as importance We did discuss the neurohormonal changes that are occurring with these medications and Need for long-term Continued usage The patient understands and agrees Patient was reassured and welcomed to the practice. We discussed that we stress a hollistic medical approach with emphasis on lifestyle modification. Patient was informed that a healthy lifestyle with exercise and good eating habits can help reduce his risk of medical complications. He is explained that obesity increases his risk of diabetes, cardiovascular disease, or organ damage. We spent a lot of time discussing the relationship between food, exercise, sleep, mental health and obesity. Patient was counseled on the importance EATING local, organic food when possible. Patient was educated on clean 15 and dirty dozen. I provided information about reading books called The Food Rules by Venkat Osborne and Eat Fat Get Lean by Dr Cedric Andre. Self education is important in the journey for weight management. Patient was offered diagnostic testing. We want to measure visceral adiposity, advanced body composition, adverse lipids, fatty acid balance, risk for heart disease and atherosclerosis, markers of inflammation and genetic susceptibility. Patient was counseled on weight management and was advised to lose weight using A. Meal Replacement Products We discussed the lifelong requirement of nutritional supplementation and adherence to an exercise regimen as well as importance of dietary f/u Patient was educated on the replacement products called optifast. This is a good way of taking fixed amount of calories. It has been shown in studies to be ineffective weight management tool. We also recommend maintaining adequate protein intake and muscle composition, 1.5mg/kg This however has to be coupled with lifestyle intervention as well as laboratory data and EKG monitoring. It is impossible to know how a person will tolerate complete meal replacement. The side effects of meal replacement and weight loss could include syncopal attacks, dizziness, gallstones, potential cholecystectomy, possible heart attack and even . The benefits of meal replacement would be potential weight loss but no guarantees can be made. Meal replacement products are not covered by insurance. Once the patient has bought these products we cannot return them B. Lifestyle management which includes several strategies as below 1. Eat a low carbohydrate good fat good protein diet. Eliminate refined carbohydrates from the diet. Continue blood sugar and sugared beverages. Eat local organic when possible. Cook your own meals. Read food labels. None about healthy snacks. Portion control and food with low glycemic index 2. Exercise regularly. Try to get at least 6000 steps a day. Use a predominant to track activity level. Consider using apps like [employer], myfitnesspal, lose it, stick as needed for self-monitoring and weight management. Consider group exercises. Consider hiring a hardboard supervisor. Regular exercise is [place] to sustainable health and prevents as a buffer against weight regain 3. Sleep is most important for healing. Tried to sleep at least 8 hours a night. A good quality sleep needs a sleep ritual with ideal room temperature of around 68. It might help to take a shower and have no electronics in the room and sleep in a very dark room without artificial light. Start her sleep routine and get up early in the morning and go to bed on time 4. Make a social connection. Surround yourself with positive people with positive energy. Connect with friends and family. 5. Get into the habit of meditating and mindfulness while doing everything. 6. Go outside and connect with nature. C. Prescription medications Patient was educated on the use of prescription medications for medical weight loss. This is a growing list and includes phentermine, Topamax,Qsymia, contrave, belviq and saxenda, wegovy All prescription medications could have side effects including but not limited to kidney stones, seizure disorder cardiac arrhythmias heart attack pancreatitis etc. etc.. Patient was encouraged to read the prescription insert and have coaching with their pharmacist and make an informed decision about taking medication and know that these medications are being prescribed with good intentions and we do not know how a patient would react to her medication. Sudden medications are FDA approved for weight loss and there is also off label use depending on patient's inability to afford medications in an attempt to lose weight D. Behavioral counseling was done to establish a relationship between food and an mood. Patient was provided information about local counseling and psychiatry and Dr Hernandez at [facility]. We would like to cover regular topics and build on low glycemic eating exercise mindful eating, using yoga and meditation along with deep breathing and connecting with friends and family. E. MASS PAT reviewed, Patient's current medications were reviewed and opinion was given on medication that can cause weight gain and can be substituted F. Patient was assessed for risk with obesity including and not limiting to atherosclerosis heart disease stroke kidney disease, restrictive lung disease, irritable bowel syndrome and overall mortality. Risk of developing prediabetes diabetes and metabolic syndrome was discussed G. Therapeutic plan: We have decided to make therapeutic plan which would include choosing wisely on calories restricting portion getting active, tracking weight, getting good quality sleep and working on time management H. Patient will follow up in (4) weeks for weight management Of note, some information is being carried forward from prior records for informational purposes only and is being cited so that efficiency, safety and quality of the patient's care is not compromised This note was prepared using voice recognition software and direct typing Please excuse inadvertent cattle and wheat farmer or typing errors, or uncorrected word substitutions Although every attempt has been made by the provider to proofread this document, occasional misspellings and typographical errors may still be present Due to the previous pandemic, and the use of personal protective equipment (PPE) This may decrease voice recognition accuracy Inadvertent cattle and wheat farmer errors may occur 11/07/2023 PAF (paroxysmal atrial fibrillation) (ICD-10 - I48.0) #Weight Management 11/07/2023 Increase Wegovy to 0.5 with options up to 1 as well Total time spent today was 30 minutes of which greater than 50% was spent on coordinating and counseling Patient has been found to be obese with a BMI of (33). Patient has class (1) obesity. We are a board certified obesity and weight management practice Patient has trialed behavioral modification, dietary restrictions and exercise for a minimum of 6 months The most recent [place] [employer] of clinical endocrinologists and [place] [employer]in[employer] guidelines recommend patients who have overweight BMI or obesity BMI, who also have metabolic syndrome, prediabetes, HLD, and other comorbidities or at risk of developing type 2 diabetes should aim for a weight loss goal of at least 10% of the baseline body weight Patient counseled regarding effects of GLP/GIP-1 agonists, and other FDA approved wgt loss meds with regards to a multifactorial approach of weight loss as mentioned above and not solely appetite suppression. We have discussed the mechanism of GLP-1's/GIP, dual incretins I think this would be fantastic option for her given her metabolic workup and body composition We have discussed the risks and benefits and side effects including/and not limited to Sarcopenia, intestinal obstruction, constipation, nausea, lethargy, headache Discussed importance of protein consumption for muscle maintenance as well as strength and resistance training ,probiotics, B12 complex biotin , iron and other nutrients, To help avoid telogen effluvium There is no history of medullary thyroid cancer or multiple endocrine neoplasia There is also no history of cardiovascular disease, hypertension, palpitations, or arrhythmias In the setting of potential stimulant/amphetamine use such as phentermine We have also discussed risks and benefits, and the use of compounded medications to help offset the national shortages as well as financial implications vs trade name drugs GLP must be discontinued upon initiation We have discussed the lifelong requirement of nutritional supplementation And adherence to an exercise regimen as well as importance We did discuss the neurohormonal changes that are occurring with these medications and Need for long-term Continued usage The patient understands and agrees Patient was reassured and welcomed to the practice. We discussed that we stress a hollistic medical approach with emphasis on lifestyle modification. Patient was informed that a healthy lifestyle with exercise and good eating habits can help reduce his risk of medical complications. He is explained that obesity increases his risk of diabetes, cardiovascular disease, or organ damage. We spent a lot of time discussing the relationship between food, exercise, sleep, mental health and obesity. Patient was counseled on the importance EATING local, organic food when possible. Patient was educated on clean 15 and dirty dozen. I provided information about reading books called The Food Rules by Venkat Osborne and Eat Fat Get Lean by Dr Cedric Andre. Self education is important in the journey for weight management. Patient was offered diagnostic testing. We want to measure visceral adiposity, advanced body composition, adverse lipids, fatty acid balance, risk for heart disease and atherosclerosis, markers of inflammation and genetic susceptibility. Patient was counseled on weight management and was advised to lose weight using A. Meal Replacement Products We discussed the lifelong requirement of nutritional supplementation and adherence to an exercise regimen as well as importance of dietary f/u Patient was educated on the replacement products called optifast. This is a good way of taking fixed amount of calories. It has been shown in studies to be ineffective weight management tool. We also recommend maintaining adequate protein intake and muscle composition, 1.5mg/kg This however has to be coupled with lifestyle intervention as well as laboratory data and EKG monitoring. It is impossible to know how a person will tolerate complete meal replacement. The side effects of meal replacement and weight loss could include syncopal attacks, dizziness, gallstones, potential cholecystectomy, possible heart attack and even . The benefits of meal replacement would be potential weight loss but no guarantees can be made. Meal replacement products are not covered by insurance. Once the patient has bought these products we cannot return them B. Lifestyle management which includes several strategies as below 1. Eat a low carbohydrate good fat good protein diet. Eliminate refined carbohydrates from the diet. Continue blood sugar and sugared beverages. Eat local organic when possible. Cook your own meals. Read food labels. None about healthy snacks. Portion control and food with low glycemic index 2. Exercise regularly. Try to get at least 6000 steps a day. Use a predominant to track activity level. Consider using apps like [employer], myfitnesspal, lose it, stick as needed for self-monitoring and weight management. Consider group exercises. Consider hiring a hardboard supervisor. Regular exercise is [place] to sustainable health and prevents as a buffer against weight regain 3. Sleep is most important for healing. Tried to sleep at least 8 hours a night. A good quality sleep needs a sleep ritual with ideal room temperature of around 68. It might help to take a shower and have no electronics in the room and sleep in a very dark room without artificial light. Start her sleep routine and get up early in the morning and go to bed on time 4. Make a social connection. Surround yourself with positive people with positive energy. Connect with friends and family. 5. Get into the habit of meditating and mindfulness while doing everything. 6. Go outside and connect with nature. C. Prescription medications Patient was educated on the use of prescription medications for medical weight loss. This is a growing list and includes phentermine, Topamax,Qsymia, contrave, belviq and saxenda, wegovy All prescription medications could have side effects including but not limited to kidney stones, seizure disorder cardiac arrhythmias heart attack pancreatitis etc. etc.. Patient was encouraged to read the prescription insert and have coaching with their pharmacist and make an informed decision about taking medication and know that these medications are being prescribed with good intentions and we do not know how a patient would react to her medication. Sudden medications are FDA approved for weight loss and there is also off label use depending on patient's inability to afford medications in an attempt to lose weight D. Behavioral counseling was done to establish a relationship between food and an mood. Patient was provided information about local counseling and psychiatry and Dr Hernandez at [facility]. We would like to cover regular topics and build on low glycemic eating exercise mindful eating, using yoga and meditation along with deep breathing and connecting with friends and family. E. MASS PAT reviewed, Patient's current medications were reviewed and opinion was given on medication that can cause weight gain and can be substituted F. Patient was assessed for risk with obesity including and not limiting to atherosclerosis heart disease stroke kidney disease, restrictive lung disease, irritable bowel syndrome and overall mortality. Risk of developing prediabetes diabetes and metabolic syndrome was discussed G. Therapeutic plan: We have decided to make therapeutic plan which would include choosing wisely on calories restricting portion getting active, tracking weight, getting good quality sleep and working on time management H. Patient will follow up in (4) weeks for weight management Of note, some information is being carried forward from prior records for informational purposes only and is being cited so that efficiency, safety and quality of the patient's care is not compromised This note was prepared using voice recognition software and direct typing Please excuse inadvertent cattle and wheat farmer or typing errors, or uncorrected word substitutions Although every attempt has been made by the provider to proofread this document, occasional misspellings and typographical errors may still be present Due to the previous pandemic, and the use of personal protective equipment (PPE) This may decrease voice recognition accuracy Inadvertent cattle and wheat farmer errors may occur 12/05/2023 PAF (paroxysmal atrial fibrillation) (ICD-10 - I48.0) Patient is here for weight management follow-up. We focused on significance of healthy lifestyle changes. We talked about need to track steps with goal between 6000-10,000 steps daily, focus on portion control, read food labels, get adequate sleep between 7 to 8 hours, get adequate rest to the body, meditate, frequent nutritious meals including vegetables and healthy choices of lean meats, fish, and elimination of refined carbohydrates. We also talked about mindfulness and mindful eating. Particular focus was on continuing to improve diet with high-protein and a variety of fruits and vegetables and maintain good portion control. Total time spent with 30 minutes with greater than 50% spent on counseling and coordinating care. 12/05/2023: Weight 242 pounds, BMI 32.82. Seca scan unable to be completed today due to equipment error. Patient demonstrates understanding. He is down 2 pounds from last visit which she was congratulated for. At previous visit discussed going up to 1 mg of Wegovy, patient states he has had trouble accessing this dose at the pharmacy, has been able to access 1.7 mg which she is using however has been dividing the dose to achieve 1 mg. Has been walking for exercise and golfing. Reports good portion control. Will continue Wegovy at this time. Educated on proper use of medication and expected side effect profile including but not limited to nausea, constipation, abdominal pain, vomiting, or acid reflux. He will follow-up in the office in approximately 4 weeks for weight management. # Atrial fibrillation: Patient is asymptomatic in office today without chest pain, shortness of breath, dyspnea on exertion, or diaphoresis. Continue Multaq 400 mg twice daily with meals. Cardiopulmonary exam unremarkable today in office. Will continue to monitor. Please follow-up with PCP. All questions have been answered to patient's satisfaction. Patient verbalized understanding of diagnosis and treatments explained. Advised to call sooner prior to next visit it any questions/concerns arise. Case discussed with collaborating physician Diego Guerrero who reviewed the assessment and plan. Chart, medications, labs, vital signs reviewed. Dictation was accomplished with the use of [employer] voice recognition software, which is prone to medical misidentifications and grammatical errors. This are unintentional and the practitioner does try to identify and correct these, but some could still be present. Please do not hesitate to contact practitioner for clarification. 01/03/2024 H/O gastric sleeve (ICD-10 - Z90.3) Patient is here for weight management follow-up. We focused on significance of healthy lifestyle changes. We talked about need to track steps with goal between 6000-10,000 steps daily, focus on portion control, read food labels, get adequate sleep between 7 to 8 hours, get adequate rest to the body, meditate, frequent nutritious meals including vegetables and healthy choices of lean meats, fish, and elimination of refined carbohydrates. We also talked about mindfulness and mindful eating. Particular focus was on continuing to improve diet with high-protein and a variety of fruits and vegetables and maintain good portion control. Total time spent with 30 minutes with greater than 50% spent on counseling and coordinating care. 12/05/2023: Weight 242 pounds, BMI 32.82. Seca scan unable to be completed today due to equipment error. Patient demonstrates understanding. He is down 2 pounds from last visit which she was congratulated for. At previous visit discussed going up to 1 mg of Wegovy, patient states he has had trouble accessing this dose at the pharmacy, has been able to access 1.7 mg which she is using however has been dividing the dose to achieve 1 mg. Has been walking for exercise and golfing. Reports good portion control. Will continue Wegovy at this time. Educated on proper use of medication and expected side effect profile including but not limited to nausea, constipation, abdominal pain, vomiting, or acid reflux. He will follow-up in the office in approximately 4 weeks for weight management. 01/03/24: Weight 241 pounds, BMI 32.68. SECA scan completed interpreted with the patient. Between today and October the patient has lost 5 pounds of body fat. Maintaining approximately 80 pounds of muscle mass. Visceral adipose tissue index is still high. He is currently prescribed Wegovy 0.5 mg however states that his pharmacy does not have access to this dose and he has been receiving 1.7 mg. He has been trying to half the dose in order to mimic 0.5 mg. We discussed the importance of getting him a prescription of 0.5 mg of Wegovy for better control of the medication. Patient agrees. Also reports increased nausea in the past several days as well as shoulder pain. We discussed that joint pain may be a side effect of GLP-1 agonist. Also plans to increase his physical activity levels. Will send refill of Wegovy 0.5 mg once weekly to the pharmacy. Discussed proper use of the medication including rotating injection sites and expected side effect profile. Will also send Zofran to be used as needed for nausea. He will follow-up in the office in approximately 4 weeks for weight management. All patient questions answered at this time. # Atrial fibrillation: Patient is asymptomatic in office today without chest pain, shortness of breath, dyspnea on exertion, or diaphoresis. Continue Multaq 400 mg twice daily with meals. Cardiopulmonary exam unremarkable today in office. Will continue to monitor. Please follow-up with PCP. # Hypertension: Blood pressure stable in office today 124/78. Discussed red flag signs of hypertension including but not limited to headache, blurry vision, chest pain, abdominal pain, difficulty breathing, dizziness, or weakness. Will continue to monitor. All questions have been answered to patient's satisfaction. Patient verbalized understanding of diagnosis and treatments explained. Advised to call sooner prior to next visit it any questions/concerns arise. Case discussed with collaborating physician Diego Guerrero who reviewed the assessment and plan. Chart, medications, labs, vital signs reviewed. Dictation was accomplished with the use of [employer] voice recognition software, which is prone to medical misidentifications and grammatical errors. This are unintentional and the practitioner does try to identify and correct these, but some could still be present. Please do not hesitate to contact practitioner for clarification. 01/03/2024 PAF (paroxysmal atrial fibrillation) (ICD-10 - I48.0) Patient is here for weight management follow-up. We focused on significance of healthy lifestyle changes. We talked about need to track steps with goal between 6000-10,000 steps daily, focus on portion control, read food labels, get adequate sleep between 7 to 8 hours, get adequate rest to the body, meditate, frequent nutritious meals including vegetables and healthy choices of lean meats, fish, and elimination of refined carbohydrates. We also talked about mindfulness and mindful eating. Particular focus was on continuing to improve diet with high-protein and a variety of fruits and vegetables and maintain good portion control. Total time spent with 30 minutes with greater than 50% spent on counseling and coordinating care. 12/05/2023: Weight 242 pounds, BMI 32.82. Seca scan unable to be completed today due to equipment error. Patient demonstrates understanding. He is down 2 pounds from last visit which she was congratulated for. At previous visit discussed going up to 1 mg of Wegovy, patient states he has had trouble accessing this dose at the pharmacy, has been able to access 1.7 mg which she is using however has been dividing the dose to achieve 1 mg. Has been walking for exercise and golfing. Reports good portion control. Will continue Wegovy at this time. Educated on proper use of medication and expected side effect profile including but not limited to nausea, constipation, abdominal pain, vomiting, or acid reflux. He will follow-up in the office in approximately 4 weeks for weight management. 01/03/24: Weight 241 pounds, BMI 32.68. SECA scan completed interpreted with the patient. Between today and October the patient has lost 5 pounds of body fat. Maintaining approximately 80 pounds of muscle mass. Visceral adipose tissue index is still high. He is currently prescribed Wegovy 0.5 mg however states that his pharmacy does not have access to this dose and he has been receiving 1.7 mg. He has been trying to half the dose in order to mimic 0.5 mg. We discussed the importance of getting him a prescription of 0.5 mg of Wegovy for better control of the medication. Patient agrees. Also reports increased nausea in the past several days as well as shoulder pain. We discussed that joint pain may be a side effect of GLP-1 agonist. Also plans to increase his physical activity levels. Will send refill of Wegovy 0.5 mg once weekly to the pharmacy. Discussed proper use of the medication including rotating injection sites and expected side effect profile. Will also send Zofran to be used as needed for nausea. He will follow-up in the office in approximately 4 weeks for weight management. All patient questions answered at this time. # Atrial fibrillation: Patient is asymptomatic in office today without chest pain, shortness of breath, dyspnea on exertion, or diaphoresis. Continue Multaq 400 mg twice daily with meals. Cardiopulmonary exam unremarkable today in office. Will continue to monitor. Please follow-up with PCP. # Hypertension: Blood pressure stable in office today 124/78. Discussed red flag signs of hypertension including but not limited to headache, blurry vision, chest pain, abdominal pain, difficulty breathing, dizziness, or weakness. Will continue to monitor. All questions have been answered to patient's satisfaction. Patient verbalized understanding of diagnosis and treatments explained. Advised to call sooner prior to next visit it any questions/concerns arise. Case discussed with collaborating physician Diego Guerrero who reviewed the assessment and plan. Chart, medications, labs, vital signs reviewed. Dictation was accomplished with the use of [employer] voice recognition software, which is prone to medical misidentifications and grammatical errors. This are unintentional and the practitioner does try to identify and correct these, but some could still be present. Please do not hesitate to contact practitioner for clarification. 12/05/2023 Essential (primary) hypertension (ICD-10 - I10) Patient is here for weight management follow-up. We focused on significance of healthy lifestyle changes. We talked about need to track steps with goal between 6000-10,000 steps daily, focus on portion control, read food labels, get adequate sleep between 7 to 8 hours, get adequate rest to the body, meditate, frequent nutritious meals including vegetables and healthy choices of lean meats, fish, and elimination of refined carbohydrates. We also talked about mindfulness and mindful eating. Particular focus was on continuing to improve diet with high-protein and a variety of fruits and vegetables and maintain good portion control. Total time spent with 30 minutes with greater than 50% spent on counseling and coordinating care. 12/05/2023: Weight 242 pounds, BMI 32.82. Seca scan unable to be completed today due to equipment error. Patient demonstrates understanding. He is down 2 pounds from last visit which she was congratulated for. At previous visit discussed going up to 1 mg of Wegovy, patient states he has had trouble accessing this dose at the pharmacy, has been able to access 1.7 mg which she is using however has been dividing the dose to achieve 1 mg. Has been walking for exercise and golfing. Reports good portion control. Will continue Wegovy at this time. Educated on proper use of medication and expected side effect profile including but not limited to nausea, constipation, abdominal pain, vomiting, or acid reflux. He will follow-up in the office in approximately 4 weeks for weight management. # Atrial fibrillation: Patient is asymptomatic in office today without chest pain, shortness of breath, dyspnea on exertion, or diaphoresis. Continue Multaq 400 mg twice daily with meals. Cardiopulmonary exam unremarkable today in office. Will continue to monitor. Please follow-up with PCP. All questions have been answered to patient's satisfaction. Patient verbalized understanding of diagnosis and treatments explained. Advised to call sooner prior to next visit it any questions/concerns arise. Case discussed with collaborating physician Diego Guerrero who reviewed the assessment and plan. Chart, medications, labs, vital signs reviewed. Dictation was accomplished with the use of [employer] voice recognition software, which is prone to medical misidentifications and grammatical errors. This are unintentional and the practitioner does try to identify and correct these, but some could still be present. Please do not hesitate to contact practitioner for clarification. 08/30/2023 Essential (primary) hypertension (ICD-10 - I10) Start Wegovy 0.25 Total time spent today was 60 minutes of which greater than 50% was spent on coordinating and counseling Patient has been found to be obese with a BMI of (34). Patient has class (1) obesity. We are a board certified obesity and weight management practice Patient has trialed behavioral modification, dietary restrictions and exercise for a minimum of 6 months The most recent [place] [employer] of clinical endocrinologists and [place] [employer] end[employer]in[employer] guidelines recommend patients who have overweight BMI or obesity BMI, who also have metabolic syndrome, prediabetes, HLD, and other comorbidities or at risk of developing type 2 diabetes should aim for a weight loss goal of at least 10% of the baseline body weight Patient counseled regarding effects of GLP/GIP-1 agonists, and other FDA approved wgt loss meds with regards to a multifactorial approach of weight loss as mentioned above and not solely appetite suppression. We have discussed the mechanism of GLP-1's/GIP, dual incretins I think this would be fantastic option for her given her metabolic workup and body composition We have discussed the risks and benefits and side effects including/and not limited to Sarcopenia, intestinal obstruction, constipation, nausea, lethargy, headache Discussed importance of protein consumption for muscle maintenance as well as strength and resistance training ,probiotics, B12 complex biotin , iron and other nutrients, To help avoid telogen effluvium There is no history of medullary thyroid cancer or multiple endocrine neoplasia There is also no history of cardiovascular disease, hypertension, palpitations, or arrhythmias In the setting of potential stimulant/amphetamine use such as phentermine We have also discussed risks and benefits, and the use of compounded medications to help offset the national shortages as well as financial implications vs trade name drugs GLP must be discontinued upon initiation We have discussed the lifelong requirement of nutritional supplementation And adherence to an exercise regimen as well as importance We did discuss the neurohormonal changes that are occurring with these medications and Need for long-term Continued usage The patient understands and agrees Patient was reassured and welcomed to the practice. We discussed that we stress a hollistic medical approach with emphasis on lifestyle modification. Patient was informed that a healthy lifestyle with exercise and good eating habits can help reduce his risk of medical complications. He is explained that obesity increases his risk of diabetes, cardiovascular disease, or organ damage. We spent a lot of time discussing the relationship between food, exercise, sleep, mental health and obesity. Patient was counseled on the importance EATING local, organic food when possible. Patient was educated on clean 15 and dirty dozen. I provided information about reading books called The Food Rules by Venkat Osborne and Eat Fat Get Lean by Dr Cedric Andre. Self education is important in the journey for weight management. Patient was offered diagnostic testing. We want to measure visceral adiposity, advanced body composition, adverse lipids, fatty acid balance, risk for heart disease and atherosclerosis, markers of inflammation and genetic susceptibility. Patient was counseled on weight management and was advised to lose weight using A. Meal Replacement Products We discussed the lifelong requirement of nutritional supplementation and adherence to an exercise regimen as well as importance of dietary f/u Patient was educated on the replacement products called optifast. This is a good way of taking fixed amount of calories. It has been shown in studies to be ineffective weight management tool. We also recommend maintaining adequate protein intake and muscle composition, 1.5mg/kg This however has to be coupled with lifestyle intervention as well as laboratory data and EKG monitoring. It is impossible to know how a person will tolerate complete meal replacement. The side effects of meal replacement and weight loss could include syncopal attacks, dizziness, gallstones, potential cholecystectomy, possible heart attack and even . The benefits of meal replacement would be potential weight loss but no guarantees can be made. Meal replacement products are not covered by insurance. Once the patient has bought these products we cannot return them B. Lifestyle management which includes several strategies as below 1. Eat a low carbohydrate good fat good protein diet. Eliminate refined carbohydrates from the diet. Continue blood sugar and sugared beverages. Eat local organic when possible. Cook your own meals. Read food labels. None about healthy snacks. Portion control and food with low glycemic index 2. Exercise regularly. Try to get at least 6000 steps a day. Use a predominant to track activity level. Consider using apps like [employer], [employer], lose it, stick as needed for self-monitoring and weight management. Consider group exercises. Consider hiring a hardboard supervisor. Regular exercise is [place] to sustainable health and prevents as a buffer against weight regain 3. Sleep is most important for healing. Tried to sleep at least 8 hours a night. A good quality sleep needs a sleep ritual with ideal room temperature of around 68. It might help to take a shower and have no electronics in the room and sleep in a very dark room without artificial light. Start her sleep routine and get up early in the morning and go to bed on time 4. Make a social connection. Surround yourself with positive people with positive energy. Connect with friends and family. 5. Get into the habit of meditating and mindfulness while doing everything. 6. Go outside and connect with nature. C. Prescription medications Patient was educated on the use of prescription medications for medical weight loss. This is a growing list and includes phentermine, Topamax,Qsymia, contrave, belviq and saxenda, wegovy All prescription medications could have side effects including but not limited to kidney stones, seizure disorder cardiac arrhythmias heart attack pancreatitis etc. etc.. Patient was encouraged to read the prescription insert and have coaching with their pharmacist and make an informed decision about taking medication and know that these medications are being prescribed with good intentions and we do not know how a patient would react to her medication. Sudden medications are FDA approved for weight loss and there is also off label use depending on patient's inability to afford medications in an attempt to lose weight D. Behavioral counseling was done to establish a relationship between food and an mood. Patient was provided information about local counseling and psychiatry and Dr Hernandez at [facility]. We would like to cover regular topics and build on low glycemic eating exercise mindful eating, using yoga and meditation along with deep breathing and connecting with friends and family. E. MASS PAT reviewed, Patient's current medications were reviewed and opinion was given on medication that can cause weight gain and can be substituted F. Patient was assessed for risk with obesity including and not limiting to atherosclerosis heart disease stroke kidney disease, restrictive lung disease, irritable bowel syndrome and overall mortality. Risk of developing prediabetes diabetes and metabolic syndrome was discussed G. Therapeutic plan: We have decided to make therapeutic plan which would include choosing wisely on calories restricting portion getting active, tracking weight, getting good quality sleep and working on time management H. Patient will follow up in (4) weeks for weight management Of note, some information is being carried forward from prior records for informational purposes only and is being cited so that efficiency, safety and quality of the patient's care is not compromised This note was prepared using voice recognition software and direct typing Please excuse inadvertent cattle and wheat farmer or typing errors, or uncorrected word substitutions Although every attempt has been made by the provider to proofread this document, occasional misspellings and typographical errors may still be present Due to the previous pandemic, and the use of personal protective equipment (PPE) This may decrease voice recognition accuracy Inadvertent cattle and wheat farmer errors may occur 11/07/2023 Essential (primary) hypertension (ICD-10 - I10) #Weight Management 11/07/2023 Increase Wegovy to 0.5 with options up to 1 as well Total time spent today was 30 minutes of which greater than 50% was spent on coordinating and counseling Patient has been found to be obese with a BMI of (33). Patient has class (1) obesity. We are a board certified obesity and weight management practice Patient has trialed behavioral modification, dietary restrictions and exercise for a minimum of 6 months The most recent [place] [employer] of clinical endocrinologists and [place] [employer] endocrin[employer] guidelines recommend patients who have overweight BMI or obesity BMI, who also have metabolic syndrome, prediabetes, HLD, and other comorbidities or at risk of developing type 2 diabetes should aim for a weight loss goal of at least 10% of the baseline body weight Patient counseled regarding effects of GLP/GIP-1 agonists, and other FDA approved wgt loss meds with regards to a multifactorial approach of weight loss as mentioned above and not solely appetite suppression. We have discussed the mechanism of GLP-1's/GIP, dual incretins I think this would be fantastic option for her given her metabolic workup and body composition We have discussed the risks and benefits and side effects including/and not limited to Sarcopenia, intestinal obstruction, constipation, nausea, lethargy, headache Discussed importance of protein consumption for muscle maintenance as well as strength and resistance training ,probiotics, B12 complex biotin , iron and other nutrients, To help avoid telogen effluvium There is no history of medullary thyroid cancer or multiple endocrine neoplasia There is also no history of cardiovascular disease, hypertension, palpitations, or arrhythmias In the setting of potential stimulant/amphetamine use such as phentermine We have also discussed risks and benefits, and the use of compounded medications to help offset the national shortages as well as financial implications vs trade name drugs GLP must be discontinued upon initiation We have discussed the lifelong requirement of nutritional supplementation And adherence to an exercise regimen as well as importance We did discuss the neurohormonal changes that are occurring with these medications and Need for long-term Continued usage The patient understands and agrees Patient was reassured and welcomed to the practice. We discussed that we stress a hollistic medical approach with emphasis on lifestyle modification. Patient was informed that a healthy lifestyle with exercise and good eating habits can help reduce his risk of medical complications. He is explained that obesity increases his risk of diabetes, cardiovascular disease, or organ damage. We spent a lot of time discussing the relationship between food, exercise, sleep, mental health and obesity. Patient was counseled on the importance EATING local, organic food when possible. Patient was educated on clean 15 and dirty dozen. I provided information about reading books called The Food Rules by Venkat Osborne and Eat Fat Get Lean by Dr Cedric Andre. Self education is important in the journey for weight management. Patient was offered diagnostic testing. We want to measure visceral adiposity, advanced body composition, adverse lipids, fatty acid balance, risk for heart disease and atherosclerosis, markers of inflammation and genetic susceptibility. Patient was counseled on weight management and was advised to lose weight using A. Meal Replacement Products We discussed the lifelong requirement of nutritional supplementation and adherence to an exercise regimen as well as importance of dietary f/u Patient was educated on the replacement products called optifast. This is a good way of taking fixed amount of calories. It has been shown in studies to be ineffective weight management tool. We also recommend maintaining adequate protein intake and muscle composition, 1.5mg/kg This however has to be coupled with lifestyle intervention as well as laboratory data and EKG monitoring. It is impossible to know how a person will tolerate complete meal replacement. The side effects of meal replacement and weight loss could include syncopal attacks, dizziness, gallstones, potential cholecystectomy, possible heart attack and even . The benefits of meal replacement would be potential weight loss but no guarantees can be made. Meal replacement products are not covered by insurance. Once the patient has bought these products we cannot return them B. Lifestyle management which includes several strategies as below 1. Eat a low carbohydrate good fat good protein diet. Eliminate refined carbohydrates from the diet. Continue blood sugar and sugared beverages. Eat local organic when possible. Cook your own meals. Read food labels. None about healthy snacks. Portion control and food with low glycemic index 2. Exercise regularly. Try to get at least 6000 steps a day. Use a predominant to track activity level. Consider using apps like [employer], [employer], lose it, stick as needed for self-monitoring and weight management. Consider group exercises. Consider hiring a hardboard supervisor. Regular exercise is [place] to sustainable health and prevents as a buffer against weight regain 3. Sleep is most important for healing. Tried to sleep at least 8 hours a night. A good quality sleep needs a sleep ritual with ideal room temperature of around 68. It might help to take a shower and have no electronics in the room and sleep in a very dark room without artificial light. Start her sleep routine and get up early in the morning and go to bed on time 4. Make a social connection. Surround yourself with positive people with positive energy. Connect with friends and family. 5. Get into the habit of meditating and mindfulness while doing everything. 6. Go outside and connect with nature. C. Prescription medications Patient was educated on the use of prescription medications for medical weight loss. This is a growing list and includes phentermine, Topamax,Qsymia, contrave, belviq and saxenda, wegovy All prescription medications could have side effects including but not limited to kidney stones, seizure disorder cardiac arrhythmias heart attack pancreatitis etc. etc.. Patient was encouraged to read the prescription insert and have coaching with their pharmacist and make an informed decision about taking medication and know that these medications are being prescribed with good intentions and we do not know how a patient would react to her medication. Sudden medications are FDA approved for weight loss and there is also off label use depending on patient's inability to afford medications in an attempt to lose weight D. Behavioral counseling was done to establish a relationship between food and an mood. Patient was provided information about local counseling and psychiatry and Dr Hernandez at [facility]. We would like to cover regular topics and build on low glycemic eating exercise mindful eating, using yoga and meditation along with deep breathing and connecting with friends and family. E. MASS PAT reviewed, Patient's current medications were reviewed and opinion was given on medication that can cause weight gain and can be substituted F. Patient was assessed for risk with obesity including and not limiting to atherosclerosis heart disease stroke kidney disease, restrictive lung disease, irritable bowel syndrome and overall mortality. Risk of developing prediabetes diabetes and metabolic syndrome was discussed G. Therapeutic plan: We have decided to make therapeutic plan which would include choosing wisely on calories restricting portion getting active, tracking weight, getting good quality sleep and working on time management H. Patient will follow up in (4) weeks for weight management Of note, some information is being carried forward from prior records for informational purposes only and is being cited so that efficiency, safety and quality of the patient's care is not compromised This note was prepared using voice recognition software and direct typing Please excuse inadvertent cattle and wheat farmer or typing errors, or uncorrected word substitutions Although every attempt has been made by the provider to proofread this document, occasional misspellings and typographical errors may still be present Due to the previous pandemic, and the use of personal protective equipment (PPE) This may decrease voice recognition accuracy Inadvertent cattle and wheat farmer errors may occur 08/30/2023 H/O gastric sleeve (ICD-10 - Z90.3) Start Jaskaran 0.25 Total time spent today was 60 minutes of which greater than 50% was spent on coordinating and counseling Patient has been found to be obese with a BMI of (34). Patient has class (1) obesity. We are a board certified obesity and weight management practice Patient has trialed behavioral modification, dietary restrictions and exercise for a minimum of 6 months The most recent [place] [employer] of clinical endocrinologists and [place] [employer] endocrin[employer] guidelines recommend patients who have overweight BMI or obesity BMI, who also have metabolic syndrome, prediabetes, HLD, and other comorbidities or at risk of developing type 2 diabetes should aim for a weight loss goal of at least 10% of the baseline body weight Patient counseled regarding effects of GLP/GIP-1 agonists, and other FDA approved wgt loss meds with regards to a multifactorial approach of weight loss as mentioned above and not solely appetite suppression. We have discussed the mechanism of GLP-1's/GIP, dual incretins I think this would be fantastic option for her given her metabolic workup and body composition We have discussed the risks and benefits and side effects including/and not limited to Sarcopenia, intestinal obstruction, constipation, nausea, lethargy, headache Discussed importance of protein consumption for muscle maintenance as well as strength and resistance training ,probiotics, B12 complex biotin , iron and other nutrients, To help avoid telogen effluvium There is no history of medullary thyroid cancer or multiple endocrine neoplasia There is also no history of cardiovascular disease, hypertension, palpitations, or arrhythmias In the setting of potential stimulant/amphetamine use such as phentermine We have also discussed risks and benefits, and the use of compounded medications to help offset the national shortages as well as financial implications vs trade name drugs GLP must be discontinued upon initiation We have discussed the lifelong requirement of nutritional supplementation And adherence to an exercise regimen as well as importance We did discuss the neurohormonal changes that are occurring with these medications and Need for long-term Continued usage The patient understands and agrees Patient was reassured and welcomed to the practice. We discussed that we stress a hollistic medical approach with emphasis on lifestyle modification. Patient was informed that a healthy lifestyle with exercise and good eating habits can help reduce his risk of medical complications. He is explained that obesity increases his risk of diabetes, cardiovascular disease, or organ damage. We spent a lot of time discussing the relationship between food, exercise, sleep, mental health and obesity. Patient was counseled on the importance EATING local, organic food when possible. Patient was educated on clean 15 and dirty dozen. I provided information about reading books called The Food Rules by Venkat Osborne and Eat Fat Get Lean by Dr Cedric Andre. Self education is important in the journey for weight management. Patient was offered diagnostic testing. We want to measure visceral adiposity, advanced body composition, adverse lipids, fatty acid balance, risk for heart disease and atherosclerosis, markers of inflammation and genetic susceptibility. Patient was counseled on weight management and was advised to lose weight using A. Meal Replacement Products We discussed the lifelong requirement of nutritional supplementation and adherence to an exercise regimen as well as importance of dietary f/u Patient was educated on the replacement products called optifast. This is a good way of taking fixed amount of calories. It has been shown in studies to be ineffective weight management tool. We also recommend maintaining adequate protein intake and muscle composition, 1.5mg/kg This however has to be coupled with lifestyle intervention as well as laboratory data and EKG monitoring. It is impossible to know how a person will tolerate complete meal replacement. The side effects of meal replacement and weight loss could include syncopal attacks, dizziness, gallstones, potential cholecystectomy, possible heart attack and even . The benefits of meal replacement would be potential weight loss but no guarantees can be made. Meal replacement products are not covered by insurance. Once the patient has bought these products we cannot return them B. Lifestyle management which includes several strategies as below 1. Eat a low carbohydrate good fat good protein diet. Eliminate refined carbohydrates from the diet. Continue blood sugar and sugared beverages. Eat local organic when possible. Cook your own meals. Read food labels. None about healthy snacks. Portion control and food with low glycemic index 2. Exercise regularly. Try to get at least 6000 steps a day. Use a predominant to track activity level. Consider using apps like [employer], myfitnesspal, lose it, stick as needed for self-monitoring and weight management. Consider group exercises. Consider hiring a hardboard supervisor. Regular exercise is [place] to sustainable health and prevents as a buffer against weight regain 3. Sleep is most important for healing. Tried to sleep at least 8 hours a night. A good quality sleep needs a sleep ritual with ideal room temperature of around 68. It might help to take a shower and have no electronics in the room and sleep in a very dark room without artificial light. Start her sleep routine and get up early in the morning and go to bed on time 4. Make a social connection. Surround yourself with positive people with positive energy. Connect with friends and family. 5. Get into the habit of meditating and mindfulness while doing everything. 6. Go outside and connect with nature. C. Prescription medications Patient was educated on the use of prescription medications for medical weight loss. This is a growing list and includes phentermine, Topamax,Qsymia, contrave, belviq and saxenda, wegovy All prescription medications could have side effects including but not limited to kidney stones, seizure disorder cardiac arrhythmias heart attack pancreatitis etc. etc.. Patient was encouraged to read the prescription insert and have coaching with their pharmacist and make an informed decision about taking medication and know that these medications are being prescribed with good intentions and we do not know how a patient would react to her medication. Sudden medications are FDA approved for weight loss and there is also off label use depending on patient's inability to afford medications in an attempt to lose weight D. Behavioral counseling was done to establish a relationship between food and an mood. Patient was provided information about local counseling and psychiatry and Dr Hernandez at [facility]. We would like to cover regular topics and build on low glycemic eating exercise mindful eating, using yoga and meditation along with deep breathing and connecting with friends and family. E. MASS PAT reviewed, Patient's current medications were reviewed and opinion was given on medication that can cause weight gain and can be substituted F. Patient was assessed for risk with obesity including and not limiting to atherosclerosis heart disease stroke kidney disease, restrictive lung disease, irritable bowel syndrome and overall mortality. Risk of developing prediabetes diabetes and metabolic syndrome was discussed G. Therapeutic plan: We have decided to make therapeutic plan which would include choosing wisely on calories restricting portion getting active, tracking weight, getting good quality sleep and working on time management H. Patient will follow up in (4) weeks for weight management Of note, some information is being carried forward from prior records for informational purposes only and is being cited so that efficiency, safety and quality of the patient's care is not compromised This note was prepared using voice recognition software and direct typing Please excuse inadvertent cattle and wheat farmer or typing errors, or uncorrected word substitutions Although every attempt has been made by the provider to proofread this document, occasional misspellings and typographical errors may still be present Due to the previous pandemic, and the use of personal protective equipment (PPE) This may decrease voice recognition accuracy Inadvertent cattle and wheat farmer errors may occur 11/07/2023 H/O gastric sleeve (ICD-10 - Z90.3) #Weight Management 11/07/2023 Increase Wegovy to 0.5 with options up to 1 as well Total time spent today was 30 minutes of which greater than 50% was spent on coordinating and counseling Patient has been found to be obese with a BMI of (33). Patient has class (1) obesity. We are a board certified obesity and weight management practice Patient has trialed behavioral modification, dietary restrictions and exercise for a minimum of 6 months The most recent [place] [employer] of clinical endocrinologists and [place] [employer]in[employer] guidelines recommend patients who have overweight BMI or obesity BMI, who also have metabolic syndrome, prediabetes, HLD, and other comorbidities or at risk of developing type 2 diabetes should aim for a weight loss goal of at least 10% of the baseline body weight Patient counseled regarding effects of GLP/GIP-1 agonists, and other FDA approved wgt loss meds with regards to a multifactorial approach of weight loss as mentioned above and not solely appetite suppression. We have discussed the mechanism of GLP-1's/GIP, dual incretins I think this would be fantastic option for her given her metabolic workup and body composition We have discussed the risks and benefits and side effects including/and not limited to Sarcopenia, intestinal obstruction, constipation, nausea, lethargy, headache Discussed importance of protein consumption for muscle maintenance as well as strength and resistance training ,probiotics, B12 complex biotin , iron and other nutrients, To help avoid telogen effluvium There is no history of medullary thyroid cancer or multiple endocrine neoplasia There is also no history of cardiovascular disease, hypertension, palpitations, or arrhythmias In the setting of potential stimulant/amphetamine use such as phentermine We have also discussed risks and benefits, and the use of compounded medications to help offset the national shortages as well as financial implications vs trade name drugs GLP must be discontinued upon initiation We have discussed the lifelong requirement of nutritional supplementation And adherence to an exercise regimen as well as importance We did discuss the neurohormonal changes that are occurring with these medications and Need for long-term Continued usage The patient understands and agrees Patient was reassured and welcomed to the practice. We discussed that we stress a hollistic medical approach with emphasis on lifestyle modification. Patient was informed that a healthy lifestyle with exercise and good eating habits can help reduce his risk of medical complications. He is explained that obesity increases his risk of diabetes, cardiovascular disease, or organ damage. We spent a lot of time discussing the relationship between food, exercise, sleep, mental health and obesity. Patient was counseled on the importance EATING local, organic food when possible. Patient was educated on clean 15 and dirty dozen. I provided information about reading books called The Food Rules by Venkat Osborne and Eat Fat Get Lean by Dr Cedric Andre. Self education is important in the journey for weight management. Patient was offered diagnostic testing. We want to measure visceral adiposity, advanced body composition, adverse lipids, fatty acid balance, risk for heart disease and atherosclerosis, markers of inflammation and genetic susceptibility. Patient was counseled on weight management and was advised to lose weight using A. Meal Replacement Products We discussed the lifelong requirement of nutritional supplementation and adherence to an exercise regimen as well as importance of dietary f/u Patient was educated on the replacement products called optifast. This is a good way of taking fixed amount of calories. It has been shown in studies to be ineffective weight management tool. We also recommend maintaining adequate protein intake and muscle composition, 1.5mg/kg This however has to be coupled with lifestyle intervention as well as laboratory data and EKG monitoring. It is impossible to know how a person will tolerate complete meal replacement. The side effects of meal replacement and weight loss could include syncopal attacks, dizziness, gallstones, potential cholecystectomy, possible heart attack and even . The benefits of meal replacement would be potential weight loss but no guarantees can be made. Meal replacement products are not covered by insurance. Once the patient has bought these products we cannot return them B. Lifestyle management which includes several strategies as below 1. Eat a low carbohydrate good fat good protein diet. Eliminate refined carbohydrates from the diet. Continue blood sugar and sugared beverages. Eat local organic when possible. Cook your own meals. Read food labels. None about healthy snacks. Portion control and food with low glycemic index 2. Exercise regularly. Try to get at least 6000 steps a day. Use a predominant to track activity level. Consider using apps like [employer], myfitnesspal, lose it, stick as needed for self-monitoring and weight management. Consider group exercises. Consider hiring a hardboard supervisor. Regular exercise is [place] to sustainable health and prevents as a buffer against weight regain 3. Sleep is most important for healing. Tried to sleep at least 8 hours a night. A good quality sleep needs a sleep ritual with ideal room temperature of around 68. It might help to take a shower and have no electronics in the room and sleep in a very dark room without artificial light. Start her sleep routine and get up early in the morning and go to bed on time 4. Make a social connection. Surround yourself with positive people with positive energy. Connect with friends and family. 5. Get into the habit of meditating and mindfulness while doing everything. 6. Go outside and connect with nature. C. Prescription medications Patient was educated on the use of prescription medications for medical weight loss. This is a growing list and includes phentermine, Topamax,Qsymia, contrave, belviq and saxenda, wegovy All prescription medications could have side effects including but not limited to kidney stones, seizure disorder cardiac arrhythmias heart attack pancreatitis etc. etc.. Patient was encouraged to read the prescription insert and have coaching with their pharmacist and make an informed decision about taking medication and know that these medications are being prescribed with good intentions and we do not know how a patient would react to her medication. Sudden medications are FDA approved for weight loss and there is also off label use depending on patient's inability to afford medications in an attempt to lose weight D. Behavioral counseling was done to establish a relationship between food and an mood. Patient was provided information about local counseling and psychiatry and Dr Hernandez at [facility]. We would like to cover regular topics and build on low glycemic eating exercise mindful eating, using yoga and meditation along with deep breathing and connecting with friends and family. E. MASS PAT reviewed, Patient's current medications were reviewed and opinion was given on medication that can cause weight gain and can be substituted F. Patient was assessed for risk with obesity including and not limiting to atherosclerosis heart disease stroke kidney disease, restrictive lung disease, irritable bowel syndrome and overall mortality. Risk of developing prediabetes diabetes and metabolic syndrome was discussed G. Therapeutic plan: We have decided to make therapeutic plan which would include choosing wisely on calories restricting portion getting active, tracking weight, getting good quality sleep and working on time management H. Patient will follow up in (4) weeks for weight management Of note, some information is being carried forward from prior records for informational purposes only and is being cited so that efficiency, safety and quality of the patient's care is not compromised This note was prepared using voice recognition software and direct typing Please excuse inadvertent cattle and wheat farmer or typing errors, or uncorrected word substitutions Although every attempt has been made by the provider to proofread this document, occasional misspellings and typographical errors may still be present Due to the previous pandemic, and the use of personal protective equipment (PPE) This may decrease voice recognition accuracy Inadvertent cattle and wheat farmer errors may occur 01/03/2024 Essential (primary) hypertension (ICD-10 - I10) Patient is here for weight management follow-up. We focused on significance of healthy lifestyle changes. We talked about need to track steps with goal between 6000-10,000 steps daily, focus on portion control, read food labels, get adequate sleep between 7 to 8 hours, get adequate rest to the body, meditate, frequent nutritious meals including vegetables and healthy choices of lean meats, fish, and elimination of refined carbohydrates. We also talked about mindfulness and mindful eating. Particular focus was on continuing to improve diet with high-protein and a variety of fruits and vegetables and maintain good portion control. Total time spent with 30 minutes with greater than 50% spent on counseling and coordinating care. 12/05/2023: Weight 242 pounds, BMI 32.82. Seca scan unable to be completed today due to equipment error. Patient demonstrates understanding. He is down 2 pounds from last visit which she was congratulated for. At previous visit discussed going up to 1 mg of Wegovy, patient states he has had trouble accessing this dose at the pharmacy, has been able to access 1.7 mg which she is using however has been dividing the dose to achieve 1 mg. Has been walking for exercise and golfing. Reports good portion control. Will continue Wegovy at this time. Educated on proper use of medication and expected side effect profile including but not limited to nausea, constipation, abdominal pain, vomiting, or acid reflux. He will follow-up in the office in approximately 4 weeks for weight management. 01/03/24: Weight 241 pounds, BMI 32.68. SECA scan completed interpreted with the patient. Between today and October the patient has lost 5 pounds of body fat. Maintaining approximately 80 pounds of muscle mass. Visceral adipose tissue index is still high. He is currently prescribed Wegovy 0.5 mg however states that his pharmacy does not have access to this dose and he has been receiving 1.7 mg. He has been trying to half the dose in order to mimic 0.5 mg. We discussed the importance of getting him a prescription of 0.5 mg of Wegovy for better control of the medication. Patient agrees. Also reports increased nausea in the past several days as well as shoulder pain. We discussed that joint pain may be a side effect of GLP-1 agonist. Also plans to increase his physical activity levels. Will send refill of Wegovy 0.5 mg once weekly to the pharmacy. Discussed proper use of the medication including rotating injection sites and expected side effect profile. Will also send Zofran to be used as needed for nausea. He will follow-up in the office in approximately 4 weeks for weight management. All patient questions answered at this time. # Atrial fibrillation: Patient is asymptomatic in office today without chest pain, shortness of breath, dyspnea on exertion, or diaphoresis. Continue Multaq 400 mg twice daily with meals. Cardiopulmonary exam unremarkable today in office. Will continue to monitor. Please follow-up with PCP. # Hypertension: Blood pressure stable in office today 124/78. Discussed red flag signs of hypertension including but not limited to headache, blurry vision, chest pain, abdominal pain, difficulty breathing, dizziness, or weakness. Will continue to monitor. All questions have been answered to patient's satisfaction. Patient verbalized understanding of diagnosis and treatments explained. Advised to call sooner prior to next visit it any questions/concerns arise. Case discussed with collaborating physician Diego Guerrero who reviewed the assessment and plan. Chart, medications, labs, vital signs reviewed. Dictation was accomplished with the use of [employer] voice recognition software, which is prone to medical misidentifications and grammatical errors. This are unintentional and the practitioner does try to identify and correct these, but some could still be present. Please do not hesitate to contact practitioner for clarification. 01/03/2024 Nausea (ICD-10 - R11.0) Patient is here for weight management follow-up. We focused on significance of healthy lifestyle changes. We talked about need to track steps with goal between 6000-10,000 steps daily, focus on portion control, read food labels, get adequate sleep between 7 to 8 hours, get adequate rest to the body, meditate, frequent nutritious meals including vegetables and healthy choices of lean meats, fish, and elimination of refined carbohydrates. We also talked about mindfulness and mindful eating. Particular focus was on continuing to improve diet with high-protein and a variety of fruits and vegetables and maintain good portion control. Total time spent with 30 minutes with greater than 50% spent on counseling and coordinating care. 12/05/2023: Weight 242 pounds, BMI 32.82. Seca scan unable to be completed today due to equipment error. Patient demonstrates understanding. He is down 2 pounds from last visit which she was congratulated for. At previous visit discussed going up to 1 mg of Wegovy, patient states he has had trouble accessing this dose at the pharmacy, has been able to access 1.7 mg which she is using however has been dividing the dose to achieve 1 mg. Has been walking for exercise and golfing. Reports good portion control. Will continue Wegovy at this time. Educated on proper use of medication and expected side effect profile including but not limited to nausea, constipation, abdominal pain, vomiting, or acid reflux. He will follow-up in the office in approximately 4 weeks for weight management. 01/03/24: Weight 241 pounds, BMI 32.68. SECA scan completed interpreted with the patient. Between today and October the patient has lost 5 pounds of body fat. Maintaining approximately 80 pounds of muscle mass. Visceral adipose tissue index is still high. He is currently prescribed Wegovy 0.5 mg however states that his pharmacy does not have access to this dose and he has been receiving 1.7 mg. He has been trying to half the dose in order to mimic 0.5 mg. We discussed the importance of getting him a prescription of 0.5 mg of Wegovy for better control of the medication. Patient agrees. Also reports increased nausea in the past several days as well as shoulder pain. We discussed that joint pain may be a side effect of GLP-1 agonist. Also plans to increase his physical activity levels. Will send refill of Wegovy 0.5 mg once weekly to the pharmacy. Discussed proper use of the medication including rotating injection sites and expected side effect profile. Will also send Zofran to be used as needed for nausea. He will follow-up in the office in approximately 4 weeks for weight management. All patient questions answered at this time. # Atrial fibrillation: Patient is asymptomatic in office today without chest pain, shortness of breath, dyspnea on exertion, or diaphoresis. Continue Multaq 400 mg twice daily with meals. Cardiopulmonary exam unremarkable today in office. Will continue to monitor. Please follow-up with PCP. # Hypertension: Blood pressure stable in office today 124/78. Discussed red flag signs of hypertension including but not limited to headache, blurry vision, chest pain, abdominal pain, difficulty breathing, dizziness, or weakness. Will continue to monitor. All questions have been answered to patient's satisfaction. Patient verbalized understanding of diagnosis and treatments explained. Advised to call sooner prior to next visit it any questions/concerns arise. Case discussed with collaborating physician Diego Guerrero who reviewed the assessment and plan. Chart, medications, labs, vital signs reviewed. Dictation was accomplished with the use of [employer] voice recognition software, which is prone to medical misidentifications and grammatical errors. This are unintentional and the practitioner does try to identify and correct these, but some could still be present. Please do not hesitate to contact practitioner for clarification. 11/07/2023 ROLO on CPAP (ICD-10 - G47.33) #Weight Management 11/07/2023 Increase Wegovy to 0.5 with options up to 1 as well Total time spent today was 30 minutes of which greater than 50% was spent on coordinating and counseling Patient has been found to be obese with a BMI of (33). Patient has class (1) obesity. We are a board certified obesity and weight management practice Patient has trialed behavioral modification, dietary restrictions and exercise for a minimum of 6 months The most recent [place] [employer] of clinical endocrinologists and [place] [employer] guidelines recommend patients who have overweight BMI or obesity BMI, who also have metabolic syndrome, prediabetes, HLD, and other comorbidities or at risk of developing type 2 diabetes should aim for a weight loss goal of at least 10% of the baseline body weight Patient counseled regarding effects of GLP/GIP-1 agonists, and other FDA approved wgt loss meds with regards to a multifactorial approach of weight loss as mentioned above and not solely appetite suppression. We have discussed the mechanism of GLP-1's/GIP, dual incretins I think this would be fantastic option for her given her metabolic workup and body composition We have discussed the risks and benefits and side effects including/and not limited to Sarcopenia, intestinal obstruction, constipation, nausea, lethargy, headache Discussed importance of protein consumption for muscle maintenance as well as strength and resistance training ,probiotics, B12 complex biotin , iron and other nutrients, To help avoid telogen effluvium There is no history of medullary thyroid cancer or multiple endocrine neoplasia There is also no history of cardiovascular disease, hypertension, palpitations, or arrhythmias In the setting of potential stimulant/amphetamine use such as phentermine We have also discussed risks and benefits, and the use of compounded medications to help offset the national shortages as well as financial implications vs trade name drugs GLP must be discontinued upon initiation We have discussed the lifelong requirement of nutritional supplementation And adherence to an exercise regimen as well as importance We did discuss the neurohormonal changes that are occurring with these medications and Need for long-term Continued usage The patient understands and agrees Patient was reassured and welcomed to the practice. We discussed that we stress a hollistic medical approach with emphasis on lifestyle modification. Patient was informed that a healthy lifestyle with exercise and good eating habits can help reduce his risk of medical complications. He is explained that obesity increases his risk of diabetes, cardiovascular disease, or organ damage. We spent a lot of time discussing the relationship between food, exercise, sleep, mental health and obesity. Patient was counseled on the importance EATING local, organic food when possible. Patient was educated on clean 15 and dirty dozen. I provided information about reading books called The Food Rules by Venkat Osborne and Eat Fat Get Lean by Dr Cedric Andre. Self education is important in the journey for weight management. Patient was offered diagnostic testing. We want to measure visceral adiposity, advanced body composition, adverse lipids, fatty acid balance, risk for heart disease and atherosclerosis, markers of inflammation and genetic susceptibility. Patient was counseled on weight management and was advised to lose weight using A. Meal Replacement Products We discussed the lifelong requirement of nutritional supplementation and adherence to an exercise regimen as well as importance of dietary f/u Patient was educated on the replacement products called optifast. This is a good way of taking fixed amount of calories. It has been shown in studies to be ineffective weight management tool. We also recommend maintaining adequate protein intake and muscle composition, 1.5mg/kg This however has to be coupled with lifestyle intervention as well as laboratory data and EKG monitoring. It is impossible to know how a person will tolerate complete meal replacement. The side effects of meal replacement and weight loss could include syncopal attacks, dizziness, gallstones, potential cholecystectomy, possible heart attack and even . The benefits of meal replacement would be potential weight loss but no guarantees can be made. Meal replacement products are not covered by insurance. Once the patient has bought these products we cannot return them B. Lifestyle management which includes several strategies as below 1. Eat a low carbohydrate good fat good protein diet. Eliminate refined carbohydrates from the diet. Continue blood sugar and sugared beverages. Eat local organic when possible. Cook your own meals. Read food labels. None about healthy snacks. Portion control and food with low glycemic index 2. Exercise regularly. Try to get at least 6000 steps a day. Use a predominant to track activity level. Consider using apps like [employer], [employer], lose it, stick as needed for self-monitoring and weight management. Consider group exercises. Consider hiring a hardboard supervisor. Regular exercise is [place] to sustainable health and prevents as a buffer against weight regain 3. Sleep is most important for healing. Tried to sleep at least 8 hours a night. A good quality sleep needs a sleep ritual with ideal room temperature of around 68. It might help to take a shower and have no electronics in the room and sleep in a very dark room without artificial light. Start her sleep routine and get up early in the morning and go to bed on time 4. Make a social connection. Surround yourself with positive people with positive energy. Connect with friends and family. 5. Get into the habit of meditating and mindfulness while doing everything. 6. Go outside and connect with nature. C. Prescription medications Patient was educated on the use of prescription medications for medical weight loss. This is a growing list and includes phentermine, Topamax,Qsymia, contrave, belviq and saxenda, wegovy All prescription medications could have side effects including but not limited to kidney stones, seizure disorder cardiac arrhythmias heart attack pancreatitis etc. etc.. Patient was encouraged to read the prescription insert and have coaching with their pharmacist and make an informed decision about taking medication and know that these medications are being prescribed with good intentions and we do not know how a patient would react to her medication. Sudden medications are FDA approved for weight loss and there is also off label use depending on patient's inability to afford medications in an attempt to lose weight D. Behavioral counseling was done to establish a relationship between food and an mood. Patient was provided information about local counseling and psychiatry and Dr Hernandez at [facility]. We would like to cover regular topics and build on low glycemic eating exercise mindful eating, using yoga and meditation along with deep breathing and connecting with friends and family. E. MASS PAT reviewed, Patient's current medications were reviewed and opinion was given on medication that can cause weight gain and can be substituted F. Patient was assessed for risk with obesity including and not limiting to atherosclerosis heart disease stroke kidney disease, restrictive lung disease, irritable bowel syndrome and overall mortality. Risk of developing prediabetes diabetes and metabolic syndrome was discussed G. Therapeutic plan: We have decided to make therapeutic plan which would include choosing wisely on calories restricting portion getting active, tracking weight, getting good quality sleep and working on time management H. Patient will follow up in (4) weeks for weight management Of note, some information is being carried forward from prior records for informational purposes only and is being cited so that efficiency, safety and quality of the patient's care is not compromised This note was prepared using voice recognition software and direct typing Please excuse inadvertent cattle and wheat farmer or typing errors, or uncorrected word substitutions Although every attempt has been made by the provider to proofread this document, occasional misspellings and typographical errors may still be present Due to the previous pandemic, and the use of personal protective equipment (PPE) This may decrease voice recognition accuracy Inadvertent cattle and wheat farmer errors may occur 08/30/2023 ROLO on CPAP (ICD-10 - G47.33) Start Wegovy 0.25 Total time spent today was 60 minutes of which greater than 50% was spent on coordinating and counseling Patient has been found to be obese with a BMI of (34). Patient has class (1) obesity. We are a board certified obesity and weight management practice Patient has trialed behavioral modification, dietary restrictions and exercise for a minimum of 6 months The most recent [place] [employer] of clinical endocrinologists and [place] [employer]ocrin[employer] guidelines recommend patients who have overweight BMI or obesity BMI, who also have metabolic syndrome, prediabetes, HLD, and other comorbidities or at risk of developing type 2 diabetes should aim for a weight loss goal of at least 10% of the baseline body weight Patient counseled regarding effects of GLP/GIP-1 agonists, and other FDA approved wgt loss meds with regards to a multifactorial approach of weight loss as mentioned above and not solely appetite suppression. We have discussed the mechanism of GLP-1's/GIP, dual incretins I think this would be fantastic option for her given her metabolic workup and body composition We have discussed the risks and benefits and side effects including/and not limited to Sarcopenia, intestinal obstruction, constipation, nausea, lethargy, headache Discussed importance of protein consumption for muscle maintenance as well as strength and resistance training ,probiotics, B12 complex biotin , iron and other nutrients, To help avoid telogen effluvium There is no history of medullary thyroid cancer or multiple endocrine neoplasia There is also no history of cardiovascular disease, hypertension, palpitations, or arrhythmias In the setting of potential stimulant/amphetamine use such as phentermine We have also discussed risks and benefits, and the use of compounded medications to help offset the national shortages as well as financial implications vs trade name drugs GLP must be discontinued upon initiation We have discussed the lifelong requirement of nutritional supplementation And adherence to an exercise regimen as well as importance We did discuss the neurohormonal changes that are occurring with these medications and Need for long-term Continued usage The patient understands and agrees Patient was reassured and welcomed to the practice. We discussed that we stress a hollistic medical approach with emphasis on lifestyle modification. Patient was informed that a healthy lifestyle with exercise and good eating habits can help reduce his risk of medical complications. He is explained that obesity increases his risk of diabetes, cardiovascular disease, or organ damage. We spent a lot of time discussing the relationship between food, exercise, sleep, mental health and obesity. Patient was counseled on the importance EATING local, organic food when possible. Patient was educated on clean 15 and dirty dozen. I provided information about reading books called The Food Rules by Venkat Osborne and Eat Fat Get Lean by Dr Cedric Andre. Self education is important in the journey for weight management. Patient was offered diagnostic testing. We want to measure visceral adiposity, advanced body composition, adverse lipids, fatty acid balance, risk for heart disease and atherosclerosis, markers of inflammation and genetic susceptibility. Patient was counseled on weight management and was advised to lose weight using A. Meal Replacement Products We discussed the lifelong requirement of nutritional supplementation and adherence to an exercise regimen as well as importance of dietary f/u Patient was educated on the replacement products called optifast. This is a good way of taking fixed amount of calories. It has been shown in studies to be ineffective weight management tool. We also recommend maintaining adequate protein intake and muscle composition, 1.5mg/kg This however has to be coupled with lifestyle intervention as well as laboratory data and EKG monitoring. It is impossible to know how a person will tolerate complete meal replacement. The side effects of meal replacement and weight loss could include syncopal attacks, dizziness, gallstones, potential cholecystectomy, possible heart attack and even . The benefits of meal replacement would be potential weight loss but no guarantees can be made. Meal replacement products are not covered by insurance. Once the patient has bought these products we cannot return them B. Lifestyle management which includes several strategies as below 1. Eat a low carbohydrate good fat good protein diet. Eliminate refined carbohydrates from the diet. Continue blood sugar and sugared beverages. Eat local organic when possible. Cook your own meals. Read food labels. None about healthy snacks. Portion control and food with low glycemic index 2. Exercise regularly. Try to get at least 6000 steps a day. Use a predominant to track activity level. Consider using apps like [employer], myfitnesspal, lose it, stick as needed for self-monitoring and weight management. Consider group exercises. Consider hiring a hardboard supervisor. Regular exercise is [place] to sustainable health and prevents as a buffer against weight regain 3. Sleep is most important for healing. Tried to sleep at least 8 hours a night. A good quality sleep needs a sleep ritual with ideal room temperature of around 68. It might help to take a shower and have no electronics in the room and sleep in a very dark room without artificial light. Start her sleep routine and get up early in the morning and go to bed on time 4. Make a social connection. Surround yourself with positive people with positive energy. Connect with friends and family. 5. Get into the habit of meditating and mindfulness while doing everything. 6. Go outside and connect with nature. C. Prescription medications Patient was educated on the use of prescription medications for medical weight loss. This is a growing list and includes phentermine, Topamax,Qsymia, contrave, belviq and saxenda, wegovy All prescription medications could have side effects including but not limited to kidney stones, seizure disorder cardiac arrhythmias heart attack pancreatitis etc. etc.. Patient was encouraged to read the prescription insert and have coaching with their pharmacist and make an informed decision about taking medication and know that these medications are being prescribed with good intentions and we do not know how a patient would react to her medication. Sudden medications are FDA approved for weight loss and there is also off label use depending on patient's inability to afford medications in an attempt to lose weight D. Behavioral counseling was done to establish a relationship between food and an mood. Patient was provided information about local counseling and psychiatry and Dr Hernandez at [facility]. We would like to cover regular topics and build on low glycemic eating exercise mindful eating, using yoga and meditation along with deep breathing and connecting with friends and family. E. MASS PAT reviewed, Patient's current medications were reviewed and opinion was given on medication that can cause weight gain and can be substituted F. Patient was assessed for risk with obesity including and not limiting to atherosclerosis heart disease stroke kidney disease, restrictive lung disease, irritable bowel syndrome and overall mortality. Risk of developing prediabetes diabetes and metabolic syndrome was discussed G. Therapeutic plan: We have decided to make therapeutic plan which would include choosing wisely on calories restricting portion getting active, tracking weight, getting good quality sleep and working on time management H. Patient will follow up in (4) weeks for weight management Of note, some information is being carried forward from prior records for informational purposes only and is being cited so that efficiency, safety and quality of the patient's care is not compromised This note was prepared using voice recognition software and direct typing Please excuse inadvertent cattle and wheat farmer or typing errors, or uncorrected word substitutions Although every attempt has been made by the provider to proofread this document, occasional misspellings and typographical errors may still be present Due to the previous pandemic, and the use of personal protective equipment (PPE) This may decrease voice recognition accuracy Inadvertent cattle and wheat farmer errors may occur PLAN OF TREATMENT Next Appt Details Provider Name:ASPEN ALEJANDRE , 02/12/2024 02:00:00 PM, [address] [facility], [facility] [address], [place], [id number], Insurance Providers Payer Name Payer Address Payer Phone Subscriber Number Group Number Insured Name Patient Relationship to Insured Coverage Start Date Coverage End Date [facility] [address] [place] [address] [phone] [id number] Omar Goldman Self - patient is the insured 4 MEDICAL (GENERAL) HISTORY Medical History History ICD Code high blood pressure Afib sleep apnea weight gain/loss arthritis seasonal allergies
--- OUTSIDE RECORDS SUMMARY | 2024-01-24 03:02 | XMS_ITS ---
Author Organization [employer] [facility] Address [address] [place] [address] Care Team Providers Care Envelope Press Operator Name Role Phone Kuldip Stephens Primary Care Provider OLMAN Beal Unavailable [phone] ASPEN ALEJANDRE Unavailable [phone] REASON FOR VISIT pt her for wt mgt follow up MEDICATIONS Medication SIG (Take, Route, Frequency, Duration) Notes Start Date End Date Status Multaq 400 MG 1 tablet with meals Orally Twice a day Active Wegovy 0.25 MG/0.5ML 0.25mg Subcutaneous weekly for 30 days 08/30/2023 Active Wegovy 1 MG/0.5ML 1mg Subcutaneous wee kly for 30 days 11/07/2023 Active Wegovy 0.5 MG/0.5ML 0.5mg Subcutaneous w eekly for 30 days 10/01/2023 Not-Taking Wegovy 1 MG/0.5ML 1mg Subcutaneous wee kly for 30 days 10/02/2023 Not-Taking Wegovy 1.7 MG/0.75ML 1.7mg Subcutaneous weekly for 30 days 11/09/2023 Active PROBLEMS Problem Type ICD Code Onset Dates Problem Status W/U Status Risk SNOMED Code Notes Problem Adult-onset obesity (E66.9) Active confirmed 615576736 Problem BMI 32.0-32.9,adul t (Z68.32) Active confirmed 685824415 VITAL SIGNS Heart Rate 86 /min 12/05/2023 Blood pressure systolic 110 mm Hg 12/05/19 24 Blood pressure diastolic 74 mm Hg 024 Weight 242 lbs 12/05/2023 BMI 32.82 kg/m2 12/05/2023 Height 72 in 12/05/2023 Oximetry 96 % 12/05/2023 Encounters Encounter Location Date Provider Diagnosis [facility] [address] [facility] [address] [facility] [address] [place] [address] 12/05/2023 ASPEN ALEJANDRE Adult-onset obesity E66.9 ; BMI 32.0-32.9,adult Z68.32 ; H/O gastric sleeve Z90.3 ; PAF (paroxysmal atrial fibrillation) I48.0 and Essential (primary) hypertension I10 ASSESSMENTS Encounter Date Diagnosis Assessment Notes Treatment Notes Treatment Clinical Notes Section Notes 12/05/2023 Adult-onset obesity (ICD-10 - E66.9) Patient [...] Dictation was accomplished with the use of [email or web address] voice recognition software, which is prone to medical misidentifications and grammatical errors. This are unintentional and the practitioner does try to identify and correct these, but some could still be present. Please do not hesitate to contact practitioner for clarification. 12/05/2023 BMI 32.0-32.9,adult (ICD-10 - Z68.32) Patient [...] Dictation was accomplished with the use of [email or web address] voice recognition software, which is prone to [...] Dictation was accomplished with the use of [email or web address] voice recognition software, which is prone to medical misidentifications and grammatical errors. This are unintentional and the practitioner does try to identify and correct these, but some could still be present. Please do not hesitate to contact practitioner for clarification. 12/05/2023 PAF (paroxysmal atrial fibrillation) (ICD-10 - [...] Dictation was accomplished with the use of [email or web address] voice recognition software, which is prone to [...] Dictation was accomplished with the use of [email or web address] voice recognition software, which is prone to medical misidentifications and grammatical errors. This are unintentional and the practitioner does try to identify and correct these, but some could still be present. Please do not hesitate to contact practitioner for clarification. PLAN OF TREATMENT Next Appt Details Provider Name:ASPEN ALEJANDRE , 02/12/2024 02:00:00 PM, [address] [place] [address] [address], [place], [address], Progress Notes * Omar ALMANZADOB:1970 (53 yo M)Acc No.[id number]:12/05/2023 Patient:??Omar ALMANZA Provider:??ASPEN ALEJANDRE :1970?Age:53 Y?Sex:Ma le Date:12/05/2023 Address:[address] [place], [place] [id number] Pcp:Kuldip Stephens Subjective: * Chief Complaints: * ?1. Pt her for wt mgt f ollow up. * HPI: ?Constitutional:? Keith is a 53-year-old male with history of obesity status post gastric sleeve, hypertension, and paroxysmal atrial fibrillation who presents the office today for weight management follow-up. Goal weight is 220 pounds. At previous visit weight was 244 pounds, BMI 33.09. Patient states he has been using Wegovy 1.7 mg as he has had trouble with acquiring the lower doses. He states that he is not using the full dose however dividing those doses. Reports no side effects at this time, tolerating medication well. He has been reducing portion control with consuming several small meals throughout the day. He is walking for exercise and also golfs occasionally. He is maintaining hydration at this time. Overall he is very content with his current progress. * ROS:?Constitutional: Denies sudden weight loss, fever, night sweats, excessive fatigue, or changes in sleep. ???CV: Denies chest pain or heart palpitations. ???Respiratory: Denies SOB, wheezing, or pleuritic pain. ???GI: Denies n/v/d, constipation, blood in stools, pain associated with eating, indigestion, or difficulty/pain with swallowing. ???MSK: Denies back pain, joint deformity/pain, or muscle weakness. ???Integumentary: Denies skin changes. ???Endocrine: Denies polyuria, polyphagia, or polydipsia. No heat/cold intolerance or excessive thirst. * Medical History:??High blood pressure, Afib, Sleep apnea, Weight gain/loss, Arthritis, Seasonal allergies. * Medications:??Taking Multaq 400 MG Tablet 1 tablet with meals Orally Twice a day , Taking Wegovy 0.25 MG/0.5ML Solution Auto-injector 0.25mg Subcutaneous weekly , Taking Wegovy 1 MG/0.5ML Solution Auto-injector 1mg Subcutaneous weekly , Taking Wegovy 1.7 MG/0.75ML Solution Auto-injector 1.7mg Subcutaneous weekly , Not- Taking Wegovy 0.5 MG/0.5ML Solution Auto-injector 0.5mg Subcutaneous weekly , Not- Taking Wegovy 1 MG/0.5ML Solution Auto-injector 1mg Subcutaneous weekly , Medication List reviewed and reconciled with the patient Objective: * Vitals:??HR:86/min, BP:110/7 4mm Hg, Wt:242lbs, BMI:32.82Index, Ht: 72 in, Oxygen sat %:96%. * Physical Examination:?General: Age appropriate, well-appearing 53-year-old male in no acute distress, speaking in full sentences without respiratory compromise. Well groomed, well developed. Alert, interactive. ?Skin: Warm, dry and intact. No lesions/rashes/erythema. ?HEENT: Normocephalic/atraumatic. ?Neck/Thyroid: Thyroid symmetrical, nonenlarged, and free of nodules to palpation. ?Lungs: Clear to auscultation bilaterally. ?CV: Regular rate and rhythm without murmurs, rubs, or gallops. 2+ radial pulses bilaterally. ?Neuro: CN II-XII grossly intact. Steady gait with non-assisted ambulation observed. ?Psych: Stable mood and affect. Assessment: * Assessment: 1.??Adult-onset obesity - E6 6.9 (Primary)??2.??BMI 32.0-32.9,adult - Z68.32??3.??H/O gastric sleeve - Z90.3??4.??PAF (paroxysmal atrial fibrillation) - I48.0??5.??Essential (primary) hypertension - I10?? Patient is here for weight m anagement follow-up. We focused on significance of healthy [...] Dictation was accomplished with the use of [email or web address] voice recognition software, which is prone to medical misidentifications and grammatical errors. This are unintentional and the practitioner does try to identify and correct these, but some could still be present. Please do not hesitate to contact practitioner for clarification. Plan: * Treatment: * Procedure Codes:??68863 P/M DEPUTY COUNTY CLERK, INDIV 15 MIN * Images: Billing Information: * Visit Code:?? 55302 Office Visit, Est Pt., Level 4. * Procedure Codes:?? 91639 P/M DEPUTY COUNTY CLERK, INDIV 15 MIN. * Sign off status: Completed true * Provider:??ASPEN ALEJANDRE Date:?? 024 History and Physical Notes * HPI (History of Present Illness) Category Sub-Category Detail Notes Category Not es Constitutional Keith is a 53-y ear-old male with history of obesity status post gastric sleeve, hypertension, and paroxysmal atrial fibrillation who presents the office today for weight management follow-up. Goal weight is 220 pounds. At previous visit weight was 244 pounds, BMI 33.09. Patient states he has been using Wegovy 1.7 mg as he has had trouble with acquiring the lower doses. He states that he is not using the full dose however dividing those doses. Reports no side effects at this time, tolerating medication well. He has been reducing portion control with consuming several small meals throughout the day. He is walking for exercise and also golfs occasionally. He is maintaining hydration at this time. Overall he is very content with his current progress. Physical Examination Category Sub-Category Detail Notes Section Note s General: Age appropriate, well-appearing 53-year-old male in no acute distress, speaking in full sentences without respiratory compromise. Well groomed, well developed. Alert, interactive. Skin: Warm, dry and intact. No lesions/rashes/erythema. HEENT: Normocephalic/atraumatic. Neck/Thyroid: Thyroid symmetrical, nonenlarged, and free of nodules to palpation. Lungs: Clear to auscultation bilaterally. CV: Regular rate and rhythm without murmurs, rubs, or gallops. 2+ radial pulses bilaterally. Neuro: CN II-XII grossly intact. Steady gait with non-assisted ambulation observed. Psych: Stable mood and affect.
--- OUTSIDE RECORDS SUMMARY | 2024-01-24 03:02 | XMS_ITS ---
Author Organization [facility] Address [address] [place] [address] Care Team Providers Care Technical Specialist Cytology Name Role Phone Kuldip Stephens Primary Care Provider OLMAN Beal Unavailable [phone] ASPEN ALEJANDRE Unavailable [phone] ALLERGIES No Known Allergies REASON FOR VISIT pt here for wt mgt follow up MEDICATIONS Medication SIG (Take, Route, Frequency, Duration) Notes Start Date End Date Status Ondansetron HCl 8 MG 1 tablet as needed Orally Once a day for 30 days 01/03/2024 Active Wegovy 0.5 MG/0.5ML Inject 0.5 mg Subcut aneous Once weekly for 28 days 11/09/2023 Active Multaq 400 MG 1 tablet with meals Orally Twice a day Active Wegovy 0.5 MG/0.5ML 0.5mg Subcutaneous w eekly for 30 days 10/01/2023 Not-Taking Wegovy 1 MG/0.5ML 1mg Subcutaneous wee kly for 30 days 10/02/2023 Not-Taking VITAL SIGNS Heart Rate 62 /min 01/03/2024 Blood pressure systolic 124 mm Hg 01/03/20 24 Blood pressure diastolic 78 mm Hg 024 Weight 241 lbs 01/03/2024 BMI 32.68 kg/m2 01/03/2024 Height 72 in 01/03/2024 Oximetry 98 % 01/03/2024 Encounters Encounter Location Date Provider Diagnosis [facility] [address] [facility] [address] [place] [address] 01/03/2024 ASPEN ALEJANDRE BMI 32.0-32.9,adult Z68.32 ; Adult-onset obesity E66.9 ; H/O gastric sleeve Z90.3 ; PAF (paroxysmal atrial fibrillation) I48.0 ; Essential (primary) hypertension I10 and Nausea R11.0 ASSESSMENTS Encounter Date Diagnosis Assessment Notes Treatment Notes Treatment Clinical Notes Section Notes 01/03/2024 BMI 32.0-32.9,adult (ICD-10 - Z68.32) Patient [...] Dictation was accomplished with the use of [employer] voice recognition software, which is prone to [...] Dictation was accomplished with the use of [employer] voice recognition software, which is prone to [...] Dictation was accomplished with the use of [employer] voice recognition software, which is prone to [...] Dictation was accomplished with the use of [employer] voice recognition software, which is prone to medical misidentifications and grammatical errors. This are unintentional and the practitioner does try to identify and correct these, but some could still be present. Please do not hesitate to contact practitioner for clarification. 01/03/2024 Essential (primary) hypertension (ICD-10 - I10) [...] Dictation was accomplished with the use of [employer] voice recognition software, which is prone to [...] Dictation was accomplished with the use of [employer] voice recognition software, which is prone to medical misidentifications and grammatical errors. This are unintentional and the practitioner does try to identify and correct these, but some could still be present. Please do not hesitate to contact practitioner for clarification. PLAN OF TREATMENT Medication Medication Name Sig Start Date Stop Date Notes Ondansetron HCl 8 MG 1 tablet as needed Orally Once a day for 30 days 01/03/2024 Wegovy 0.5 MG/0.5ML Inject 0.5 mg Subcut aneous Once weekly for 28 days 11/09/2023 Next Appt Details Provider Name:ASPEN ALEJANDRE , 02/12/2024 02:00:00 PM, [address] [facility], [facility] [address], [place], [address], Progress Notes * Omar ALMANZADOB:1970 (53 yo M)Acc No.[id number]:01/03/2024 Patient:??Omar ALMANZA Provider:??ASPEN ALEJANDRE :1970?Age:53 Y?Sex:Ma le Date:01/03/2024 Address:[address] [place], [place] [id number] Pcp:Kuldip Stephens Subjective: * Chief Complaints: * ?1. Pt here for wt mgt follow up. * HPI: ?Constitutional:? [email or web address] [email or web address] ?Keith is a 53-year-old male history of obesity and atrial fibrillation on Multaq who presents the office today for weight management follow-up. At his previous visit on 12/05/2023 weight was 242 pounds, BMI 32.82. He is currently on Wegovy. He states that his prescribed dose is 0.5 mg however his pharmacy does not have access to this current dose and he has been receiving 1.7 mg. Reports that he he attempts to decrease the dose to mimic 0.5 mg to his best ability. We discussed the importance of getting him on the correct dose to make sure that he is not over dosing and experiencing side effects. Reports that he has been very nauseous with the past couple of days and has also had pain in his shoulders. Reports he is not currently exercising and is aware he needs to increase his physical activity to increase weight loss. * ROS:?Constitutional: Denies sudden weight loss, fever, night sweats, excessive fatigue, or changes in sleep. ???CV: Denies chest pain or heart palpitations. ???Respiratory: Denies SOB, wheezing, or pleuritic pain. ???GI: + Reports nausea. Denies v/d, constipation, blood in stools, pain associated with eating, indigestion, or difficulty/pain with swallowing. ???MSK: + Reports bilateral shoulder pain. Denies back pain, or muscle weakness. ???Integumentary: Denies skin changes. ???Endocrine: Denies polyuria, polyphagia, or polydipsia. No heat/cold intolerance or excessive thirst. * Medical History:??High blood pressure, Afib, Sleep apnea, Weight gain/loss, Arthritis, Seasonal allergies. * Surgical History:??Denies Pa st Surgical History. * Hospitalization/Major Diagno stic Procedure:??Denies Past Hospitalization. * Family History:??Father: dec eased.??Mother: alive.?? father - cancer mother- obesity, arthritis. * Social History:?Pt denies having any concerns with current living situation ???denies all tobacco use, recreational drug use. ???admits to drinking alcohol 2-3x weekly. * Medications:??Taking Multaq 400 MG Tablet 1 tablet with meals Orally Twice a day , Taking Wegovy 0.5 MG/0.5ML Solution Auto-injector Inject 0.5 mg Subcutaneous weekly , Not-Taking Wegovy 0.5 MG/0.5ML Solution Auto-injector 0.5mg Subcutaneous weekly , Not-Taking Wegovy 1 MG/0.5ML Solution Auto-injector 1mg Subcutaneous weekly , Discontinued Wegovy 0.25 MG/0.5ML Solution Auto-injector 0.25mg Subcutaneous weekly , Discontinued Wegovy 1 MG/0.5ML Solution Auto-injector 1mg Subcutaneous weekly , Medication List reviewed and reconciled with the patient * Allergies:??N.K.D.A. Objective: * Vitals:??HR:62/min, BP:124/7 8mm Hg, Wt:241lbs, BMI:32.68Index, Ht: 72 in, Oxygen sat %:98%. * Physical Examination:?General: Age appropriate, well-appearing 53-year-old [...] atrial fibrillation) - I48.0??5.??Essential (primary) hypertension - I10??6.??Nausea - R11.0?? Patient is here for weight m anagement [...] Dictation was accomplished with the use of [employer] voice recognition software, which is prone to medical misidentifications and grammatical errors. This are unintentional and the practitioner does try to identify and correct these, but some could still be present. Please do not hesitate to contact practitioner for clarification. Plan: * Treatment: 2.??Nausea?? Start Ondansetron HCl Tablet, 8 MG, 1 tablet as needed, Orally, Once a day for nausea/vomiting, 30 days, 30, Refills 1.? * Procedure Codes:??83990 P/M NAIL PULLER, INDIV 15 MIN * Images: Billing Information: * Visit Code:?? 73349 Office Visit, Est Pt., Level 4. * Procedure Codes:?? 24954 P/M NAIL PULLER, INDIV 15 MIN. * Sign off status: Completed true * Provider:??ASPEN ALEJANDRE Date:?? 024 History and Physical Notes * HPI (History of Present Illness) Category Sub-Category Detail Notes Category Not es Constitutional [facility] Keith is a 53-year-old male history of obesity and atrial fibrillation on Multaq who presents the office today for weight management follow-up. At his previous visit on 12/05/2023 weight was 242 pounds, BMI 32.82. He is currently on Wegovy. He states that his prescribed dose is 0.5 mg however his pharmacy does not have access to this current dose and he has been receiving 1.7 mg. Reports that he he attempts to decrease the dose to mimic 0.5 mg to his best ability. We discussed the importance of getting him on the correct dose to make sure that he is not over dosing and experiencing side effects. Reports that he has been very nauseous with the past couple of days and has also had pain in his shoulders. Reports he is not currently exercising and is aware he needs to increase his physical activity to increase weight loss. Physical Examination Category Sub-Category Detail Notes Section [...]
== END 2024-01-18 14:31 | disposition home or self-care (01) ==
PROVIDERS: PCP Internal Medicine; Visit Provider Internal Medicine Cardiovascular Disease
DX: I48.0 Paroxysmal atrial fibrillation (principal)
CPT/HCPCS: 93010; 99214

== ENCOUNTER → 2024-01-18 14:04 | Outpatient (BNVA) | payer OTHER, SELFPAY | PROVIDERS: PCP Internal Medicine; Visit Provider Internal Medicine Cardiovascular Disease | DX: I48.0 Paroxysmal atrial fibrillation (principal); G47.30 Sleep apnea, unspecified; Z99.89 Dependence on other enabling machines and devices | CPT/HCPCS: 93005 ==

== ENCOUNTER → 2024-02-27 13:49 | Outpatient (BNVA) | payer OTHER, SELFPAY | PROVIDERS: PCP Internal Medicine; Visit Provider Internal Medicine Cardiovascular Disease ==

== ENCOUNTER 2024-03-18 10:24 | Emergency (ER) | payer OTHER, SELFPAY ==
--- NOTE | 2024-03-18 10:55 | ECG_ITS ---
Test Reason : tachy, cp Blood Pressure : */* mmHG Vent. Rate : 76 BPM Atrial Rate : * BPM P-R Int : * ms QRS Dur : 92 ms QT Int : 390 ms P-R-T Axes : * 2 12 degrees QTcB Int : 438 ms Atrial fibrillation Abnormal ECG When compared with ECG of 04-May-2022 13:35, Atrial fibrillation has replaced Sinus rhythm Referred By: Remington Henry Electronically Signed By: Brian Rao
[2024-03-18 10:58] VITALS: BP 120/88; PULSE 89; RESP 16; TEMP 36.7; O2SAT 98; BMI 26.9
--- NOTE | 2024-03-18 11:42 | ED.GENADULT ---
HPI - General Adult General Chief complaint: Arrhythmia/Palpitations Stated complaint: PT STS HEART RACING,SCHED CARDIOVERSION PER EMS Time Seen by Provider: 03/18/24 11:04 Source: patient, RN notes reviewed and old records reviewed Mode of arrival: ambulatory Limitations: no limitations History of Present Illness ED Provider: Yash HPI narrative: 53-year-old male with past medical history significant for atrial fibrillation may Eliquis, GERD, obesity presents for evaluation of heart palpitations. Patient reports that he got into a verbal altercation at work today. He reports that he felt as though his heart was racing Patient reports ?it felt like it wanted to jump out of my chest. ? Patient states that this lasted about 45 minutes before resolving. He had some minor chest pressure during the episode He has no other complaints or concerns at this time Related Data Previous Rx's ?Medication ?Instructions ?Recorded dronedarone 400 mg tablet (Multaq) 400 mg PO BID 90 days #180 tabs 02/27/24 rivaroxaban 20 mg tablet (Xarelto) 20 mg PO DAILY #30 tabs 02/27/24 Allergies Allergy/AdvReac Type Severity Reaction Status Date / Time No Known Allergies Allergy Verified 03/18/24 11:02 Review of Systems Constitutional: Constitutional: Denies body ache(s) and Denies chills Eyes: Eyes: Denies exophthalmos ENT: Denies vertigo and Denies dizziness Cardiovascular: Cardiovascular: Reports chest pain, Reports rapid heart rate, Reports palpitations and Denies dyspnea Respiratory: Respiratory: Denies cough and Denies dyspnea Gastrointestinal: Gastrointestinal: Denies abdominal pain, Denies nausea and Denies vomiting Musculoskeletal: Musculoskeletal: Denies back pain Neurologic: Denies vertigo and Denies dizziness Psychiatric: Psychiatric: Denies anxiety Endocrine: Endocrine: Reports palpitations PMFSH Past Medical History Medical History Cardiomyopathy Encounter for monitoring bridging anticoagulation therapy History of COVID-19 On anticoagulant therapy On beta salud at home BMI 36.0-36.9,adult Depressive disorder DJD (degenerative joint disease) Morbid obesity Elevated cholesterol HTN (hypertension) COVID-19 vaccine series completed Sleep apnea GERD (gastroesophageal reflux disease) Atrial fibrillation Surgical History Hx of laparoscopic partial gastrectomy Hx of knee surgery Hx of colonoscopy Hx of tonsillectomy S/P ablation of atrial fibrillation Social History Social History Household Members: Family Household Members Other:: Mother Are you a primary healthcare administrative assistant to a significant other at home: Yes (Helps take care of his mother) Do you presently have visiting nurse or other home services: No Unable to assess alcohol history related to: Unknown Alcohol intake: current Alcohol intake frequency: a few times a month Comment: rates pain 3-05/23 Patient Tobacco Use Status: Never used Tobacco Second Hand Smoke Exposure: No Physical Exam ED Vital Signs: Vital Signs - 24 hr 03/18/24 10:58 03/18/24 14:13 Temperature 98.1 F Pulse Rate 89 83 Respiratory Rate 16 18 Blood Pressure 120/88 129/83 Pulse Oximetry 98 98 Oxygen Delivery Method Room Air Room Air BMI result Body Mass Index 26.9 Const General: healthy appearing, comfortable, no acute distress, alert and awake Nutritional Appearance: well nourished Orientation/consciousness: patient oriented x3 HENMT Head: Yes normocephalic and Yes atraumatic Neck Neck: Yes full ROM Resp Effort & Inspection: normal respiratory effort, able to speak in complete sentences, no audible wheezes and not labored Auscultation: clear to auscultation bilaterally Cardio Rhythm: abnormal rhythm irregularly irregular GI Inspection: No distended Palpation (GI): Soft to palpation, not firm, nontender, no guarding and not rigid Skin General skin exam: elasticity normal Neuro General: patient oriented x3 Cranial nerves: Yes Bilaterally intact EOM present Cognition (Neuro): normal cognition Extrem Other: Moving all extremities well without any obvious deformities Medical Decision Making Medical Decision Making MDM Narrative: 83-year-old male past medical history as documented above presents for evaluation of palpitations with some chest pressure. It is possible this was an anxiety attack given the history that he was in a verbal altercation with the time. He also has a history of atrial fibrillation. He may have been in rapid ventricular response at the time. However currently he appears to be rate controlled. Plan for basic labs, EKG. He was due for cardioversion next 1 day and he would like me to reach out to Cardiology to see if they can expedite his appointment. I discussed with Cardiology pending workup Differential Diagnosis Differential Diagnoses: The differential diagnosis associated with the presentation includes Tachycardia Palpitations Rapid AFib Anxiety Lab Data 03/18/24 13:08 03/18/24 14:11 Labs: Lab Results 03/18/24 03/18/24 03/18/24 Range/Units 12:23 13:08 14:11 WBC 7.4 (4.8-10.8) X10*3/uL RBC 4.02 L (4.60-5.80) X10*6/uL Hgb 13.6 L (14.0-18.0) g/dl Hct 38.9 L (42.0-52.0) % MCV 96.8 (80.0-98.0) fL MCH 33.8 H (27.0-33.0) pg MCHC 35.0 (31.0-36.0) g/dl RDW 12.9 (11.0-16.0) % Plt Count 278 (160-400) X10*3/uL MPV 9.6 (9.4-12.4) fL Immature Gran % (Auto) 0.1 (0.0-0.4) % Neut % (Auto) 63.3 (45-73) % Lymph % (Auto) 27.6 (20-40) % [place] % (Auto) 7.5 (2-11) % Eos % (Auto) 1.0 (0-4) % Baso % (Auto) 0.5 (0-2) % Lymph # (Auto) 2.0 (1.2-4.9) X10*3/uL [place] # (Auto) 0.6 (0.1-1.2) X10*3/uL Eos # (Auto) 0.1 (0.0-0.4) X10*3/uL Baso # (Auto) 0.0 (0.0-0.2) X10*3/uL Abs Immat Gran (auto) 0.01 (0.00-0.03) X10*3/uL Absolute Neuts (auto) 4.7 (2.0-8.3) x10*3/uL Absolute Nucleated RBC 0.000 (0.0-0.012) X10*3/uL Nucleated RBC % (auto) 0.0 (0.0-0.2) /100WBC PT 28.2 H (10.9-12.4) SEC INR 2.4 H (0.9-1.1) Sodium 141 (135-145) mmol/L Potassium 4.3 (3.3-5.1) mmol/L Chloride 109 H (96-108) mmol/L Carbon Dioxide 24 (22-29) mmol/L Anion Gap 12 (12-20) BUN 19 H (9-16) mg/dL Creatinine 0.78 (0.5-1.4) mg/dL Estim Creat Clear Calc 127.3 Estimated GFR > 60 Random Glucose 89 (60-115) mg/dL Calcium 9.2 (8.4-10.2) mg/dL Magnesium 2.0 (1.6-2.6) mg/dL Total Bilirubin 0.7 (0.0-1.0) mg/dL AST 29 (5-37) U/L ALT 18 (0-40) U/L Alkaline Phosphatase 47 (39-117) U/L Troponin I High Sens < 2.7 3.5 (<3.5-35.0) ng/L Total Protein 7.1 (6.5-8.0) g/dL Albumin 4.4 (3.5-5.0) g/dL Lipase 26 (8-78) U/L Discharge Plan Discharge Clinical Impression: Palpitations, Chest pain Patient Disposition: Home, Self-Care Instructions: Heart Palpitations (ED) Additional Instructions: Your workup in the ER today was reassuring. This includes your EKGs, lab work. May have had an episode of rapid atrial fibrillation but seems to have resolved on its own Follow up with Cardiology as planned Return for new or worsening symptoms Prescriptions: No Action Xarelto 20 mg tablet 20 mg PO DAILY Qty: 30 3RF Rx Instructions: must administer with evening meal Multaq 400 mg tablet 400 mg PO BID 90 Days Qty: 180 3RF Print Language: Kiswahili
[2024-03-18 12:56] LABS: Troponin-I High Sensitivity < 2.7 ng/L (<3.5-35.0)
[2024-03-18 13:23] LABS: MANUAL DIFF FLAG NO
[2024-03-18 13:27] LABS: Basophils Percent Auto 0.5 % (0-2); Eosinophils Absolute Auto 0.1 X10*3/uL (0.0-0.4); Hematocrit 38.9 % (42.0-52.0); Hemoglobin 13.6 g/dl (14.0-18.0); Imm Gran Abs Auto 0.01 X10*3/uL (0.00-0.03); Imm Gran Pct Auto 0.1 % (0.0-0.4); Lymphocytes Percent Auto 27.6 % (20-40); Mean Corpuscular Hemoglobin 33.8 pg (27.0-33.0); Mean Corpuscular Volume 96.8 fL (80.0-98.0); Mean Platelet Volume 9.6 fL (9.4-12.4); Monocytes Absolute Auto 0.6 X10*3/uL (0.1-1.2); Monocytes Percent Auto 7.5 % (2-11); Neutrophils Absolute Auto 4.7 x10*3/uL (2.0-8.3); Neutrophils Percent Auto 63.3 % (45-73); Platelet Count 278 X10*3/uL (160-400); Red Blood Count 4.02 X10*6/uL (4.60-5.80); Red Cell Distribution Width 12.9 % (11.0-16.0); White Blood Count 7.4 X10*3/uL (4.8-10.8)
[2024-03-18 13:33] LABS: INTERNATIONAL NORM RATIO 2.4 (0.9-1.1); Prothrombin Time 28.2 SEC (10.9-12.4)
[2024-03-18 14:13] VITALS: BP 129/83; PULSE 83; RESP 18; O2SAT 98
[2024-03-18 14:39] LABS: Alanine Aminotransferase 18 U/L (0-40); Albumin Level 4.4 g/dL (3.5-5.0); Anion Gap 12 (12-20); Aspartate Amino Transferase 29 U/L (5-37); Bilirubin Total 0.7 mg/dL (0.0-1.0); Blood Urea Nitrogen 19 mg/dL (9-16); Calcium 9.2 mg/dL (8.4-10.2); Carbon Dioxide 24 mmol/L (22-29); Chloride 109 mmol/L (96-108); Creatinine Clr Calc Pharmacy 127.3; Estimated Glomerular Filt Rate > 60; Glucose Random 89 mg/dL (60-115); Lipase 26 U/L (8-78); Potassium 4.3 mmol/L (3.3-5.1); Sodium 141 mmol/L (135-145); Total Protein 7.1 g/dL (6.5-8.0)
--- NOTE | 2024-03-18 14:59 | ECG_ITS ---
Test Reason : chest pain Blood Pressure : */* mmHG Vent. Rate : 73 BPM Atrial Rate : * BPM P-R Int : * ms QRS Dur : 92 ms QT Int : 408 ms P-R-T Axes : * 8 16 degrees QTcB Int : 449 ms Atrial fibrillation Abnormal ECG When compared with ECG of 18-Mar-2024 11:49, No significant change was found Referred By: Jordin Berrios Electronically Signed By: Brian Rao
--- NOTE | 2024-03-18 14:59 | PC.NURSE ---
Pt reporting pain to chest, EKG ordered
[2024-03-18 15:06] LABS: Alkaline Phosphatase 47 U/L (39-117)
[2024-03-18 15:35] LABS: Troponin-I High Sensitivity 3.5 ng/L (<3.5-35.0)
[2024-03-18 16:06] VITALS: BP 110/67; PULSE 88; RESP 16; TEMP 37; O2SAT 98
== END 2024-03-18 16:08 | disposition home or self-care (01) ==
PROVIDERS: Physician Assistant; Emergency Provider Emergency Medicine; PCP Internal Medicine
DX: R00.2 Palpitations (principal); R07.89 Other chest pain; I49.9 Cardiac arrhythmia, unspecified; Z79.899 Other long term (current) drug therapy; Z79.01 Long term (current) use of anticoagulants
CPT/HCPCS: 36415; 80053; 83690; 83735; 84484; 85025; 85610; 93005; 99283; 99285

== ENCOUNTER → 2024-03-18 10:55 | Outpatient (BNV) | payer OTHER, SELFPAY | PROVIDERS: Emergency Provider Emergency Medicine; PCP Internal Medicine; Visit Provider Internal Medicine Cardiovascular Disease | DX: I48.91 Unspecified atrial fibrillation (principal) | CPT/HCPCS: 93010 ==

== ENCOUNTER 2024-03-27 11:14 | Day surgery (SDC) | payer OTHER, SELFPAY ==
--- NOTE | 2024-03-26 10:05 | HO.ANESPROP2 ---
Documented by User: Leonor Haro NP 03/26/24 10:08 HPI - Anesthesia Eval Consult details Narrative: 53yo M for Cardioversion Xarelto for afib Anesthesia Pre-Procedure Meds Is the patient on any of the following meds?: GLP1/DPP4 PMFSH Active Problems Active Problems: All Active Problems Cardiomyopathy (Acute) Rib pain on left side (Acute) Paroxysmal atrial fibrillation (Acute) Congenital intra-abdominal adhesions (Acute) Status post sleeve gastrectomy (Acute) Liver fibrosis (Acute) Sleep apnea with use of continuous positive airway pressure (CPAP) (Acute) Obesity (Acute) GERD (gastroesophageal reflux disease) (Acute) Past Medical History Medical History Cardiomyopathy Encounter for monitoring bridging anticoagulation therapy History of COVID-19 On anticoagulant therapy On beta salud at home BMI 36.0-36.9,adult Depressive disorder DJD (degenerative joint disease) Morbid obesity Elevated cholesterol HTN (hypertension) COVID-19 vaccine series completed Sleep apnea GERD (gastroesophageal reflux disease) Atrial fibrillation Family History Family history of problems with anesthesia: No Surgical History Surgical History Hx of laparoscopic partial gastrectomy Hx of knee surgery Hx of colonoscopy Hx of tonsillectomy S/P ablation of atrial fibrillation History of Problems with Anesthesia: No Social History Social History Household Members: Family Household Members Other:: Mother Are you a primary urgent care nurse practitioner to a significant other at home: Yes (Helps take care of his mother) Do you presently have visiting nurse or other home services: No Unable to assess alcohol history related to: Unknown Alcohol intake: current Alcohol intake frequency: a few times a month Comment: rates pain 3-4/10 Patient Tobacco Use Status: Never used Tobacco Second Hand Smoke Exposure: No Meds Allergies Allergy/AdvReac Type Severity Reaction Status Date / Time No Known Allergies Allergy Verified 03/18/24 11:02 Home Medications ?Medication ?Instructions ?Recorded ?Confirmed ?Last Taken ?Type dronedarone 400 mg tablet (Multaq) mg 03/26/24 Unknown History semaglutide (weight loss) 1.7 mg subcut 03/26/24 03/26/24 Unknown History mg/0.75 mL subcutaneous pen injector (Wegovy) Exam Pertinent Lab Results Pertinent Lab Results: Laboratory Tests 03/18/24 03/18/24 13:08 14:11 WBC 7.4 Hgb 13.6 L Hct 38.9 L Plt Count 278 Sodium 141 Potassium 4.3 Chloride 109 H Carbon Dioxide 24 BUN 19 H Creatinine 0.78 Narrative Narrative: EKG 03/2024 Vent. Rate : 73 BPM Atrial Rate : * BPM P-R Int : * ms QRS Dur : 92 ms QT Int : 408 ms P-R-T Axes : * 8 16 degrees QTcB Int : 449 ms Atrial fibrillation Abnormal ECG When compared with ECG of 18-Mar-2024 11:49, No significant change was found ECHO 2022 Conclusions: - The left ventricular systolic function is normal. The calculated ejection fraction is 61% by biplane method. Findings Left Ventricle Normal left ventricular cavity size. There is mildly increased left ventricular wall thickness. The left ventricular systolic function is normal. The calculated ejection fraction is 61% by biplane method. There is no evidence of regional wall motion abnormalities. Assessment and Plan Assessment Anesthesia Assessment: Chart Reviewed Final Anesthetic Review Family History of Problems with Anesthesia: No History of Problems with Anesthesia: No Documented by User: Kylah Sylvester MD 03/27/24 10:43 [facility] Past Medical History Medical History Cardiomyopathy Encounter for monitoring bridging anticoagulation therapy History of COVID-19 On anticoagulant therapy On beta salud at home BMI 36.0-36.9,adult Depressive disorder DJD (degenerative joint disease) Morbid obesity Elevated cholesterol HTN (hypertension) COVID-19 vaccine series completed Sleep apnea GERD (gastroesophageal reflux disease) Atrial fibrillation Surgical History Surgical History Hx of laparoscopic partial gastrectomy Hx of knee surgery Hx of colonoscopy Hx of tonsillectomy S/P ablation of atrial fibrillation Social History Social History Household Members: Family Household Members Other:: Mother Are you a primary urgent care nurse practitioner to a significant other at home: Yes (Helps take care of his mother) Do you presently have visiting nurse or other home services: No Unable to assess alcohol history related to: Unknown Alcohol intake: current Alcohol intake frequency: a few times a month Comment: rates pain -05/23 Patient Tobacco Use Status: Never used Tobacco Second Hand Smoke Exposure: No Meds Allergies Allergy/AdvReac Type Severity Reaction Status Date / Time No Known Allergies Allergy Verified 03/18/24 11:02 Home Medications ?Medication ?Instructions ?Recorded ?Confirmed ?Last Taken ?Type dronedarone 400 mg tablet (Multaq) mg 03/26/24 Unknown History semaglutide (weight loss) 1.7 mg subcut 03/26/24 03/26/24 Unknown History mg/0.75 mL subcutaneous pen injector (Wegovy) Exam Airway Mallampati Class: II TM Dist: >3cm Neck ROM: Full Heart: af Lungs: cta Assessment and Plan Assessment Anesthesia Assessment: Anesthesia Plan Discussed Final Anesthetic Review NPO: Yes ASA Class: III Final Preanesthetic Review: No Changes in Pt Med Stat, Meds/Allgs Chart Reviewed, Consent Obtained/Reviewed and Anes Risks/Benef Reviewed Patient Risk: Intermediate Procedure Risk: Low Anesthetic Plan Anesthetic Plan: MAC: Disposition: Standard PACU
[2024-03-27 11:30] VITALS: BP 117/88; PULSE 81; RESP 16; TEMP 36.8; O2SAT 99
[2024-03-27 11:32] VITALS: BMI 30.8
[2024-03-27] MEDS: Lactated Ringers 1,000 ML 50 ML IVCONT (11:39)
--- NOTE | 2024-03-27 11:42 | MHC.SHP ---
Pre-Procedural Eval Section A - 24 Hr Update-Section A only Date of Service: 03/27/24 Section B - Complete if H&P > 30 days Chief Complaint: Paroxysmal atrial fibrillation Details of Present Illness: Patient came in for a EKG because of recurrent symptoms suggestive of atrial fibrillation. This confirmed atrial fibrillation, EKGs was done on 02/27/2024. He was then started on Xarelto therapy. He was then advised repeat cardioversion in 4 weeks time after anticoagulation was maintain after starting dronedarone Relevant Family History (Specify if Yes): No Relevant Social History: None Present Medications: see Short Stay Collaborative assessment Medical History: Significant History History of Previous Operations: No relevant previous surgery Allergies: Allergies Allergy/AdvReac Type Severity Reaction Status Date / Time No Known Allergies Allergy Verified 03/18/24 11:02 Review of Systems Sugical H&P ROS: Negative: Constitution, Respiratory, Neurological, Psychiatric, Hem-Onc, Allergic/Immunologic, Gastrointestinal, Genitourinary, Musculoskeletal, Integumentary, Endocrine and Eyes/Ears/Nose/Throat and Yes, Specify: Cardiovascular (Palpitation chest pain) Exam Surgical H&P Exam: Normal: HEENT, Normal: Lungs, Normal: Extremities, Normal: Abdomen, Normal: Skin and Normal: Neurological and Significant Findings: Heart (Irregularly irregular rhythm) Plan Diagnosis/Plan: Unchanged I have reviewed the history and physical and performed a pertinent physical examination on my patient. No changes have occurred unless specified. Due to symptomatic recurrent persistent atrial fibrillation, patient will pursue synchronized cardioversion on antiarrhythmic drug therapy Time Spent With Patient Time: Total time managing care of this patient today ____ minutes.
--- NOTE | 2024-03-27 12:59 | HO.ANESPROP2 ---
HPI - Anesthesia Eval Consult details Narrative: 53 yo M presenting for cardioversion [facility] Active Problems Active Problems: All Active Problems Cardiomyopathy (Acute) Rib pain on left side (Acute) Paroxysmal atrial fibrillation (Acute) Congenital intra-abdominal adhesions (Acute) Status post sleeve gastrectomy (Acute) Liver fibrosis (Acute) Sleep apnea with use of continuous positive airway pressure (CPAP) (Acute) Obesity (Acute) GERD (gastroesophageal reflux disease) (Acute) Past Medical History Medical History Cardiomyopathy Encounter for monitoring bridging anticoagulation therapy History of COVID-19 On anticoagulant therapy On beta salud at home BMI 36.0-36.9,adult Depressive disorder DJD (degenerative joint disease) Morbid obesity Elevated cholesterol HTN (hypertension) COVID-19 vaccine series completed Sleep apnea GERD (gastroesophageal reflux disease) Atrial fibrillation Family History Family history of problems with anesthesia: No Surgical History Surgical History Hx of laparoscopic partial gastrectomy Hx of knee surgery Hx of colonoscopy Hx of tonsillectomy S/P ablation of atrial fibrillation History of Problems with Anesthesia: No Social History Social History Household Members: Family Household Members Other:: Mother Are you a primary career information specialist to a significant other at home: Yes (Helps take care of his mother) Do you presently have visiting nurse or other home services: No Unable to assess alcohol history related to: Unknown Alcohol intake: current Alcohol intake frequency: a few times a month Comment: rates pain 3-4/10 Patient Tobacco Use Status: Never used Tobacco Second Hand Smoke Exposure: No Use of substances other than those prescribed or required for medical reasons: No Have you been hit, kicked, punched, or otherwise hurt by someone within the past year? If so, by whom?: No Are you DNR?: No Advance Directives: No Advance Directives Information Provided: Yes Recently lost weight without trying: No Meds Allergies Allergy/AdvReac Type Severity Reaction Status Date / Time No Known Allergies Allergy Verified 03/18/24 11:02 Active Medications: Current Medications Lactated Ringer's (Lr) 1,000 mls @ 50 mls/hr IVCONT .Q20H ROMAINE Last Admin: 03/27/24 11:39 Dose: 50 mls/hr Naloxone HCl (Naloxone Hcl 0.4 Mg/Ml Vial) 0.04 mg IVPUSH Q5M PRN PRN Reason: Excessive sedation or RR < 8 Naloxone HCl (Naloxone Hcl 0.4 Mg/Ml Vial) 0.04 mg IVPUSH Q5M PRN PRN Reason: Excessive sedation or RR < 8 Ondansetron HCl (Ondansetron Hcl 4 Mg/2 Ml Vial) 4 mg IVPUSH ONCE PRN PRN Reason: Nausea and Vomiting Stop: 03/27/24 18:58 Home Medications ?Medication ?Instructions ?Recorded ?Confirmed ?Last Taken ?Type dronedarone 400 mg tablet (Multaq) mg 03/26/24 03/27/24 History semaglutide (weight loss) 1.7 mg subcut 03/26/24 03/26/24 Unknown History mg/0.75 mL subcutaneous pen injector (Wegovy) Exam Exam Date and Time: 03/27/24 1300 Height,Weight and Vital Signs: Height 6 ft 2 in Weight 108.862 kg Last Vital Signs Temp 98.3 F 03/27/24 11:30 Pulse 81 03/27/24 11:30 Resp 16 03/27/24 11:30 BP 117/88 03/27/24 11:30 Pulse Ox 99 03/27/24 11:30 O2 Del Method Room Air 03/27/24 11:30 Airway Mallampati Class: II TM Dist: >3cm Neck ROM: Full Loose/Missing/Broken Teeth: No (patient denies any loose or broken teeth) Heart: S1S2 Lungs: CTAB Assessment and Plan Assessment Anesthesia Assessment: Anesthesia Plan Discussed and Chart Reviewed Final Anesthetic Review Family History of Problems with Anesthesia: No History of Problems with Anesthesia: No NPO: Yes ASA Class: III Final Preanesthetic Review: No Changes in Pt Med Stat, Meds/Allgs Chart Reviewed, Consent Obtained/Reviewed and Anes Risks/Benef Reviewed Patient Risk: Low Procedure Risk: Intermediate Anesthetic Plan Anesthetic Plan: MAC: and Agree w/ Assess. and Plan Disposition: Standard PACU
--- OUTSIDE RECORDS SUMMARY | 2024-03-27 13:10 | XMS_ITS ---
Author Organization [facility] Address [address] [place] [address] Care Team Providers Care Education Director Name Role Phone Kuldip Stephens Primary Care Provider OLMAN Beal Unavailable [phone] MEDICATIONS Medication SIG (Take, Route, Fr equency, Duration) Notes Start Date End Date Status Wegovy 1.7 MG/0.75ML INJECT 1.7MG SUBCUT ANEOUSLY EVERY WEEK for 28 Active Encounters Encounter Location Date Provider Diagnosis [address] [facility] [address] [place] [address] 02/29/2024 OLMAN HOLLOWAY PLAN OF TREATMENT Medication Medication Name Sig Start Date Stop Date Notes Wegovy 1.7 MG/0.75ML INJECT 1.7MG SUBCUT ANEOUSLY EVERY WEEK for 28 Next Appt Details Provider Name:ASPEN ALEJANDRE , 04/08/2024 11:30:00 AM, [address] [facility], [address], [place], [address], Progress Notes * Omar ALMANZADOB:1970 (53 yo M)Acc No.[id number]:02/29/2024 Patient:??ALMANZAKeith PEGUEROothy :1970?Age:53 Y?Sex:Michele aragon Address:[address] [place] [id number] * Refills?? Refill Wegovy Solution Auto-injector, 1.7 MG/0.75ML, 3 Milliliter, INJECT 1.7MG SUBCUTANEOUSLY EVERY WEEK, 28, Refills=3 * true * Date:??
--- OUTSIDE RECORDS SUMMARY | 2024-03-27 13:10 | XMS_ITS ---
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 Name Role Phone Kuldip Stephens Primary Care Provider OLMAN Beal Unavailable [phone] ALLERGIES No Known Allergies REASON FOR VISIT PT HERE FOR SPACE BUYER APPT PT WENT BACK INTO AFIB 2 WKS AGO PT DOES HAVE CARDIO APPT TOMORROW MEDICATIONS Medication SIG (Take, Route, Frequency, Duration) Notes Start Date End Date Status Multaq 400 MG 1 tablet with meals Orally Twice a day Active Zepbound 2.5 MG/0.5ML 2.5 mg weekly Subc utaneous Weekly for 30 days 03/26/2024 Active Wegovy 0.5 MG/0.5ML 0.5mg Subcutaneous w eekly for 30 days 10/01/2023 Not-Taking Ondansetron HCl 8 MG 1 tablet as needed Orally Once a day for 30 days 01/03/2024 Active Wegovy 1.7 MG/0.75ML INJECT 1.7MG SUBCUTANEOUSLY EVERY WEEK for 28 Active Wegovy 1 MG/0.5ML 1mg Subcutaneous wee kly for 30 days Active Wegovy 1 MG/0.5ML 1mg Subcutaneous wee kly for 30 days 10/02/2023 Not-Taking Xarelto 20 MG Oral for 30 Days Active VITAL SIGNS Heart Rate 92 /min 03/26/2024 Blood pressure systolic 122 mm Hg 03/26/19 25 Blood pressure diastolic 76 mm Hg 025 Weight 247 lbs 03/26/2024 BMI 33.5 kg/m2 03/26/2024 Height 72 in 03/26/2024 Oximetry 99 % 03/26/2024 Encounters Encounter Location Date Provider Diagnosis [facility] [address] [facility] [address] [place] [address] 03/26/2024 OLMAN HOLLOWAY BMI 33.0-33.9,adult Z68.33 ; Dietary counseling and surveillance Z71.3 ; Other obesity due to excess calories E66.09 ; PAF (paroxysmal atrial fibrillation) I48.0 ; Essential (primary) hypertension I10 ; H/O gastric sleeve Z90.3 and ROLO on CPAP G47.33 ASSESSMENTS Encounter Date Diagnosis Assessment Notes Treatment Notes Treatment Clinical Notes Section Notes 03/26/2024 BMI 33.0-33.9,adult (ICD-10 - Z68.33) Acute Concerns/Problem List: 03/26/2024 Plan for synchronized cardioversion tomorrow with [facility] mold stacker Dr. Linares On Xarelto anticoagulation and Multaq for rate control We discussed transitioning from Wegovy to Zepbound We discussed the new surmount ROLO trial and indication for tirzepatide _update comprehensive labs Of note, some information is being carried forward from prior records for informational purposes only and is being cited so that efficiency, safety and quality of the patient's care is not compromised This note was prepared using voice recognition software and direct typing Please excuse inadvertent pre press operator or typing errors, or uncorrected word substitutions Although every attempt has been made by the provider to proofread this document, occasional misspellings and typographical errors may still be present Due to the previous pandemic, and the use of personal protective equipment (PPE) This may decrease voice recognition accuracy Inadvertent pre press operator errors may occur 03/26/2024 Dietary counseling and surveillance (ICD-10 - Z71.3) Acute Concerns/Problem List: 03/26/2024 Plan for synchronized cardioversion tomorrow with [facility] mold stacker Dr. Linares On Xarelto anticoagulation and Multaq for rate control We discussed transitioning from Wegovy to Zepbound We discussed the new surmount ROLO trial and indication for tirzepatide _update comprehensive labs Of note, some information is being carried forward from prior records for informational purposes only and is being cited so that efficiency, safety and quality of the patient's care is not compromised This note was prepared using voice recognition software and direct typing Please excuse inadvertent pre press operator or typing errors, or uncorrected word substitutions Although every attempt has been made by the provider to proofread this document, occasional misspellings and typographical errors may still be present Due to the previous pandemic, and the use of personal protective equipment (PPE) This may decrease voice recognition accuracy Inadvertent pre press operator errors may occur 03/26/2024 Other obesity due to excess calories (ICD-10 - E66.09) Acute Concerns/Problem List: 03/26/2024 Plan for synchronized cardioversion tomorrow with [facility] mold stacker Dr. Linares On Xarelto anticoagulation and Multaq for rate control We discussed transitioning from Wegovy to Zepbound We discussed the new surmount ROLO trial and indication for tirzepatide _update comprehensive labs Of note, some information is being carried forward from prior records for informational purposes only and is being cited so that efficiency, safety and quality of the patient's care is not compromised This note was prepared using voice recognition software and direct typing Please excuse inadvertent pre press operator or typing errors, or uncorrected word substitutions Although every attempt has been made by the provider to proofread this document, occasional misspellings and typographical errors may still be present Due to the previous pandemic, and the use of personal protective equipment (PPE) This may decrease voice recognition accuracy Inadvertent pre press operator errors may occur 03/26/2024 PAF (paroxysmal atrial fibrillation) (ICD-10 - I48.0) Acute Concerns/Problem List: 03/26/2024 Plan for synchronized cardioversion tomorrow with [facility] mold stacker Dr. Linares On Xarelto anticoagulation and Multaq for rate control We discussed transitioning from Wegovy to Zepbound We discussed the new surmount ROLO trial and indication for tirzepatide _update comprehensive labs Of note, some information is being carried forward from prior records for informational purposes only and is being cited so that efficiency, safety and quality of the patient's care is not compromised This note was prepared using voice recognition software and direct typing Please excuse inadvertent pre press operator or typing errors, or uncorrected word substitutions Although every attempt has been made by the provider to proofread this document, occasional misspellings and typographical errors may still be present Due to the previous pandemic, and the use of personal protective equipment (PPE) This may decrease voice recognition accuracy Inadvertent pre press operator errors may occur 03/26/2024 Essential (primary) hypertension (ICD-10 - I10) Acute Concerns/Problem List: 03/26/2024 Plan for synchronized cardioversion tomorrow with [facility] mold stacker Dr. Linares On Xarelto anticoagulation and Multaq for rate control We discussed transitioning from Wegovy to Zepbound We discussed the new surmount ROLO trial and indication for tirzepatide _update comprehensive labs Of note, some information is being carried forward from prior records for informational purposes only and is being cited so that efficiency, safety and quality of the patient's care is not compromised This note was prepared using voice recognition software and direct typing Please excuse inadvertent pre press operator or typing errors, or uncorrected word substitutions Although every attempt has been made by the provider to proofread this document, occasional misspellings and typographical errors may still be present Due to the previous pandemic, and the use of personal protective equipment (PPE) This may decrease voice recognition accuracy Inadvertent pre press operator errors may occur 03/26/2024 H/O gastric sleeve (ICD-10 - Z90.3) Acute Concerns/Problem List: 03/26/2024 Plan for synchronized cardioversion tomorrow with [facility] mold stacker Dr. Linares On Xarelto anticoagulation and Multaq for rate control We discussed transitioning from Wegovy to Zepbound We discussed the new surmount ROLO trial and indication for tirzepatide _update comprehensive labs Of note, some information is being carried forward from prior records for informational purposes only and is being cited so that efficiency, safety and quality of the patient's care is not compromised This note was prepared using voice recognition software and direct typing Please excuse inadvertent pre press operator or typing errors, or uncorrected word substitutions Although every attempt has been made by the provider to proofread this document, occasional misspellings and typographical errors may still be present Due to the previous pandemic, and the use of personal protective equipment (PPE) This may decrease voice recognition accuracy Inadvertent pre press operator errors may occur 03/26/2024 ROLO on CPAP (ICD-10 - G47.33) Acute Concerns/Problem List: 03/26/2024 Plan for synchronized cardioversion tomorrow with [facility] mold stacker Dr. Linares On Xarelto anticoagulation and Multaq for rate control We discussed transitioning from Wegovy to Zepbound We discussed the new surmount ROLO trial and indication for tirzepatide _update comprehensive labs Of note, some information is being carried forward from prior records for informational purposes only and is being cited so that efficiency, safety and quality of the patient's care is not compromised This note was prepared using voice recognition software and direct typing Please excuse inadvertent pre press operator or typing errors, or uncorrected word substitutions Although every attempt has been made by the provider to proofread this document, occasional misspellings and typographical errors may still be present Due to the previous pandemic, and the use of personal protective equipment (PPE) This may decrease voice recognition accuracy Inadvertent pre press operator errors may occur PLAN OF TREATMENT Medication Medication Name Sig Start Date Stop Date Notes Zepbound 2.5 MG/0.5ML 2.5 mg weekly Subc utaneous Weekly for 30 days 03/26/2024 Wegovy 1 MG/0.5ML 1mg Subcutaneous weekly for 30 days Pending Test Test Name Order Date LIPID PANEL, STANDARD 03/26/2024 COMPREHENSIVE METABOLIC PANEL 03/26/2024 CBC (INCLUDES DIFF/PLT) 03/26/2024 URINALYSIS, COMPLETE 03/26/2024 HEMOGLOBIN A1c 03/26/2024 PSA (FREE AND TOTAL) 03/26/2024 TSH 03/26/2024 VITAMIN D,25-OH,TOTAL,IA 03/26/2024 Next Appt Details Provider Name:ASPEN ALEJANDRE , 04/08/2024 11:30:00 AM, [address] [place] [address], [phone], Progress Notes * Omar ALMANZADOB:1970 (53 yo M)Acc No.[id number]:03/26/2024 Progress Notes Patient:??Omar ALMANZA Provider:??OLMAN HOLLOWAY NP :1970?Age:53 Y?Sex:Michele aragon Date:03/26/2024 Address:[address] [place], [place] [id number] Pcp:Kuldip Stephens Subjective: * Chief Complaints: * ?1. PT HERE FOR SPACE BUYER APPT PT WENT BACK INTO [facility] 2 WKS AGO PT DOES HAVE CARDIO APPT TOMORROW. * HPI: ?Constitutional:? Patient is here today for a new patient visit and to establish PCP services ?Patient seen and examined. ? Full past medical history, social history, family history, ?allergies and current medications were reviewed and updated. ?Acute Concerns/Problem List: ?03/26/2024 ?Patient is a dual weight management and primary care patient of our practice ?PMH: Osteoarthritis in knees and hips. Sees [facility] ?Patient recently went into a rapid A-fib ?Seen at the [facility] emergency department ?Scheduled to have synchronized cardioversion tomorrow ? on Xarelto 20 mg daily as well as Multaq ?Will request notes ?Hx of Afib, cardioversion x 4 before gastric bypass. ?ROLO screening/STOP-BANG/[place], Has Dx of ROLO. Has a CPAP machine at home. ?We discussed the new surmount ROLO trial and indication for tirzepatide ?Sees cardiology 4x/year - Dr. Linares through [facility]. ?Currently on Wegovy 0.5 ?Discussed possibly going from now or up to the 1 mg dose ?Utilizing [facility] specialty pharmacy ?Happy with progress thus far, tolerating medications well ?Hx of gastric bypass surgery in 01/2022 - [facility]. ?Exercise: Currently steps daily. Avg steps: 7,000-8,000 usually. ?No gym. Does a lot of yard work, always doing something. Active lifestyle. ?No weight bearing exercise ?Non-smoker. Smokes occasional cigars. ?ETOH use: 5-8 whiskey or bourbon 4-5 days a week. ?No recreational drugs. 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 ?03/25/2024, Weight 247lbs , BMI 33 (+7lbs) ?02/11/2025, Weight 240lbs , BMI 32 ?01/02/2025, Weight 241lbs , BMI 32 ?11/07/2023, Weight 244lbs , BMI 33 (-7lbs) ?08/30/2023: Weight 251 lbs, BMI: 34 ?Highest weight: 325 lbs ?Lowest weight: 235 lbs ?Goal weight: 220s lbs ?Comprehensive labs, needs updating* ?Health maintenance ?Colorectal screening @ age 50, 10 yr surveilance, [facility] ?COVID mRNA 2 ?Flu 2023, defers ?Shingrix, no previous. * ROS:?All Other Systems:?Review of Systems (ROS)??All others negative except those mentioned in HPI.? * Medical History:??High blood pressure, Afib, Sleep [...] meals Orally Twice a day , Taking Ondansetron HCl 8 MG Tablet 1 tablet as needed Orally Once a day for nausea/vomiting, Taking Wegovy 1.7 MG/0.75ML Solution Auto-injector INJECT 1.7MG SUBCUTANEOUSLY EVERY WEEK , Taking Xarelto 20 MG Tablet Oral , Not-Taking Wegovy 0.5 MG/0.5ML Solution Auto-injector 0.5mg Subcutaneous weekly , Not-Taking Wegovy 1 MG/0.5ML Solution Auto-injector 1mg Subcutaneous weekly , Medication List reviewed and reconciled with the patient * Allergies:??N.K.D.A. Objective: * Vitals:??HR:92/min, BP:122/7 6mm Hg, Wt:247lbs, BMI:33.5Index, Ht: 72 in, Oxygen sat %:99%. * Examination: ?General Examination: ?GENERAL APPEARANCE:??in no acute distress, well developed, well nourished.??HEAD:??normocephalic, atraumatic.??EYES:??pupils equal, round, reactive to light and accommodation.??EARS:??normal.??ORAL CAVITY:??mucosa moist.??THROAT:??clear.??NECK/THYROID:??neck supple, full range of motion, no cervical lymphadenopathy.??SKIN:??no suspicious lesions, warm and dry.??HEART:??no murmurs, regular rate and rhythm, S1, S2 normal.??LUNGS:??clear to auscultation bilaterally.??ABDOMEN:??normal, bowel sounds present, soft, nontender, nondistended.??EXTREMITIES:??no clubbing, cyanosis, or edema.??NEUROLOGIC:??nonfocal, motor strength normal upper and lower extremities, sensory exam intact.? Assessment: * Assessment: 1.??Other obesity due to exc ess calories - E66.09 (Primary)??2.??BMI 33.0- 33.9,adult - Z68.33??3.??Dietary counseling and surveillance - Z71.3??4.??PAF (paroxysmal atrial fibrillation) - I48.0??5.??Essential (primary) hypertension - I10??6.??H/O gastric sleeve - Z90.3??7.??ROLO on CPAP - G47.33?? Acute Concerns/Problem List: 03/26/2024 Plan for synchronized cardioversion tomorrow with [facility] mold stacker Dr. Linares On Xarelto anticoagulation and Multaq for rate control We discussed transitioning from Wegovy to Zepbound We discussed the new surmount ROLO trial and indication for tirzepatide _update comprehensive labs Of note, some information is being carried forward from prior records for informational purposes only and is being cited so that efficiency, safety and quality of the patient's care is not compromised This note was prepared using voice recognition software and direct typing Please excuse inadvertent pre press operator or typing errors, or uncorrected word substitutions Although every attempt has been made by the provider to proofread this document, occasional misspellings and typographical errors may still be present Due to the previous pandemic, and the use of personal protective equipment (PPE) This may decrease voice recognition accuracy Inadvertent pre press operator errors may occur. Plan: * Treatment: * Labs:?? * ?Lab: HEMOGLOBIN A1 c ?Lab: PSA (FREE AND TOTAL) ?Lab: VITAMIN D,25- [place],TOTAL,IA ?Lab: URINALYSIS, C OMPLETE ?Lab: COMPREHENSIVE METABOLIC PANEL ?Lab: CBC (INCLUDES DIFF/PLT) ?Lab: TSH ?Lab: LIPID PANEL, STANDARD * Images: Billing Information: * Visit Code:?? 12031 Office Visit, Est Pt., Level 4. Modifiers: SA * Procedure Codes:?? * Sign off status: Completed true * Provider:??OLMAN HOLLOWAY NP Date:??03/16 History and Physical Notes * HPI (History of Present Illness) Category Sub-Category Detail Notes Category Not es Constitutional Patient is here today for a new patient visit and to establish PCP services Patient seen and examined. Full past medical history, social history, family history, allergies and current medications were reviewed and updated. Acute Concerns/Problem List: 03/26/2024 Patient is a dual weight management and primary care patient of our practice PMH: Osteoarthritis in knees and hips. Sees [facility] Patient recently went into a rapid A-fib Seen at the [facility] emergency department Scheduled to have synchronized cardioversion tomorrow on Xarelto 20 mg daily as well as Multaq Will request notes Hx of Afib, cardioversion x 4 before gastric bypass. ROLO screening/STOP-BANG/[place], Has Dx of ROLO. Has a CPAP machine at home. We discussed the new surmount ROLO trial and indication for tirzepatide Sees cardiology 4x/year - Dr. Linares through [facility]. Currently on Wegovy 0.5 Discussed possibly going from now or up to the 1 mg dose Utilizing [facility] specialty pharmacy Happy with progress thus far, tolerating medications well Hx of gastric bypass surgery in 01/2022 - [facility]. Exercise: Currently steps daily. Avg steps: 7,000-8,000 usually. No gym. Does a lot of yard work, always doing something. Active lifestyle. No weight bearing exercise Non-smoker. Smokes occasional cigars. ETOH use: 5-8 whiskey or bourbon 4-5 days a week. No recreational drugs. 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 03/25/2024, Weight 247lbs , BMI 33 (+7lbs) 02/11/2025, Weight 240lbs , BMI 32 01/02/2025, Weight 241lbs , BMI 32 11/07/2023, Weight 244lbs , BMI 33 (-7lbs) 08/30/2023: Weight 251 lbs, BMI: 34 Highest weight: 325 lbs Lowest weight: 235 lbs Goal weight: 220s lbs Comprehensive labs, needs updating* Health maintenance Colorectal screening @ age 50, 10 yr surveilance, [facility] COVID mRNA 2 2023, defers Sh[facility], no previous Examination Category Sub-Category Detail Notes Category Not es General Examination GENERAL APPEARANCE: in no ac [place] distress, well developed, well nourished HEAD: normocephalic, atrau matic EYES: pupils equal, round, reactive to light and accommodation EARS: normal THROAT: clear NECK/THYROID: neck supple, full ra nge of motion, no cervical lymphadenopathy HEART: no murmurs, regular rate and rhythm, S1, S2 normal LUNGS: clear to auscultatio n bilaterally ABDOMEN: normal, bowel sounds present, soft, nontender, nondistended NEUROLOGIC: nonfocal, motor stre ngth normal upper and lower extremities, sensory exam intact SKIN: no suspicious lesion s, warm and dry EXTREMITIES: no clubbing, cyanosi s, or edema ORAL CAVITY: mucosa moist
--- OUTSIDE RECORDS SUMMARY | 2024-03-27 13:10 | XMS_ITS ---
Author Organization [facility] Address [address] [place] [address] Care Team Providers Care Shrub Grower Name Role Phone Kuldip Stephens Primary Care Provider OLMAN Beal Unavailable [phone] ASPEN ALEJANDRE Unavailable [phone] ALLERGIES No Known Allergies REASON FOR VISIT PT HERE FOR WT MGT SECA DONE MEDICATIONS Medication SIG (Take, Route, Frequency, Duration) Notes Start Date End Date Status Ondansetron HCl 8 MG 1 tablet as needed Orally Once a day for 30 days 01/03/2024 Active Wegovy 1 MG/0.5ML 1mg Subcutaneous wee kly for 30 days 10/02/2023 Not-Taking Wegovy 0.5 MG/0.5ML 0.5mg Subcutaneous w eekly for 30 days 10/01/2023 Not-Taking Wegovy 1 MG/0.5ML Inject 1 mg Subcutan eous Once weekly for 28 days 11/09/2023 Active Multaq 400 MG 1 tablet with meals Orally Twice a day Active VITAL SIGNS Heart Rate 69 /min 02/12/2024 Blood pressure systolic 126 mm Hg 02/12/20 24 Blood pressure diastolic 86 mm Hg 024 Weight 240 lbs 02/12/2024 BMI 32.55 kg/m2 02/12/2024 Height 72 in 02/12/2024 Oximetry 98 % 02/12/2024 Encounters Encounter Location Date Provider Diagnosis [facility] [address] [address] 02/12/2024 ASPEN ALEJANDRE BMI 32.0-32.9,adult Z68.32 ; Adult-onset obesity E66.9 ; H/O gastric sleeve Z90.3 ; PAF (paroxysmal atrial fibrillation) I48.0 and Essential (primary) hypertension I10 ASSESSMENTS Encounter Date Diagnosis Assessment Notes Treatment Notes Treatment Clinical Notes Section Notes 02/12/2024 BMI 32.0-32.9,adult (ICD-10 - Z68.32) Patient is [...] been able to access 1.7 mg which he is using however has been dividing the [...] All patient questions answered at this time. 02/12/2024: Weight 240 pounds, BMI 32.55. Seca scan completed today to interpret the patient. Overall down 1 pound, however has had approximately 3 pound increase of fat mass. Small decrease in muscle mass. Discussed importance of increasing physical activity to decrease fat mass and maintaining and build muscle mass. Patient has been using half a dose of Wegovy 1.7 mg prescribed to pharmacy. Empasized importance of step yao increase of medication at appropriate concentration. Plan at this time to increase Wegovy to 1 mg once weekly subcu injection. Discussed proper use of medication and expected side effect profile. He will follow-up in the office in approximately 4 weeks. # Atrial fibrillation: Patient is asymptomatic in office today without chest pain, shortness of breath, dyspnea on exertion, or diaphoresis. Continue Multaq 400 mg twice daily with meals. Cardiopulmonary exam unremarkable today in office. Will continue to monitor. Please follow-up with PCP. # Hypertension: Blood pressure stable in office today 126/86. Discussed red flag signs of hypertension including [...] Dictation was accomplished with the use of [employer] voice recognition software, which is prone to medical misidentifications and grammatical errors. This are unintentional and the practitioner does try to identify and correct these, but some could still be present. Please do not hesitate to contact practitioner for clarification. 02/12/2024 Adult-onset obesity (ICD-10 - E66.9) Patient is [...] been able to access 1.7 mg which he is using however has been dividing the [...] All patient questions answered at this time. 02/12/2024: Weight 240 pounds, BMI 32.55. Seca scan completed today to interpret the patient. Overall down 1 pound, however has had approximately 3 pound increase of fat mass. Small decrease in muscle mass. Discussed importance of increasing physical activity to decrease fat mass and maintaining and build muscle mass. Patient has been using half a dose of Wegovy 1.7 mg prescribed to pharmacy. Empasized importance of step yao increase of medication at appropriate concentration. Plan at this time to increase Wegovy to 1 mg once weekly subcu injection. Discussed proper use of medication and expected side effect profile. He will follow-up in the office in approximately 4 weeks. # Atrial fibrillation: Patient is asymptomatic in office today without chest pain, shortness of breath, dyspnea on exertion, or diaphoresis. Continue Multaq 400 mg twice daily with meals. Cardiopulmonary exam unremarkable today in office. Will continue to monitor. Please follow-up with PCP. # Hypertension: Blood pressure stable in office today 126/86. Discussed red flag signs of hypertension including [...] Dictation was accomplished with the use of [employer] voice recognition software, which is prone to medical misidentifications and grammatical errors. This are unintentional and the practitioner does try to identify and correct these, but some could still be present. Please do not hesitate to contact practitioner for clarification. 02/12/2024 H/O gastric sleeve (ICD-10 - Z90.3) Patient [...] been able to access 1.7 mg which he is using however has been dividing the [...] All patient questions answered at this time. 02/12/2024: Weight 240 pounds, BMI 32.55. Seca scan completed today to interpret the patient. Overall down 1 pound, however has had approximately 3 pound increase of fat mass. Small decrease in muscle mass. Discussed importance of increasing physical activity to decrease fat mass and maintaining and build muscle mass. Patient has been using half a dose of Wegovy 1.7 mg prescribed to pharmacy. Empasized importance of step yao increase of medication at appropriate concentration. Plan at this time to increase Wegovy to 1 mg once weekly subcu injection. Discussed proper use of medication and expected side effect profile. He will follow-up in the office in approximately 4 weeks. # Atrial fibrillation: Patient is asymptomatic in office today without chest pain, shortness of breath, dyspnea on exertion, or diaphoresis. Continue Multaq 400 mg twice daily with meals. Cardiopulmonary exam unremarkable today in office. Will continue to monitor. Please follow-up with PCP. # Hypertension: Blood pressure stable in office today 126/86. Discussed red flag signs of hypertension including [...] Dictation was accomplished with the use of [employer] voice recognition software, which is prone to medical misidentifications and grammatical errors. This are unintentional and the practitioner does try to identify and correct these, but some could still be present. Please do not hesitate to contact practitioner for clarification. 02/12/2024 PAF (paroxysmal atrial fibrillation) (ICD-10 - I48.0) [...] been able to access 1.7 mg which he is using however has been dividing the [...] All patient questions answered at this time. 02/12/2024: Weight 240 pounds, BMI 32.55. Seca scan completed today to interpret the patient. Overall down 1 pound, however has had approximately 3 pound increase of fat mass. Small decrease in muscle mass. Discussed importance of increasing physical activity to decrease fat mass and maintaining and build muscle mass. Patient has been using half a dose of Wegovy 1.7 mg prescribed to pharmacy. Empasized importance of step yao increase of medication at appropriate concentration. Plan at this time to increase Wegovy to 1 mg once weekly subcu injection. Discussed proper use of medication and expected side effect profile. He will follow-up in the office in approximately 4 weeks. # Atrial fibrillation: Patient is asymptomatic in office today without chest pain, shortness of breath, dyspnea on exertion, or diaphoresis. Continue Multaq 400 mg twice daily with meals. Cardiopulmonary exam unremarkable today in office. Will continue to monitor. Please follow-up with PCP. # Hypertension: Blood pressure stable in office today 126/86. Discussed red flag signs of hypertension including [...] Dictation was accomplished with the use of [employer] voice recognition software, which is prone to medical misidentifications and grammatical errors. This are unintentional and the practitioner does try to identify and correct these, but some could still be present. Please do not hesitate to contact practitioner for clarification. 02/12/2024 Essential (primary) hypertension (ICD-10 - I10) Patient [...] been able to access 1.7 mg which he is using however has been dividing the [...] All patient questions answered at this time. 02/12/2024: Weight 240 pounds, BMI 32.55. Seca scan completed today to interpret the patient. Overall down 1 pound, however has had approximately 3 pound increase of fat mass. Small decrease in muscle mass. Discussed importance of increasing physical activity to decrease fat mass and maintaining and build muscle mass. Patient has been using half a dose of Wegovy 1.7 mg prescribed to pharmacy. Empasized importance of step yao increase of medication at appropriate concentration. Plan at this time to increase Wegovy to 1 mg once weekly subcu injection. Discussed proper use of medication and expected side effect profile. He will follow-up in the office in approximately 4 weeks. # Atrial fibrillation: Patient is asymptomatic in office today without chest pain, shortness of breath, dyspnea on exertion, or diaphoresis. Continue Multaq 400 mg twice daily with meals. Cardiopulmonary exam unremarkable today in office. Will continue to monitor. Please follow-up with PCP. # Hypertension: Blood pressure stable in office today 126/86. Discussed red flag signs of hypertension including [...] Dictation was accomplished with the use of [employer] voice recognition software, which is prone to medical misidentifications and grammatical errors. This are unintentional and the practitioner does try to identify and correct these, but some could still be present. Please do not hesitate to contact practitioner for clarification. PLAN OF TREATMENT Medication Medication Name Sig Start Date Stop Date Notes Wegovy 1 MG/0.5ML Inject 1 mg Subcutan eous Once weekly for 28 days 11/09/2023 Next Appt Details Provider Name:ASPEN ALEJANDRE , 04/08/2024 11:30:00 AM, [address] [facility], [facility] [address], [place], [address], Progress Notes * Maddison ALMANZA:1970 (53 yo M)Acc No.[id number]:02/12/2024 Patient:??Omar ALMANZA Provider:??ASPEN ALEJANDRE :1970?Age:53 Y?Sex:Michele aragon Date:02/12/2024 Address:[address] [place], [place] [id number] Pcp:Kuldip Stephens Subjective: * Chief Complaints: * ?1. PT HERE FOR WT MGT SECA DONE. * HPI: ?Constitutional:? Omar is a 53-year-old male with history of obesity and atrial fibrillation on Multaq who presents to the office today for weight management follow-up. Last office visit for continued management on 01/03/2024 at which time weight was 241 pounds, BMI 32.68. Currently prescribed Wegovy 0.5 mg once weekly. Patient reports continuing difficulty obtaining proper dose of medication the pharmacy. Wegovy 0.5 mg sent to [facility] at last visit. Patient states he has been using Wegovy 1.7 mg however administering half the dose to administer prescribed amount, then has been giving the other half of the medication to his significant other. Discussed importance of using the proper prescribed dose to ensure regular concentration of the medication. Reports no side effects at this time. Reports no current regular exercise regimen. Finds effect of dose to be less prominent. Interested in increasing to next dose of Wegovy. * ROS:?Constitutional: Denies sudden weight loss, fever, [...] MG/0.5ML Solution Auto-injector Inject 0.5 mg Subcutaneous Once weekly , Taking Ondansetron HCl 8 MG Tablet 1 tablet as needed Orally Once a day for nausea/vomiting, Not-Taking Wegovy 0.5 MG/0.5ML Solution Auto-injector 0.5mg Subcutaneous weekly , Not-Taking Wegovy 1 MG/0.5ML Solution Auto-injector 1mg Subcutaneous weekly , Medication List reviewed and reconciled with the patient * Allergies:??N.K.D.A. Objective: * Vitals:??HR:69/min, BP:126/8 6mm Hg, Wt:240lbs, BMI:32.55Index, Ht: 72 in, Oxygen sat %:98%. * [...] been able to access 1.7 mg which he is using however has been dividing the [...] All patient questions answered at this time. 02/12/2024: Weight 240 pounds, BMI 32.55. Seca scan completed today to interpret the patient. Overall down 1 pound, however has had approximately 3 pound increase of fat mass. Small decrease in muscle mass. Discussed importance of increasing physical activity to decrease fat mass and maintaining and build muscle mass. Patient has been using half a dose of Wegovy 1.7 mg prescribed to pharmacy. Empasized importance of step yao increase of medication at appropriate concentration. Plan at this time to increase Wegovy to 1 mg once weekly subcu injection. Discussed proper use of medication and expected side effect profile. He will follow-up in the office in approximately 4 weeks. # Atrial fibrillation: Patient is asymptomatic in office today without chest pain, shortness of breath, dyspnea on exertion, or diaphoresis. Continue Multaq 400 mg twice daily with meals. Cardiopulmonary exam unremarkable today in office. Will continue to monitor. Please follow-up with PCP. # Hypertension: Blood pressure stable in office today 126/86. Discussed red flag signs of hypertension including [...] Dictation was accomplished with the use of [employer] voice recognition software, which is prone to medical misidentifications and grammatical errors. This are unintentional and the practitioner does try to identify and correct these, but some could still be present. Please do not hesitate to contact practitioner for clarification. 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 13169 Office Visit, Est Pt., Level 4. * Procedure Codes:?? 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 * Sign off status: Completed true * Provider:??ASPEN ALEJANDRE Date:?? 024 History and Physical Notes * HPI (History of Present Illness) Category Sub-Category Detail Notes Category Not es Constitutional Omar is a 53-year-old male with history of obesity and atrial fibrillation on Multaq who presents to the office today for weight management follow-up. Last office visit for continued management on 01/03/2024 at which time weight was 241 pounds, BMI 32.68. Currently prescribed Wegovy 0.5 mg once weekly. Patient reports continuing difficulty obtaining proper dose of medication the pharmacy. Wegovy 0.5 mg sent to [facility] at last visit. Patient states he has been using Wegovy 1.7 mg however administering half the dose to administer prescribed amount, then has been giving the other half of the medication to his significant other. Discussed importance of using the proper prescribed dose to ensure regular concentration of the medication. Reports no side effects at this time. Reports no current regular exercise regimen. Finds effect of dose to be less prominent. Interested in increasing to next dose of Wegovy. Physical Examination Category Sub-Category Detail Notes Section [...]
--- OUTSIDE RECORDS SUMMARY | 2024-03-27 13:11 | XMS_ITS | Patient Health Record ---
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 Name Role Phone Angelo Kuldip Primary Care Provider OLMAN Beal Unavailable [phone] ASPEN ALEJANDRE Unavailable [phone] ALLERGIES No Known Allergies REASON FOR REFERRAL No Information MEDICATIONS Medication SIG (Take, Route, Frequency, Duration) Notes Start Date End Date Status Wegovy 1 MG/0.5ML 1mg Subcutaneous wee kly for 30 days Active Multaq 400 MG 1 tablet with meals Orally Twice a day Active Wegovy 1 MG/0.5ML 1mg Subcutaneous wee kly for 30 days 10/02/2023 Not-Taking Xarelto 20 MG Oral for 30 Days Active Zepbound 2.5 MG/0.5ML 2.5 mg weekly Subc utaneous Weekly for 30 days 03/26/2024 Active Wegovy 0.5 MG/0.5ML 0.5mg Subcutaneous w eekly for 30 days 10/01/2023 Not-Taking Ondansetron HCl 8 MG 1 tablet as needed Orally Once a day for 30 days 01/03/2024 Active Wegovy 1.7 MG/0.75ML INJECT 1.7MG SUBCUTANEOUSLY EVERY WEEK for 28 Active PROBLEMS Problem Type ICD Code Onset Dates Problem Status W/U Status Risk SNOMED Code Notes Problem Other obesity due to excess calories (E66.09) Active confirmed 389606544 Problem Essential (primary) hypertension (I10) Active confirmed 89762432 Problem Encounter for screening for lipoid disorders (Z13.220) Active confirmed Lipid screening (245454220) Problem Adult general medical exam (Z00.00) Active confirmed Adult health examination (048984136) Problem Diabetes mellitus screening (Z13.1) Active confirmed Diabetes mellit us screening (164449576) Problem Body mass index [BMI] 34.0-34.9, adult (Z68.34) Active confirmed 555355989 Problem BMI 33.0-33.9,adult (Z68.33) Active confirmed 716813041 Problem BMI 32.0-32.9,adult (Z68.32) Active confirmed 238696283 Problem Adult-onset obesity (E66.9) Active confirmed 315004851 Problem PAF (paroxysmal atrial fibrillation) (I48.0) Active confirmed 052305391 Problem Avitaminosis D (E55.9) Active confirmed Avitaminosis D (94013411) Problem H/O gastric sleeve (Z90.3) Active confirmed [id number] Problem Encounter for screening for endocrine disorder (Z13.29) Active confirmed Endocrine/metab alesha c screening (895401416) Problem Encounter for prostate cancer screening (Z12.5) Active confirmed Screening for malignant neoplasm of prostate (437665941) Problem ROLO on CPAP (G47.33) Active confirmed 48063629 VITAL SIGNS Heart Rate 92 /min 03/26/2024 Oximetry 99 % 03/26/2024 Blood pressure diastolic 76 mm Hg 03/26/2024 Height 72 in 03/26/2024 Blood pressure systolic 122 mm Hg 03/26/2024 Weight 247 lbs 03/26/2024 BMI 33.5 kg/m2 03/26/2024 Encounters Encounter Location Date Provider Diagnosis [place] [id number] [address] 11/01/2023 OLMAN HOLLOWAY [place] [address] [address] 08/30/2023 OLMAN HOLLOWAY Dietary counseling a nd surveillance Z71.3 ; Other obesity due to excess calories E66.09 ; Body mass index [BMI] 34.0-34.9, adult Z68.34 ; PAF (paroxysmal atrial fibrillation) I48.0 ; Essential (primary) hypertension I10 ; H/O gastric sleeve Z90.3 and ROLO on CPAP G47.33 [place] [address] [address] 11/07/2023 OLMAN HOLLOWAY BMI 33.0-33.9,adult Z68.33 ; Dietary counseling and surveillance Z71.3 ; Other obesity due to excess calories E66.09 ; PAF (paroxysmal atrial fibrillation) I48.0 ; Essential (primary) hypertension I10 ; H/O gastric sleeve Z90.3 and ROLO on CPAP G47.33 [place] [address] [address] 12/05/2023 ASPEN ALEJANDRE Adult-onset obesity E66.9 ; BMI 32.0-32.9,adult Z68.32 ; H/O gastric sleeve Z90.3 ; PAF (paroxysmal atrial fibrillation) I48.0 and Essential (primary) hypertension I10 [place] [address] 01/03/2024 ASPEN ALEJANDRE BMI 32.0-32.9,adult Z68.32 ; Adult-onset obesity E66.9 ; H/O gastric sleeve Z90.3 ; PAF (paroxysmal atrial fibrillation) I48.0 ; Essential (primary) hypertension I10 and Nausea R11.0 [place] [address] 02/12/2024 ASPEN ALEJANDRE BMI 32.0-32.9,adult Z68.32 ; Adult-onset obesity E66.9 ; H/O gastric sleeve Z90.3 ; PAF (paroxysmal atrial fibrillation) I48.0 and Essential (primary) hypertension I10 [place] [address] 03/26/2024 OLMAN HOLLOWAY BMI 33.0-33.9,adult Z68.33 ; Dietary counseling and surveillance Z71.3 ; Other obesity due to excess calories E66.09 ; PAF (paroxysmal atrial fibrillation) I48.0 ; Essential (primary) hypertension I10 ; H/O gastric sleeve Z90.3 and ROLO on CPAP G47.33 [place] [address] 09/15/2023 OLMAN HOLLOWAY Other obesity due to excess calories E66.09 [place] [address] 09/15/2023 OLMAN HOLLOWAY Other obesity due to excess calories E66.[address] [facility] [address] [place] [address] 10/01/[address] [facility] [address] [place] [address] 10/02/2023 OLMAN HOLLOWAY [address] [facility] [address] [place] [address] 11/09/2023 OLMAN HOLLOWAY [address] [facility] [address] [place] [address] 02/29/2024 OLMAN HOLLOWAY [facility] [address] [facility] [address] [place] [address] 09/06/2023 OLMAN HOLLOWAY ASSESSMENTS Encounter Date Diagnosis Assessment Notes Treatment [...] minimum of 6 months The most recent [place] [employer] of clinical endocrinologists and [place] [employer] of endocrin[employer] guidelines recommend patients who [...] track activity level. Consider using apps like dev9k, AgFlowpal, lose it, stick as needed for self-monitoring and weight management. Consider group exercises. Consider hiring a production trainer. Regular exercise is [place] to sustainable health [...] counseling and psychiatry and Dr Hernandez at [email or web address]. We would like to cover regular topics [...] software and direct typing Please excuse inadvertent bowling alley mechanic or typing errors, or uncorrected word substitutions Although every attempt has been made by the provider to proofread this document, occasional misspellings and typographical errors may still be present Due to the previous pandemic, and the use of personal protective equipment (PPE) This may decrease voice recognition accuracy Inadvertent bowling alley mechanic errors may occur 09/15/2023 Other obesity due [...] minimum of 6 months The most recent [place] [employer] of clinical endocrinologists and [place] [employer] of endocrinology guidelines recommend patients who [...] track activity level. Consider using apps like dev9k, AgFlowpal, lose it, stick as needed for self-monitoring and weight management. Consider group exercises. Consider hiring a production trainer. Regular exercise is [place] to sustainable health [...] counseling and psychiatry and Dr Hernandez at [email or web address]. We would like to cover regular topics [...] software and direct typing Please excuse inadvertent bowling alley mechanic or typing errors, or uncorrected word substitutions Although every attempt has been made by the provider to proofread this document, occasional misspellings and typographical errors may still be present Due to the previous pandemic, and the use of personal protective equipment (PPE) This may decrease voice recognition accuracy Inadvertent bowling alley mechanic errors may occur 08/30/2023 Other obesity due [...] minimum of 6 months The most recent [place] [employer] of clinical endocrinologists and [place] [employer] of endocrinology guidelines recommend patients who [...] track activity level. Consider using apps like dev9k, myfitnesspal, lose it, stick as needed for self-monitoring and weight management. Consider group exercises. Consider hiring a production trainer. Regular exercise is [place] to sustainable health [...] counseling and psychiatry and Dr Hernandez at [email or web address]. We would like to cover regular topics [...] software and direct typing Please excuse inadvertent bowling alley mechanic or typing errors, or uncorrected word substitutions Although every attempt has been made by the provider to proofread this document, occasional misspellings and typographical errors may still be present Due to the previous pandemic, and the use of personal protective equipment (PPE) This may decrease voice recognition accuracy Inadvertent bowling alley mechanic errors may occur 12/05/2023 BMI 32.0-32.9,adult (ICD-10 [...] Dictation was accomplished with the use of [employer] voice recognition software, which is prone to [...] Dictation was accomplished with the use of [employer] voice recognition software, which is prone to [...] Dictation was accomplished with the use of [employer] voice recognition software, which is prone to medical misidentifications and grammatical errors. This are unintentional and the practitioner does try to identify and correct these, but some could still be present. Please do not hesitate to contact practitioner for clarification. 02/12/2024 BMI 32.0-32.9,adult (ICD-10 - Z68.32) Patient [...] Dictation was accomplished with the use of [employer] voice recognition software, which is prone to medical misidentifications and grammatical errors. This are unintentional and the practitioner does try to identify and correct these, but some could still be present. Please do not hesitate to contact practitioner for clarification. 03/26/2024 BMI 33.0-33.9,adult (ICD-10 - Z68.33) Acute Concerns/Problem List: 03/26/2024 Plan for synchronized cardioversion tomorrow with [facility] thoracic surgeon Dr. Linares On Xarelto anticoagulation and Multaq [...] software and direct typing Please excuse inadvertent bowling alley mechanic or typing errors, or uncorrected word substitutions Although every attempt has been made by the provider to proofread this document, occasional misspellings and typographical errors may still be present Due to the previous pandemic, and the use of personal protective equipment (PPE) This may decrease voice recognition accuracy Inadvertent bowling alley mechanic errors may occur 02/12/2024 Adult-onset obesity (ICD-10 - E66.9) Patient [...] Dictation was accomplished with the use of [employer] voice recognition software, which is prone to [...] Dictation was accomplished with the use of [employer] voice recognition software, which is prone to [...] Dictation was accomplished with the use of [employer] voice recognition software, which is prone to [...] Dictation was accomplished with the use of [employer] voice recognition software, which is prone to [...] minimum of 6 months The most recent [place] [employer] of clinical endocrinologists and [place] [employer] of endocrinology guidelines recommend patients who [...] track activity level. Consider using apps like dev9k, AgFlow[employer], lose it, stick as needed for self-monitoring and weight management. Consider group exercises. Consider hiring a production trainer. Regular exercise is [place] to sustainable health [...] counseling and psychiatry and Dr Hernandez at [email or web address]. We would like to cover regular topics [...] software and direct typing Please excuse inadvertent bowling alley mechanic or typing errors, or uncorrected word substitutions Although every attempt has been made by the provider to proofread this document, occasional misspellings and typographical errors may still be present Due to the previous pandemic, and the use of personal protective equipment (PPE) This may decrease voice recognition accuracy Inadvertent bowling alley mechanic errors may occur 11/07/2023 Other obesity due [...] minimum of 6 months The most recent [place] [employer] of clinical endocrinologists and [place] [employer] of endocrinology guidelines recommend patients who [...] track activity level. Consider using apps like dev9k, myfitnesspal, lose it, stick as needed for self-monitoring and weight management. Consider group exercises. Consider hiring a production trainer. Regular exercise is [place] to sustainable health [...] counseling and psychiatry and Dr Hernandez at [email or web address]. We would like to cover regular topics [...] software and direct typing Please excuse inadvertent bowling alley mechanic or typing errors, or uncorrected word substitutions Although every attempt has been made by the provider to proofread this document, occasional misspellings and typographical errors may still be present Due to the previous pandemic, and the use of personal protective equipment (PPE) This may decrease voice recognition accuracy Inadvertent bowling alley mechanic errors may occur 08/30/2023 Body mass index [...] minimum of 6 months The most recent [place] [employer] of clinical endocrinologists and [place] [employer] of endocrinology guidelines recommend patients who [...] track activity level. Consider using apps like dev9k, myfitnesspal, lose it, stick as needed for self-monitoring and weight management. Consider group exercises. Consider hiring a production trainer. Regular exercise is [place] to sustainable health [...] counseling and psychiatry and Dr Hernandez at [email or web address]. We would like to cover regular topics [...] software and direct typing Please excuse inadvertent bowling alley mechanic or typing errors, or uncorrected word substitutions Although every attempt has been made by the provider to proofread this document, occasional misspellings and typographical errors may still be present Due to the previous pandemic, and the use of personal protective equipment (PPE) This may decrease voice recognition accuracy Inadvertent bowling alley mechanic errors may occur 03/26/2024 Dietary counseling and surveillance (ICD-10 - Z71.3) Acute Concerns/Problem List: 03/26/2024 Plan for synchronized cardioversion tomorrow with [facility] thoracic surgeon Dr. Linares On Xarelto anticoagulation and Multaq [...] software and direct typing Please excuse inadvertent bowling alley mechanic or typing errors, or uncorrected word substitutions Although every attempt has been made by the provider to proofread this document, occasional misspellings and typographical errors may still be present Due to the previous pandemic, and the use of personal protective equipment (PPE) This may decrease voice recognition accuracy Inadvertent bowling alley mechanic errors may occur 08/30/2023 PAF (paroxysmal atrial fibrillation) (ICD-10 - I48.0) Start Wegovy 0.25 Total time spent today [...] minimum of 6 months The most recent [place] [employer] of clinical endocrinologists and [place] [employer] of endocrinology guidelines recommend patients who [...] track activity level. Consider using apps like dev9k, AgFlow[employer], lose it, stick as needed for self-monitoring and weight management. Consider group exercises. Consider hiring a production trainer. Regular exercise is [place] to sustainable health [...] counseling and psychiatry and Dr Hernandez at [email or web address]. We would like to cover regular topics [...] software and direct typing Please excuse inadvertent bowling alley mechanic or typing errors, or uncorrected word substitutions Although every attempt has been made by the provider to proofread this document, occasional misspellings and typographical errors may still be present Due to the previous pandemic, and the use of personal protective equipment (PPE) This may decrease voice recognition accuracy Inadvertent bowling alley mechanic errors may occur 11/07/2023 PAF (paroxysmal atrial [...] minimum of 6 months The most recent [place] [employer] of clinical endocrinologists and [place] [employer] of endocrinology guidelines recommend patients who [...] track activity level. Consider using apps like dev9k, myfitthe grafterpal, lose it, stick as needed for self-monitoring and weight management. Consider group exercises. Consider hiring a production trainer. Regular exercise is [place] to sustainable health [...] counseling and psychiatry and Dr Hernandez at [email or web address]. We would like to cover regular topics [...] software and direct typing Please excuse inadvertent bowling alley mechanic or typing errors, or uncorrected word substitutions Although every attempt has been made by the provider to proofread this document, occasional misspellings and typographical errors may still be present Due to the previous pandemic, and the use of personal protective equipment (PPE) This may decrease voice recognition accuracy Inadvertent bowling alley mechanic errors may occur 12/05/2023 PAF (paroxysmal atrial [...] Dictation was accomplished with the use of [employer] voice recognition software, which is prone to [...] Dictation was accomplished with the use of [employer] voice recognition software, which is prone to medical misidentifications and grammatical errors. This are unintentional and the practitioner does try to identify and correct these, but some could still be present. Please do not hesitate to contact practitioner for clarification. 03/26/2024 Other obesity due to excess calories (ICD-10 - E66.09) Acute Concerns/Problem List: 03/26/2024 Plan for synchronized cardioversion tomorrow with [facility] thoracic surgeon Dr. Linares On Xarelto anticoagulation and Multaq [...] software and direct typing Please excuse inadvertent bowling alley mechanic or typing errors, or uncorrected word substitutions Although every attempt has been made by the provider to proofread this document, occasional misspellings and typographical errors may still be present Due to the previous pandemic, and the use of personal protective equipment (PPE) This may decrease voice recognition accuracy Inadvertent bowling alley mechanic errors may occur 02/12/2024 PAF (paroxysmal atrial fibrillation) (ICD-10 - [...] Dictation was accomplished with the use of [employer] voice recognition software, which is prone to medical misidentifications and grammatical errors. This are unintentional and the practitioner does try to identify and correct these, but some could still be present. Please do not hesitate to contact practitioner for clarification. 03/26/2024 PAF (paroxysmal atrial fibrillation) (ICD-10 - I48.0) Acute Concerns/Problem List: 03/26/2024 Plan for synchronized cardioversion tomorrow with [facility] thoracic surgeon Dr. Linares On Xarelto anticoagulation and Multaq [...] software and direct typing Please excuse inadvertent bowling alley mechanic or typing errors, or uncorrected word substitutions Although every attempt has been made by the provider to proofread this document, occasional misspellings and typographical errors may still be present Due to the previous pandemic, and the use of personal protective equipment (PPE) This may decrease voice recognition accuracy Inadvertent bowling alley mechanic errors may occur 03/26/2024 Essential (primary) hypertension (ICD-10 - I10) Acute Concerns/Problem List: 03/26/2024 Plan for synchronized cardioversion tomorrow with [facility] thoracic surgeon Dr. Linares On Xarelto anticoagulation and Multaq [...] software and direct typing Please excuse inadvertent bowling alley mechanic or typing errors, or uncorrected word substitutions Although every attempt has been made by the provider to proofread this document, occasional misspellings and typographical errors may still be present Due to the previous pandemic, and the use of personal protective equipment (PPE) This may decrease voice recognition accuracy Inadvertent bowling alley mechanic errors may occur 02/12/2024 Essential (primary) hypertension (ICD-10 - I10) [...] Dictation was accomplished with the use of [employer] voice recognition software, which is prone to [...] Dictation was accomplished with the use of [employer] voice recognition software, which is prone to [...] Dictation was accomplished with the use of [employer] voice recognition software, which is prone to [...] minimum of 6 months The most recent [place] [employer] of clinical endocrinologists and [place] [employer] of endocrinology guidelines recommend patients who [...] track activity level. Consider using apps like dev9k, Ag[employer], lose it, stick as needed for self-monitoring and weight management. Consider group exercises. Consider hiring a production trainer. Regular exercise is [place] to sustainable health [...] counseling and psychiatry and Dr Hernandez at [email or web address]. We would like to cover regular topics [...] software and direct typing Please excuse inadvertent bowling alley mechanic or typing errors, or uncorrected word substitutions Although every attempt has been made by the provider to proofread this document, occasional misspellings and typographical errors may still be present Due to the previous pandemic, and the use of personal protective equipment (PPE) This may decrease voice recognition accuracy Inadvertent bowling alley mechanic errors may occur 11/07/2023 Essential (primary) hypertension [...] minimum of 6 months The most recent [place] [employer] of clinical endocrinologists and [place] [employer] of endocrinology guidelines recommend patients who [...] track activity level. Consider using apps like dev9k, [employer], lose it, stick as needed for self-monitoring and weight management. Consider group exercises. Consider hiring a production trainer. Regular exercise is [place] to sustainable health [...] counseling and psychiatry and Dr Hernandez at [email or web address]. We would like to cover regular topics [...] software and direct typing Please excuse inadvertent bowling alley mechanic or typing errors, or uncorrected word substitutions Although every attempt has been made by the provider to proofread this document, occasional misspellings and typographical errors may still be present Due to the previous pandemic, and the use of personal protective equipment (PPE) This may decrease voice recognition accuracy Inadvertent bowling alley mechanic errors may occur 08/30/2023 H/O gastric sleeve (ICD-10 - Z90.3) Start Wegovy 0.25 Total time spent today [...] minimum of 6 months The most recent [place] [employer] of clinical endocrinologists and [place] [employer] of endocrinology guidelines recommend patients who [...] track activity level. Consider using apps like dev9k, myfitnesspal, lose it, stick as needed for self-monitoring and weight management. Consider group exercises. Consider hiring a production trainer. Regular exercise is [place] to sustainable health [...] counseling and psychiatry and Dr Hernandez at [email or web address]. We would like to cover regular topics [...] software and direct typing Please excuse inadvertent bowling alley mechanic or typing errors, or uncorrected word substitutions Although every attempt has been made by the provider to proofread this document, occasional misspellings and typographical errors may still be present Due to the previous pandemic, and the use of personal protective equipment (PPE) This may decrease voice recognition accuracy Inadvertent bowling alley mechanic errors may occur 11/07/2023 H/O gastric sleeve [...] minimum of 6 months The most recent [place] [employer] of clinical endocrinologists and [place] [employer] of endocrinology guidelines recommend patients who [...] track activity level. Consider using apps like dev9k, myfitnesspal, lose it, stick as needed for self-monitoring and weight management. Consider group exercises. Consider hiring a production trainer. Regular exercise is [place] to sustainable health [...] counseling and psychiatry and Dr Hernandez at [email or web address]. We would like to cover regular topics [...] software and direct typing Please excuse inadvertent bowling alley mechanic or typing errors, or uncorrected word substitutions Although every attempt has been made by the provider to proofread this document, occasional misspellings and typographical errors may still be present Due to the previous pandemic, and the use of personal protective equipment (PPE) This may decrease voice recognition accuracy Inadvertent bowling alley mechanic errors may occur 01/03/2024 Essential (primary) hypertension [...] Dictation was accomplished with the use of [employer] voice recognition software, which is prone to [...] Dictation was accomplished with the use of [employer] voice recognition software, which is prone to medical misidentifications and grammatical errors. This are unintentional and the practitioner does try to identify and correct these, but some could still be present. Please do not hesitate to contact practitioner for clarification. 03/26/2024 H/O gastric sleeve (ICD-10 - Z90.3) Acute Concerns/Problem List: 03/26/2024 Plan for synchronized cardioversion tomorrow with [facility] thoracic surgeon Dr. Linares On Xarelto anticoagulation and Multaq [...] software and direct typing Please excuse inadvertent bowling alley mechanic or typing errors, or uncorrected word substitutions Although every attempt has been made by the provider to proofread this document, occasional misspellings and typographical errors may still be present Due to the previous pandemic, and the use of personal protective equipment (PPE) This may decrease voice recognition accuracy Inadvertent bowling alley mechanic errors may occur 03/26/2024 ROLO on CPAP (ICD-10 - G47.33) Acute Concerns/Problem List: 03/26/2024 Plan for synchronized cardioversion tomorrow with [facility] thoracic surgeon Dr. Linares On Xarelto anticoagulation and Multaq [...] software and direct typing Please excuse inadvertent bowling alley mechanic or typing errors, or uncorrected word substitutions Although every attempt has been made by the provider to proofread this document, occasional misspellings and typographical errors may still be present Due to the previous pandemic, and the use of personal protective equipment (PPE) This may decrease voice recognition accuracy Inadvertent bowling alley mechanic errors may occur 11/07/2023 ROLO on CPAP (ICD-10 - G47.33) [...] minimum of 6 months The most recent [place] [employer] endocrinologists and [place] [employer]in[employer] guidelines recommend patients who [...] track activity level. Consider using apps like dev9k, myfitnesspal, lose it, stick as needed for self-monitoring and weight management. Consider group exercises. Consider hiring a production trainer. Regular exercise is [place] to sustainable health [...] counseling and psychiatry and Dr Hernandez at [email or web address]. We would like to cover regular topics [...] software and direct typing Please excuse inadvertent bowling alley mechanic or typing errors, or uncorrected word substitutions Although every attempt has been made by the provider to proofread this document, occasional misspellings and typographical errors may still be present Due to the previous pandemic, and the use of personal protective equipment (PPE) This may decrease voice recognition accuracy Inadvertent bowling alley mechanic errors may occur 08/30/2023 ROLO on CPAP [...] minimum of 6 months The most recent [place] [employer] endocrinologists and [place] [employer]ocrin[employer] guidelines recommend patients who [...] track activity level. Consider using apps like dev9k, Ag[employer], lose it, stick as needed for self-monitoring and weight management. Consider group exercises. Consider hiring a production trainer. Regular exercise is [place] to sustainable health [...] counseling and psychiatry and Dr Hernandez at [email or web address]. We would like to cover regular topics [...] software and direct typing Please excuse inadvertent bowling alley mechanic or typing errors, or uncorrected word substitutions Although every attempt has been made by the provider to proofread this document, occasional misspellings and typographical errors may still be present Due to the previous pandemic, and the use of personal protective equipment (PPE) This may decrease voice recognition accuracy Inadvertent bowling alley mechanic errors may occur PLAN OF TREATMENT Pending Test Test Name Order Date LIPID PANEL, STANDARD 03/26/2024 COMPREHENSIVE METABOLIC PANEL 03/26/2024 CBC (INCLUDES DIFF/PLT) 03/26/2024 URINALYSIS, COMPLETE 03/26/2024 HEMOGLOBIN A1c 03/26/2024 PSA (FREE AND TOTAL) 03/26/2024 TSH 03/26/2024 VITAMIN D,25-OH,TOTAL,IA 03/26/2024 Next Appt Details Provider Name:ASPEN ALEJANDRE , 04/08/2024 11:30:00 AM, [address] [facility], [facility] [address], [place], [address], Insurance Providers Payer Name Payer Address Payer Phone Subscriber Number Group Number Insured Name Patient Relationship to Insured Coverage Start Date Coverage End Date [facility] [address] [place] [address] [id number] Omar Goldman Self - patient is the insured 4 MEDICAL (GENERAL) HISTORY Medical History History ICD Code high blood pressure Afib sleep apnea weight gain/loss arthritis seasonal allergies
--- NOTE | 2024-03-27 13:26 | ECG_ITS ---
Test Reason : s/p cardioversion Blood Pressure : */* mmHG Vent. Rate : 68 BPM Atrial Rate : 68 BPM P-R Int : 190 ms QRS Dur : 92 ms QT Int : 428 ms P-R-T Axes : 44 1 19 degrees QTcB Int : 455 ms Normal sinus rhythm Possible Left atrial enlargement Borderline ECG When compared with ECG of 18-Mar-2024 15:23, Sinus rhythm has replaced Atrial fibrillation Referred By: Nikos Muniz Electronically Signed By: NIKOS MUNIZ MD
[2024-03-27 13:27] VITALS: BP 107/74; PULSE 62; RESP 14; TEMP 36.4; O2SAT 96
--- NOTE | 2024-03-27 13:38 | HO.CARDIVERS ---
Cardioversion Procedure Note Cardioversion Date of Procedure: 03/27/2024 Ordering Provider: Junie Muniz Performing Provider: Junie Muniz Indication for Procedure: Persistent symptomatic recurrent atrial fibrillation Pre-Op Diagnosis: Same Post-Op Diagnosis: Normal sinus rhythm Performed with Transesophageal Echo: No History: Patient has prior history of atrial fibrillation and had recurrent episode after stressful situation. Symptomatic with it. Came to the office and EKG confirmed presence of atrial fibrillation. He was then started on oral anticoagulation and subsequently started on Multaq and brought in for synchronized cardioversion Consent: Verbal and Written consent was obtained from the patient before starting after confirming oral anticoagulation use an antiarrhythmic use. The patient was made aware of the risk of synchronized cardioversion including benefits and alternatives Procedure: After consent obtained, cardioversion pads were attached in anteroposterior configuration and the patient was sedated by the anesthesia team. Once adequate sedation achieved, patient was delivered 200 joules of biphasic synchronized energy in anteroposterior configuration] Complications: None Impression: Successful conversion to sinus rhythm Recommendations: 1. Continue Multaq and Xarelto 2. Follow up in the clinic after Holter monitor 3. Twelve lead EKG
[2024-03-27 13:43] VITALS: BP 111/78; PULSE 64; RESP 16; TEMP 36.4; O2SAT 99
== END 2024-03-27 13:58 | disposition home or self-care (01) ==
PROVIDERS: PCP Internal Medicine; Visit Provider Internal Medicine Cardiovascular Disease
PROC: 5A2204Z Restoration of Cardiac Rhythm, Single (ICD-10-PCS; principal; 2024-03-27 13:00)
DX: I48.0 Paroxysmal atrial fibrillation (principal); I10 Essential (primary) hypertension; Z79.01 Long term (current) use of anticoagulants; G47.33 Obstructive sleep apnea (adult) (pediatric); Z99.89 Dependence on other enabling machines and devices; Z79.899 Other long term (current) drug therapy
CPT/HCPCS: 92960; 93005; J2704

== ENCOUNTER → 2024-03-27 11:14 | Outpatient (BNV) | payer OTHER, SELFPAY | PROVIDERS: PCP Internal Medicine; Visit Provider Internal Medicine Cardiovascular Disease | DX: I48.0 Paroxysmal atrial fibrillation (principal); I42.9 Cardiomyopathy, unspecified | CPT/HCPCS: 92960; 93010 ==